=== PATIENT | male | born 1945 | race Caucasian/White ===

== ENCOUNTER 2017-03-18 14:47 | Inpatient (IN) | payer MEDICARE ==
[~2017-03-18] VITALS: Ht 170.2 cm; Wt 54.0 kg
[~2017-03-18 14:47] MED LIST: ALBU2.5V36 INH; ALP1 PO; ALPR-429 PO; ALPR-451 PO; ASPI500T53 PO; ATOR40TA24 PO; AZIT-1 PO; CALC1TAB32 PO; CALC500T42 PO; CAR350 PO; CARI-1 PO; CARI-327 PO; CEP500 PO; CIPDEXPT LEFT EAR; CLO1 PO; CLO75 PO; CLON-303 PO; CLOP75TA43 PO; ERGO400T9 PO; ESOM40CA42 PO; EZET10TA41 PO; EZET1TAB55 PO; FLU60SYR30 IM ONLY; GABA-549 PO; GEMF600T91 PO; KET10 PO; LEVO112T43 PO; LEVO75TA73 PO; MEGE40TA19 PO; MOM PO; OMEP-153 PO; OMEP-218 PO; ONDA4TAB PO; ONDA4TAB97 PO; POLY119P24 PO; RIZA10TA PO; SERT-179 PO; SERT-181 PO; TAMS0.4C25 PO; TAMS0.4C70 PO; TAPE100T9 PO; TAPE200T PO; TER20I; TIZA-128 PO; VAR1 PO; VERA240C10 PO; VERA240T84 PO; ZOLP-350 PO; [UNRECOGNIZED DRUG - CODE] ASDIRECTED; [UNRECOGNIZED DRUG - CODE] MC
[2017-03-18] MEDS ORDERED: NS(*) 0.9% 1000 ML BAG 1,000 ML IV ONE (14:48)
[2017-03-18] MEDS ORDERED: ALBUTEROL 2.5 MG/3 ML NEB NEB ONE (14:50)
--- NOTE | 2017-03-18 14:52 | ER Report ---
History and Physical Time Seen By MD: 14:52 Hx. of Stated Complaint: Dyspnea HPI/ROS Patient was sent here from urgent care with a diagnosis of right lower lobe pneumonia patient states she's felt ill for 1 month has seen urgent care multiple times states they have not giving him any treatment they felt his lungs were clear today was having sats in the 70s increased weakness chills and went to urgent care they did a chest x-ray incident to the emergency room Allergies: Coded Allergies: acetaminophen (Verified Allergy, Unknown, 03/18/17) bupropion (Verified Allergy, Unknown, 03/18/17) fentanyl (Verified Allergy, Unknown, 03/18/17) hydrocodone (Verified Allergy, Unknown, 03/18/17) hydromorphone (Verified Allergy, Unknown, 03/18/17) Home Meds Active Scripts Verapamil Hcl (VERAPAMIL ER) 240 Mg Cap24h.pel, 1 CAP PO QDAY, #60 CAP Prov:MARKO MEZA MD 02/25/17 Alprazolam (XANAX) 0.5 Mg Tablet, 2 TAB PO TID Y for ANXIETY, #60 TAB Prov:MARKO MEZA MD 01/25/17 Ondansetron Hcl (ZOFRAN) 4 Mg Tablet, 1 TAB PO Q4H Y for NAUSEA, #30 TAB 3 Refills Prov:MARKO MEZA MD 01/03/17 Tamsulosin Hcl (TAMSULOSIN HCL) 0.4 Mg Cap.er.24h, 1 CAP PO DAILY, #90 CAP 4 Refills Prov:MARKO MEZA MD 01/03/17 Sertraline Hcl (SERTRALINE HCL) 100 Mg Tablet, 1.5 TAB PO HS, #90 TAB 4 Refills Prov:MARKO MEZA MD 01/03/17 Clopidogrel Bisulfate (PLAVIX) 75 Mg Tablet, 1 TAB PO QDAY, #90 TAB 4 Refills Prov:MARKO MEZA MD 01/03/17 Rizatriptan Benzoate (MAXALT) 10 Mg Tablet, 1 TAB PO PRN for HEADACHE, #30 TAB 3 Refills Prov:MARKO MEZA MD 01/03/17 Ezetimibe (ZETIA) 10 Mg Tablet, 1 TAB PO QDAY, #90 TAB 2 Refills Prov:MARKO MEZA MD 10/14/16 Reported Medications Ezetimibe (ZETIA) 10 Mg Tablet, 10 MG PO QDAY, TAB 03/18/17 Carbidopa/Levodopa (CARBIDOPA-LEVO 25-100 MG ODT) 1 Each Tab.rapdis, 1 EACH PO BID 03/18/17 Tizanidine Hcl (TIZANIDINE HCL) 4 Mg Capsule, 4 MG PO TID, CAPSULE 03/18/17 Levothyroxine Sodium (LEVOTHYROXINE SODIUM) 100 Mcg Tablet, 125 MCG PO QDAY, TAB 03/18/17 Zolpidem Tartrate (AMBIEN) 10 Mg Tablet, 1 TAB PO QHS, TAB 11/03/16 Tens Units (TENS 504) 1 Each Each, EACH MC 11/03/16 Omeprazole Magnesium (PRILOSEC OTC) 20 Mg Tablet.dr, 1 TAB PO QDAY, TAB 11/03/16 Tapentadol Hcl (NUCYNTA) 100 Mg Tablet, 200 MG PO BID May take 75 mg for breakthrough pain 11/03/16 Polyethylene Glycol 3350 (MIRALAX) 119 Gm Powder, 119 GM PO BID 11/03/16 Magnesium Hydroxide (MILK OF MAGNESIA) Unknown Strength Oral.susp, PO, BOTTLE 11/03/16 Gabapentin (GABAPENTIN) 300 Mg Capsule, 300 MG PO BID, CAPSULE 11/03/16 Teriparatide (Forteo) 20 Mcg/Dose (600 Mcg/2.4 Ml) Pen.injctr, DAILY 11/03/16 Carisoprodol (CARISOPRODOL) 350 Mg Tablet, 350 MG PO DAILY, TAB 11/03/16 Calcium Carb & Cit/Vitamin D3 (CALCIUM + D3 ER TABLET) 1 Each Tablet.er, 1 TAB PO DAILY 11/03/16 Atorvastatin Calcium (LIPITOR) 40 Mg Tablet, 1 TAB PO QDAY, TAB 11/03/16 Aspirin (ASPIRIN) Unknown Strength Tablet, PO DAILY, TAB 11/03/16 Discontinued Scripts Levothyroxine Sodium (LEVOTHYROXINE SODIUM) 75 Mcg Tablet, 75 MCG PO QDAY, #90 TAB 4 Refills one and one half pills per day. started aflter last lab showed tsh of 91 Prov:MARKO MEZA MD 01/03/17 Past Medical/Surgical History hypothyroid, tonsillectomy, tia, coronary stent, hyperlipidemia, htn, gerd, hiatal hernia, amanda, appy, back pain, Reviewed Nurses Notes: Yes Old Medical Records Reviewed: Yes Hx Smoking: Yes (0.5 PPD) Smoking Status: Current: Every Day Smoker, Light Tobacco Smoker Hx Substance Use Disorder: No Hx Alcohol Use: No Family History of: Cardiac (mi father) Constitutional Vital Sign - Last 24 Hours 03/18/17 03/18/17 03/18/17 03/18/17 14:50 14:52 15:00 15:00 Temp 98.3 Pulse 75 66 Resp 20 18 B/P (MAP) 160/99 Pulse Ox 86 88 O2 Delivery Nasal Cannula Nasal Cannula O2 Flow Rate 2.5 4.0 03/18/17 03/18/17 03/18/17 03/18/17 15:06 15:08 15:17 15:30 Pulse 67 70 Resp 18 8 B/P (MAP) 145/92 (109) 140/84 (102) Pulse Ox 94 03/18/17 03/18/17 16:00 16:05 Pulse 70 Resp 12 B/P (MAP) 137/90 (106) Pulse Ox 92 Physical Exam 72-year-old male alert oriented moderate distress HEENT has normocephalic atraumatic tympanic membranes are non-reddened throat is non-reddened mucous membranes are moist neck is supple no JVD heart rate is regular no murmurs rubs or gallops lungs decreased bilateral bases crackles in the right base abdomen is soft bowel sounds 4 quadrants moves all extremities no peripheral edema Medical Decision Making Data Points Result Diagram: 03/18/17 1501 03/18/17 1501 Laboratory Hematology Test 03/18/17 15:01 03/18/17 15:09 03/18/17 15:52 Red Blood Count 4.92 M/uL (4.00-5.60) Mean Corpuscular Volume 92.2 fL (80.0-96.0) Mean Corpuscular Hemoglobin 31.6 pg (26.0-33.0) Mean Corpuscular Hemoglobin Concent 34.2 g/dL (32.0-36.0) Red Cell Distribution Width 12.3 % (11.5-14.5) Mean Platelet Volume 8.1 fL (7.2-11.1) Neutrophils (%) (Auto) 63.1 % (39.4-72.5) Lymphocytes (%) (Auto) 18.4 % (17.6-49.6) Monocytes (%) (Auto) 15.4 % (4.1-12.4) Eosinophils (%) (Auto) 1.9 % (0.4-6.7) Basophils (%) (Auto) 1.2 % (0.3-1.4) Nucleated RBC Relative Count (auto) 0.1 /100WBC Neutrophils # (Auto) 6.3 K/uL (2.0-7.4) Lymphocytes # (Auto) 1.8 K/uL (1.3-3.6) Monocytes # (Auto) 1.5 K/uL (0.3-1.0) Eosinophils # (Auto) 0.2 K/uL (0.0-0.5) Basophils # (Auto) 0.1 K/uL (0.0-0.1) Nucleated RBC Absolute Count (auto) 0.01 K/uL D-Dimer Quantitative (PE/DVT) 0.42 ug/ml (0-0.50) Sodium Level 142 mmol/L (137-145) Potassium Level 3.4 mmol/L (3.5-5.0) Chloride Level 105 mmol/L (98-107) Carbon Dioxide Level 28 mmol/L (22-30) Blood Urea Nitrogen 16 mg/dl (9-21) Creatinine 1.20 mg/dl (0.66-1.25) Glomerular Filtration Rate Calc 59.2 Random Glucose 76 mg/dl (75-110) Calcium Level 8.5 mg/dl (8.4-10.2) Magnesium Level 1.8 mg/dl (1.7-2.2) Total Bilirubin 0.7 mg/dl (0.2-1.3) Aspartate Amino Transf (AST/SGOT) 20 U/L (0-35) Alanine Aminotransferase (ALT/SGPT) 25 U/L (0-56) Alkaline Phosphatase 95 U/L (0-126) Troponin I < 0.012 ng/ml B-Type Natriuretic Peptide 1400 pg/ml (0-100) Total Protein 6.6 gm/dl (6.3-8.2) Albumin 3.3 g/dl (3.5-5.0) Influenza Virus Type A (PCR) Negative (NEGATIVE) Influenza Virus Type B (PCR) Negative (NEGATIVE) Urine Color Zoë Urine Clarity Clear Urine pH 5.0 pH (4.8-9.5) Urine Specific [place] 1.032 Urine Protein 30 mg/dL (NEGATIVE) Urine Glucose (UA) Negative mg/dL (NEGATIVE) Urine Ketones Negative mg/dL (NEGATIVE) Urine Blood Negative (NEGATIVE) Urine Nitrite Negative (NEGATIVE) Urine Bilirubin Small (NEGATIVE) Urine Urobilinogen 4.0 mg/dL (0.2-1.9) Urine Leukocyte Esterase Negative (NEGATIVE) Urine RBC <1 /HPF (0-2/HPF) Urine WBC 2 /HPF (0-5/HPF) Urine Squamous Epithelial Cells None /LPF (</=FEW) Urine Calcium Oxalate Crystals Few /HPF (NONE) Urine Bacteria Negative /HPF (NONE-FEW) Urine Hyaline Casts Few /LPF (NONE-FEW) Urine Mucus Few /HPF (NONE-FEW) Chemistry Test 03/18/17 15:01 03/18/17 15:09 03/18/17 15:52 White Blood Count 10.0 k/uL (4.5-11.0) Red Blood Count 4.92 M/uL (4.00-5.60) Hemoglobin 15.5 g/dL (14.0-18.0) Hematocrit 45.3 % (42.0-52.0) Mean Corpuscular Volume 92.2 fL (80.0-96.0) Mean Corpuscular Hemoglobin 31.6 pg (26.0-33.0) Mean Corpuscular Hemoglobin Concent 34.2 g/dL (32.0-36.0) Red Cell Distribution Width 12.3 % (11.5-14.5) Platelet Count 153 K/uL (150-450) Mean Platelet Volume 8.1 fL (7.2-11.1) Neutrophils (%) (Auto) 63.1 % (39.4-72.5) Lymphocytes (%) (Auto) 18.4 % (17.6-49.6) Monocytes (%) (Auto) 15.4 % (4.1-12.4) Eosinophils (%) (Auto) 1.9 % (0.4-6.7) Basophils (%) (Auto) 1.2 % (0.3-1.4) Nucleated RBC Relative Count (auto) 0.1 /100WBC Neutrophils # (Auto) 6.3 K/uL (2.0-7.4) Lymphocytes # (Auto) 1.8 K/uL (1.3-3.6) Monocytes # (Auto) 1.5 K/uL (0.3-1.0) Eosinophils # (Auto) 0.2 K/uL (0.0-0.5) Basophils # (Auto) 0.1 K/uL (0.0-0.1) Nucleated RBC Absolute Count (auto) 0.01 K/uL D-Dimer Quantitative (PE/DVT) 0.42 ug/ml (0-0.50) Glomerular Filtration Rate Calc 59.2 Calcium Level 8.5 mg/dl (8.4-10.2) Magnesium Level 1.8 mg/dl (1.7-2.2) Total Bilirubin 0.7 mg/dl (0.2-1.3) Aspartate Amino Transf (AST/SGOT) 20 U/L (0-35) Alanine Aminotransferase (ALT/SGPT) 25 U/L (0-56) Alkaline Phosphatase 95 U/L (0-126) Troponin I < 0.012 ng/ml B-Type Natriuretic Peptide 1400 pg/ml (0-100) Total Protein 6.6 gm/dl (6.3-8.2) Albumin 3.3 g/dl (3.5-5.0) Influenza Virus Type A (PCR) Negative (NEGATIVE) Influenza Virus Type B (PCR) Negative (NEGATIVE) Urine Color Zoë Urine Clarity Clear Urine pH 5.0 pH (4.8-9.5) Urine Specific [place] 1.032 Urine Protein 30 mg/dL (NEGATIVE) Urine Glucose (UA) Negative mg/dL (NEGATIVE) Urine Ketones Negative mg/dL (NEGATIVE) Urine Blood Negative (NEGATIVE) Urine Nitrite Negative (NEGATIVE) Urine Bilirubin Small (NEGATIVE) Urine Urobilinogen 4.0 mg/dL (0.2-1.9) Urine Leukocyte Esterase Negative (NEGATIVE) Urine RBC <1 /HPF (0-2/HPF) Urine WBC 2 /HPF (0-5/HPF) Urine Squamous Epithelial Cells None /LPF (</=FEW) Urine Calcium Oxalate Crystals Few /HPF (NONE) Urine Bacteria Negative /HPF (NONE-FEW) Urine Hyaline Casts Few /LPF (NONE-FEW) Urine Mucus Few /HPF (NONE-FEW) Coagulation Test 03/18/17 15:01 D-Dimer Quantitative (PE/DVT) 0.42 ug/ml Urinalysis Test 03/18/17 15:52 Urine Color Zoë Urine Clarity Clear Urine pH 5.0 pH (4.8-9.5) Urine Specific [place] 1.032 Urine Protein 30 mg/dL (NEGATIVE) Urine Glucose (UA) Negative mg/dL (NEGATIVE) Urine Ketones Negative mg/dL (NEGATIVE) Urine Blood Negative (NEGATIVE) Urine Nitrite Negative (NEGATIVE) Urine Bilirubin Small (NEGATIVE) Urine Urobilinogen 4.0 mg/dL (0.2-1.9) Urine Leukocyte Esterase Negative (NEGATIVE) Urine RBC <1 /HPF (0-2/HPF) Urine WBC 2 /HPF (0-5/HPF) Urine Squamous Epithelial Cells None /LPF (</=FEW) Urine Calcium Oxalate Crystals Few /HPF (NONE) Urine Bacteria Negative /HPF (NONE-FEW) Urine Hyaline Casts Few /LPF (NONE-FEW) Urine Mucus Few /HPF (NONE-FEW) EKG/Imaging Imaging FACILITY: [facility] [place] PATIENT NAME: Zurdo Munoz : 1945 MR: [id number] V: [id number] EXAM DATE: ORDERING PHYSICIAN: IZZY FOFANA TECHNOLOGIST: Location: [facility] [place] Patient: Zurdo Munoz : 1945 Visit/Account:[id number] Date of Sevice: 03/18/2017 CHEST SINGLE AP Indication: Respiratory distress.. Comparison: 10/06/2015. Findings: Cardiac silhouette is upper limits normal for size. Mediastinal silhouette and pulmonary vessels within normal limits. There is right lower lobe patchy hazy opacity with a associated pleural effusion. The remaining lung vásquez are clear. No left effusion. No pneumothorax or discrete nodule. Chronic interstitial changes seen bilaterally. Upper abdomen is unremarkable. No acute bony abnormality. IMPRESSION: 1. Small right pleural effusion with associated atelectasis versus early infiltrate. Report Dictated By: Jason Dawson at 03/18/2017 3:26 PM Report E-Signed By: Jason Dawson at 03/18/2017 3:28 PM WSN:[id number] ED Course/Re-evaluation Clinical Indication for ER IV: Hydration ED Course Initial doses of Levaquin and Zosyn given on arrival note that he did receive DuoNeb and Solu-Medrol 125 in the emergency room did talk to Dr. Shamar Lemon but this patient will that made him for pleural effusion Re-evaluation Talk to Dr. Shamar demarco son about this patient and he will be admitted from the emergency room Decision to Disposition Date: Mar 18, 2017 Decision to Disposition Time: 16:18 Depart Departure Latest Vital Signs Vital Signs Date Time Temp Pulse Resp B/P (MAP) Pulse Ox O2 Delivery O2 Flow Rate FiO2 03/18/17 16:05 70 12 92 03/18/17 16:00 137/90 (106) 03/18/17 15:00 Nasal Cannula 4.0 03/18/17 14:52 98.3 Impression: Primary Impression: Pneumonia Additional Impressions: Pleural effusion Hypoxia COPD (chronic obstructive pulmonary disease) Condition: Improved Disposition: Admitted from ER Referrals: MARKO MEZA MD (PCP) Problem Qualifiers IZZY FOFANA Mar 18, 2017 14:52
[2017-03-18] MEDS ORDERED: methylPREDNIS SUCC 125 MG/2ML IVP ONE (15:10)
[2017-03-18] MEDS ORDERED: PIPERACILLIN/TAZO*3.375GM VIAL 3.375 GM in NS(*) 0.9% 100 ML ADDVANT BAG 100 ML IVPB ONE (15:15)
[2017-03-18] MEDS ORDERED: LEVOFLOXACIN/D5W 750 MG/150 ML 150 ML IVPB ONE ×2 (15:15→16:35)
[2017-03-18 15:22] LABS: PLATELET COUNT, AUTOMATED 153 K/uL (150-450)
--- NOTE | 2017-03-18 15:34 | RADIOLOGY IMAGING REPORT ---
FACILITY: [facility] PATIENT NAME: Zurdo Munoz : 1945 MR: [id number] V: [id number] EXAM DATE: ORDERING PHYSICIAN: IZZY FOFANA TECHNOLOGIST: Location: [facility] Patient: Zurdo Munoz : 1945 Visit/Account:[id number] Date of Sevice: 03/18/2017 CHEST SINGLE AP Indication: Respiratory distress.. Comparison: 10/06/2015. Findings: Cardiac silhouette is upper limits normal for size. Mediastinal silhouette and pulmonary vessels with in normal limits. There is right lower lobe patchy hazy opacity with a associated pleural effusion. The remaining lung vásquez are clear. No left effusion. No pneumothorax or discrete nodule. Chronic interstitial changes seen bilaterally. Upper abdomen is unremarkable. No acute bony abnormali ty. IMPRESSION: 1. Small right pleural effusion with associated atelectasis versus early infiltrate. Report Dictated By: Jason Dawson at 03/18/2017 3:26 PM Report E-Signed By: Jason Dawson at 03/18/2017 3:28 PM WSN:[id number]
--- NOTE | 2017-03-18 16:01 | EKG ---
FACILITY: [facility] [place] PATIENT NAME: CHERELLE ROBLES : [id number] MR: [id number] V: [id number] EXAM DATE: ORDERING PHYSICIAN: IZZY FOFANA TECHNOLOGIST: ROSA MARIA Test Reason : SOB Blood Pressure : / mmHG Vent. Rate : 069 BPM Atrial Rate : 069 BPM P-R Int : 142 ms QRS Dur : 086 ms QT Int : 468 ms P-R-T Axes : 059 006 051 degrees QTc Int : 501 ms Sinus rhythm Possible Left atrial enlargement Prolonged QT Abnormal ECG Confirmed by PANCHO LA ([id number]) on 03/18/2017 8:20:12 PM Referred By: MINA Confirmed By:PANCHO LA
[2017-03-18] MEDS ORDERED: LEVO-3 PO (16:06)
[2017-03-18] MEDS ORDERED: EZET10TA41 PO (16:06)
[2017-03-18] MEDS ORDERED: CARB-127 PO (16:06)
[2017-03-18] MEDS ORDERED: TIZA4CAP3 PO (16:06)
[2017-03-18 17:48] VITALS: BP 153/86
[2017-03-18] MEDS ORDERED: NS(*) 0.9% 1000 ML BAG 1,000 ML IV PRN (18:24)
--- NOTE | 2017-03-18 19:06 | History & Physical ---
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 He reports increasing dyspnea, cough over past few months. He reports very little sputum production. No obvious fevers/chills. He has had some decreased appetite in past, but reports this has been improved. His weight has actually increased since last summer. He denies any CP or palpitations. He does report some orthopnea type symptoms. He was evaluate din the ER and found to have RLL infiltrate and pleural effusion on CXR. His BNP was also elevated at 1400. His troponin was negative and d-dimer was in normal range. His WBC count is in normal range. He was recommended for admission. History Problems: (1) Osteoporosis Status: Chronic (2) Osteoporotic compression fracture of spine Status: Chronic (3) Hypothyroidism Status: Chronic (4) History of appendectomy Status: Resolved (5) History of partial thyroidectomy Status: Resolved (6) CAD (coronary artery disease) Status: Chronic (7) Stented coronary artery Status: Chronic (8) TIA (transient ischemic attack) Status: Chronic (9) Migraines Status: Chronic (10) History of inguinal herniorrhaphy Status: Resolved (11) COPD (chronic obstructive pulmonary disease) Status: Chronic (12) Chronic pain Status: Chronic Home Meds Active Scripts Verapamil Hcl (VERAPAMIL ER) 240 Mg Cap24h.pel, 1 CAP PO QDAY, #60 CAP Prov:MARKO MEZA MD 02/25/17 Alprazolam (XANAX) 0.5 Mg Tablet, 2 TAB PO TID Y for ANXIETY, #60 TAB Prov:MARKO MEZA MD 01/25/17 Ondansetron Hcl (ZOFRAN) 4 Mg Tablet, 1 TAB PO Q4H Y for NAUSEA, #30 TAB 3 Refills Prov:MARKO MEZA MD 01/03/17 Tamsulosin Hcl (TAMSULOSIN HCL) 0.4 Mg Cap.er.24h, 1 CAP PO DAILY, #90 CAP 4 Refills Prov:MARKO MEZA MD 01/03/17 Sertraline Hcl (SERTRALINE HCL) 100 Mg Tablet, 1.5 TAB PO HS, #90 TAB 4 Refills Prov:MARKO MEZA MD 01/03/17 Clopidogrel Bisulfate (PLAVIX) 75 Mg Tablet, 1 TAB PO QDAY, #90 TAB 4 Refills Prov:MARKO MEZA MD 01/03/17 Rizatriptan Benzoate (MAXALT) 10 Mg Tablet, 1 TAB PO PRN for HEADACHE, #30 TAB 3 Refills Prov:MARKO MEZA MD 01/03/17 Ezetimibe (ZETIA) 10 Mg Tablet, 1 TAB PO QDAY, #90 TAB 2 Refills Prov:MARKO MEZA MD 10/14/16 Reported Medications Ezetimibe (ZETIA) 10 Mg Tablet, 10 MG PO QDAY, TAB 03/18/17 Carbidopa/Levodopa (CARBIDOPA-LEVO 25-100 MG ODT) 1 Each Tab.rapdis, 1 EACH PO BID 03/18/17 Tizanidine Hcl (TIZANIDINE HCL) 4 Mg Capsule, 4 MG PO TID, CAPSULE 03/18/17 Levothyroxine Sodium (LEVOTHYROXINE SODIUM) 100 Mcg Tablet, 125 MCG PO QDAY, TAB 03/18/17 Zolpidem Tartrate (AMBIEN) 10 Mg Tablet, 1 TAB PO QHS, TAB 11/03/16 Tens Units (TENS 504) 1 Each Each, EACH MC 11/03/16 Omeprazole Magnesium (PRILOSEC OTC) 20 Mg Tablet.dr, 1 TAB PO QDAY, TAB 11/03/16 Tapentadol Hcl (NUCYNTA) 100 Mg Tablet, 200 MG PO BID May take 75 mg for breakthrough pain 11/03/16 Polyethylene Glycol 3350 (MIRALAX) 119 Gm Powder, 119 GM PO BID 11/03/16 Magnesium Hydroxide (MILK OF MAGNESIA) Unknown Strength Oral.susp, PO, BOTTLE 11/03/16 Gabapentin (GABAPENTIN) 300 Mg Capsule, 300 MG PO BID, CAPSULE 11/03/16 Teriparatide (Forteo) 20 Mcg/Dose (600 Mcg/2.4 Ml) Pen.injctr, DAILY 11/03/16 Carisoprodol (CARISOPRODOL) 350 Mg Tablet, 350 MG PO DAILY, TAB 11/03/16 Calcium Carb & Cit/Vitamin D3 (CALCIUM + D3 ER TABLET) 1 Each Tablet.er, 1 TAB PO DAILY 11/03/16 Atorvastatin Calcium (LIPITOR) 40 Mg Tablet, 1 TAB PO QDAY, TAB 11/03/16 Aspirin (ASPIRIN) Unknown Strength Tablet, PO DAILY, TAB 11/03/16 Discontinued Scripts Levothyroxine Sodium (LEVOTHYROXINE SODIUM) 75 Mcg Tablet, 75 MCG PO QDAY, #90 TAB 4 Refills one and one half pills per day. started aflter last lab showed tsh of 91 Prov:MARKO MEZA MD 01/03/17 Allergies: Coded Allergies: acetaminophen (Verified Allergy, Unknown, 03/18/17) bupropion (Verified Allergy, Unknown, 03/18/17) fentanyl (Verified Allergy, Unknown, 03/18/17) hydrocodone (Verified Allergy, Unknown, 03/18/17) hydromorphone (Verified Allergy, Unknown, 03/18/17) Patient History: FH: CHF (congestive heart failure) MOTHER, Onset:Unknown FH: alcohol abuse BROTHER OR SISTER, Onset:Unknown FH: depression MOTHER, Onset:Unknown BROTHER OR SISTER, Onset:Unknown FH: diabetes mellitus BROTHER OR SISTER, Onset:Unknown High cholesterol CHILD, Onset:Unknown No Family History of: FHx: colon cancer Hx Smoking: Yes (0.5 PPD) Smoking Status: Current: Every Day Smoker Caffeine/Cups Per Day: none Hx Alcohol Use: No Hx Substance Use Disorder: No Review of Systems Constitutional: Weight Gain, No Fever, No Chills, No Night Sweats Neurological: Weakness Eyes: No Vision Change, No Loss of Vision ENT: No Hearing Loss, No Sinus Congestion Cardiovascular: No Chest Pain, No Palpitations Respiratory: Shortness of Breath, Cough Gastrointestinal: Nausea, No Vomiting, No Hematemesis, No Hematochezia, No Melena, No Abdominal Pain Genitourinary: No Dysuria Musculoskeletal: Pain, Impaired Mobility Psychiatric: Depression Exam Vital Signs Vital Signs Date Time Temp Pulse Resp B/P (MAP) Pulse Ox O2 Delivery O2 Flow Rate FiO2 03/18/17 17:50 90 Nasal Cannula 5.0 03/18/17 17:48 97.4 75 22 153/86 (108) General Appearance: Alert, Awake Neuro: No Gross deficits Eyes: PERRLA ENT: Oropharynx Clear Neck: No Masses Cardiovascular: Regular Rate and Rhythm Respiratory: Other (diminished breath sounds bilaterally with rales at right base no wheezes) Chest: No Tenderness GI: Abd Soft and Non-Tender (thin/no masses or HSM noted/BS present) : No CVA Tenderness Lymph: No Adenopathy Extremities: Warm, Perfused, Edema (trace both feet/ankles) Integumentary: Scaly / Dry Skin Psych: Alert & Oriented X3 Medical Decision Making Data Points Result Diagram: 03/18/17 1501 03/18/17 1501 Item Value Date Time Albumin 3.3 g/dl L 03/18/17 1501 Total Protein 6.6 gm/dl 03/18/17 1501 B-Type Natriuretic Peptide 1400 pg/ml H 03/18/17 1501 Troponin I < 0.012 ng/ml 03/18/17 1501 Alkaline Phosphatase 95 U/L 03/18/17 1501 Alanine Aminotransferase (ALT/SGPT) 25 U/L 03/18/17 1501 Aspartate Amino Transf (AST/SGOT) 20 U/L 03/18/17 1501 Total Bilirubin 0.7 mg/dl 03/18/17 1501 Magnesium Level 1.8 mg/dl 03/18/17 1501 Calcium Level 8.5 mg/dl 03/18/17 1501 Urine Mucus Few /HPF 03/18/17 1552 Urine Hyaline Casts Few /LPF 03/18/17 1552 Urine Bacteria Negative /HPF 03/18/17 1552 Urine Calcium Oxalate Crystals Few /HPF H 03/18/17 1552 Urine Squamous Epithelial Cells None /LPF 03/18/17 1552 Urine WBC 2 /HPF 03/18/17 1552 Urine RBC <1 /HPF 03/18/17 1552 Urine Leukocyte Esterase Negative 03/18/17 1552 Urine Urobilinogen 4.0 mg/dL H 03/18/17 1552 Urine Bilirubin Small 03/18/17 1552 Urine Nitrite Negative 03/18/17 1552 Urine Blood Negative 03/18/17 1552 Urine Ketones Negative mg/dL 03/18/17 1552 Urine Glucose (UA) Negative mg/dL 03/18/17 1552 Urine Protein 30 mg/dL 03/18/17 1552 Urine Specific [place] 1.032 03/18/17 1552 Urine pH 5.0 pH 03/18/17 1552 Urine Clarity Clear 03/18/17 1552 Urine Color Zoë 03/18/17 1552 Influenza Virus Type A (PCR) Negative 03/18/17 1509 Influenza Virus Type B (PCR) Negative 03/18/17 1509 D-Dimer Quantitative (PE/DVT) 0.42 ug/ml 03/18/17 1501 EKG / Imaging Imaging PATIENT NAME: Zurdo Munoz : 1945 MR: [id number] V: [id number] EXAM DATE: ORDERING PHYSICIAN: IZZY FOFANA TECHNOLOGIST: Location: Patient: Zurdo Munoz : 1945 Visit/Account:[id number] Date of Sevice: 03/18/2017 CHEST SINGLE AP Indication: Respiratory distress.. Comparison: 10/06/2015. Findings: Cardiac silhouette is upper limits normal for size. Mediastinal silhouette and pulmonary vessels within normal limits. There is right lower lobe patchy hazy opacity with a associated pleural effusion. The remaining lung vásquez are clear. No left effusion. No pneumothorax or discrete nodule. Chronic interstitial changes seen bilaterally. Upper abdomen is unremarkable. No acute bony abnormality. IMPRESSION: 1. Small right pleural effusion with associated atelectasis versus early infiltrate. Report Dictated By: Jason Dawson at 03/18/2017 3:26 PM Report E-Signed By: Jason Dawson at 03/18/2017 3:28 PM [id number] Assessment and Plan Problems: (1) Pneumonia Status: Acute Assessment & Plan: It appears he may have an acute pneumonia with small pleural effusion. In reviewing his previous radiologic procedures, however, it appears he had some RLL infiltrate/scarring on a previous CT scan. Will get CT scan to evaluate for possibility of an underlying mass. Will place him on IV Rocephin and Doxycycline for coverage of a potential pneumonia. Will give him supplemental oxygen as needed. Cultures of blood and sputum were done in the ER prior to antibiotics. (2) Pleural effusion Status: Acute Assessment & Plan: Appears to be relatively small. Will check on CT scan. Will also check echocardiogram as his BNP is quite elevated and this could represent some CHF. (3) Hypoxia Status: Acute Assessment & Plan: Due to pneumonia and COPD. It sounds like he has been borderline hypoxic for quite some time. Will give supplemental oxygen. (4) COPD (chronic obstructive pulmonary disease) Status: Chronic Assessment & Plan: Due to smoking. He has not really been on any specific treatment up to this point. (5) Osteoporosis Status: Chronic Assessment & Plan: Will continue his Forteo and Calcium/vitamin D. (6) Hypothyroidism Status: Chronic Assessment & Plan: He is currently on a regimen of L-thyroxine 0.075mg two tabs four days a week and one and one-half tabs three days a week. This would be very close to 0.137mg daily, so will make the switch to a little easier regimen to manage. Check TSH. (7) CAD (coronary artery disease) Status: Chronic Assessment & Plan: He has had previous stenting. Will continue his Plavix and atorvastatin. 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 He is on the Forteo and calcium. These also cause the chronic pain and he is treated with the Nucynta. (9) Chronic pain Status: Chronic Assessment & Plan: Continue Nucynta. Venous Thromboembolism Antithrombotics Is Pt On Any Antithrombotics?: Yes Exam Sepsis Risk: No Definite Risk PANCHO LA MD Mar 18, 2017 19:06
[2017-03-18] MEDS ORDERED: NS 0.9% 50 ML VIAL 50 ML ONE (19:19)
[2017-03-18] MEDS ORDERED: IOPAMIDOL 76% 75 ML INFUS BTL 75 ML ONE (19:19)
[2017-03-18 19:23] VITALS: BP 151/94
[2017-03-18] MEDS ORDERED: cefTRIAXone(*) 1 GM VIAL 1 GM in NS(*) 0.9% 100 ML ADDVANT BAG 100 ML IVPB SCH (20:00)
[2017-03-18] MEDS ORDERED: PATIENT'S OWN MED PO SCH (21:00)
[2017-03-18] MEDS: ZOLPIDEM TARTRATE 10 MG TAB PO SCH (21:29)
[2017-03-18] MEDS: DOXYCYCLINE HYCL 100 MG VIAL 100 MG in NS(*) 0.9% 250 ML BAG 250 ML IV SCH (21:29)
[2017-03-18] MEDS: cefTRIAXone 1 GM VIAL IVP SCH (21:29)
[2017-03-18] MEDS: SERTRALINE HCL 50 MG TAB PO SCH (21:30)
[2017-03-18] MEDS: ATORVASTATIN 40 MG TAB PO SCH (21:30)
[2017-03-18] MEDS: VERAPAMIL HCL SR 240 MG TABCR PO SCH (21:30)
[2017-03-18] MEDS: ALPRAZolam 0.5 MG TAB PO PRN (21:38)
[2017-03-18] MEDS: KCL/NS* 20 MEQ/1000 ML PREMIX 1,000 ML IV SCH (21:39)
[2017-03-18] MEDS ORDERED: KCL/NS* 20 MEQ/1000 ML PREMIX 1,000 ML IV ONE (21:44)
[2017-03-18 21:54] VITALS: BP 162/99
[2017-03-18] MEDS ORDERED: ATOR40TA69 PO (23:28)
[2017-03-18] MEDS ORDERED: LEVO75TA73 PO (23:40)
[2017-03-18] MEDS ORDERED: TAPE75TA PO (23:42)
[2017-03-18] MEDS ORDERED: OMEP40CA48 PO (23:46)
[2017-03-18] MEDS ORDERED: VAR05PT PO (23:47)
[2017-03-18] MEDS ORDERED: FLUD0.1T12 PO (23:49)
--- NOTE | 2017-03-19 02:06 | RADIOLOGY IMAGING REPORT ---
FACILITY: [facility] PATIENT NAME: Zurdo Munoz : 1945 MR: [id number] V: [id number] EXAM DATE: ORDERING PHYSICIAN: PANCHO LA TECHNOLOGIST: Location: [facility] [place] Patient: Zurdo Munoz : 1945 Visit/Account:[id number] Date of Sevice: 03/18/2017 COMPUTED TOMOGRAPHY CHEST WITH AND WITHOUT INTRAVENOUS CONTRAST DATE OF EXAM: 03/18/2017 6:40 PM CLINICAL INDICATION: Infiltrate versus mass in the right lower lobe. COMPARISON: Same-day radiograph. Previous chest CT images not available at the time of dictation. TECHNIQUE: Contrast pre and postcontrast chest CT. The patient received 75 ml of Isovue 370. Sagitt al and coronal multiplanar reconstructions were performed. One of the following dose optimization te chniques was utilized in the performance of this exam: Automated exposure control; adjustment of the mA and/or kV according to the patient's size; or use of an iterative reconstruction technique. [facility] details can be referenced in the facility's radiology CT exam operational policy. FINDINGS: Thyroid: Peripherally calcified right thyroid lesion measures 17 x 11 mm on image 3 series 7. Thoracic inlet: No adenopathy. Heart and great vessels: Heart size is within normal limits. Prominent coronary artery calcificatio ns. Nonaneurysmal aorta with moderate atherosclerosis. Moderate narrowing of the left subclavian ar tania. Mediastinum and nannette: There are mildly enlarged mediastinal lymph nodes. Precarinal node on image 4 9 series 7 measures 18 x 11 mm. Subcarinal node on image 55 measures 21 x 15 mm. Lungs and pleura: Right larger than left small pleural effusions with adjacent atelectasis/consolida tion. 5 mm right lower lobe nodule on image 72 series 7. Additional irregular nodule in the right m iddle lobe on image 85 measures 9 x 5 mm. Moderate upper lobe predominant centrilobular emphysema. Breast and axilla: No adenopathy. Upper abdomen: Nonacute. Cholecystectomy. Bones and soft tissues: No acute abnormality or suspicious lesion. Multilevel remote appearing comp ression deformities in the mid and lower thoracic spine end imaged upper lumbar spine. IMPRESSION: 1. Right greater than left small volume pleural effusions with adjacent atelectasis/consolidation. No definite mass, although follow-up at resolution of current symptoms could be performed to exclude underlying lesion. 2. Moderate upper lobe predominant centrilobular emphysema. 3. Mildly enlarged mediastinal lymph nodes are likely reactive. 4. Prominent coronary artery calcifications. 5. 17 x 11 mm peripherally calcified right thyroid lesion. Per report, this is been present since a t least the neck CT on 10/22/2013 and is of doubtful clinical significance. 6. Pulmonary nodules measuring up to 9 x 5 mm. Current Fleischner Society recommendations for multip le pulmonary nodules 6-8 mm (average of long and short axis): - Low risk: Noncontrast CT at 3-6 months, then consider CT at 18-24 months. - High risk: Noncontrast CT at 3-6 months, then at 18-24 months. Use most suspicious nodule as guide to management. Lena H, Michell D, Goo J, et al. Guidelines for management of small pulmonary nodules detected on CT images: from the Fleischner society 2017. Report Dictated By: Caesar Tian MD at 03/19/2017 1:33 AM Report E-Signed By: Caesar Tian MD at 03/19/2017 2:02 AM WSN:[id number]
[2017-03-19] MEDS: LEVOTHYROXINE SOD 0.137 MG TAB PO SCH (05:20)
[2017-03-19] MEDS: PATIENT'S OWN MED PO SCH ×3 (05:21→17:59)
[2017-03-19 05:27] VITALS: BP 148/90
[2017-03-19 05:30] LABS: PLATELET COUNT, AUTOMATED 147 K/uL (150-450)
[2017-03-19 07:31] VITALS: BP 145/93
--- NOTE | 2017-03-19 08:06 | EKG ---
FACILITY: [facility] PATIENT NAME: CHERELLE ROBLES : [id number] MR: [id number] V: [id number] EXAM DATE: ORDERING PHYSICIAN: PANCHO LA TECHNOLOGIST: KODY Cowart Reason : PROLONGED QT Blood Pressure : / mmHG Vent. Rate : 080 BPM Atrial Rate : 080 BPM P-R Int : 154 ms QRS Dur : 086 ms QT Int : 422 ms P-R-T Axes : 070 070 -29 degrees QTc Int : 486 ms Normal sinus rhythm Prolonged QT Abnormal ECG When compared with ECG of 18-MAR-2017 14:59, Previous ECG has undetermined rhythm, needs review Questionable change in QRS axis Nonspecific T wave abnormality, worse in Inferior leads Confirmed by KIRK BARAJAS ([id number]) on 03/19/2017 8:38:16 PM Referred By: BESSIE Confirmed By:KIRK BARAJAS
[2017-03-19] MEDS: CALCIUM CARBONATE/VITAMIN D3 PO SCH ×2 (08:22→17:58)
[2017-03-19] MEDS: ACETAMINOPHEN 500 MG TAB PO PRN (08:22)
[2017-03-19] MEDS: PANTOPRAZOLE SOD 40 MG TABEC PO SCH (08:52)
[2017-03-19] MEDS: CLOPIDOGREL BISULFATE 75MG TAB PO SCH (08:53)
[2017-03-19] MEDS: EZETIMIBE 10 MG TAB PO SCH (08:53)
[2017-03-19] MEDS: ENOXAPARIN 40 MG/0.4ML SYR SC SCH (08:55)
[2017-03-19] MEDS: TAMSULOSIN HCL 0.4 MG CAP PO SCH (08:55)
[2017-03-19] MEDS: DOXYCYCLINE HYCL 100 MG VIAL 100 MG in NS(*) 0.9% 250 ML BAG 250 ML IV SCH ×2 (08:57→21:10)
[2017-03-19] MEDS: POLYETHYLENE GLYCOL 17 GM PKT PO SCH (08:57)
[2017-03-19] MEDS ORDERED: VERAPAMIL HCL SR 240 MG TABCR PO SCH (09:00)
[2017-03-19] MEDS ORDERED: PATIENT'S OWN MED SUBQ SCH (09:00)
[2017-03-19] MEDS ORDERED: SERTRALINE HCL 50 MG TAB PO SCH (09:00)
[2017-03-19] MEDS: ALPRAZolam 0.5 MG TAB PO PRN ×2 (10:25→20:00)
[2017-03-19] MEDS: PATIENT'S OWN MED PO PRN (10:25)
--- NOTE | 2017-03-19 11:47 | Hospitalist Progress Note ---
Subjective Progress Notes Subjective The patient states overall he is doing well. He has pain in his back which is chronic for him. He also has a headache. He usually takes Tylenol for headaches at home. Physical Exam Vital Signs Date Time Temp Pulse Resp B/P (MAP) Pulse Ox O2 Delivery O2 Flow Rate FiO2 03/19/17 05:27 98.0 79 18 148/90 (109) 90 High-Flow Nasal Cannula 6.0 Intake and Output 03/20/17 07:00 Intake Total 284 ml Balance 284 ml IV Total 284 ml General Appearance: Alert, Awake, No Acute Distress, Afebrile Neuro: No Gross deficits Eyes: PERRLA Cardiovascular: Regular Rate and Rhythm Respiratory: Other (Normal excursion bilaterally. Decreased fremitus, right lower lung field. Egophony R lower lung posteriorly.) GI: Soft and Non-Tender Extremities: Warm, Perfused Integumentary: Skin Intact without Lesion / Mass Psych: Appropriate Mood & Affect Result Diagram: 03/19/1751503/19/1716 Assessment and Plan Problems: (1) Pneumonia Status: Acute Assessment & Plan: It appears he may have an acute pneumonia with small pleural effusion. In reviewing his previous radiologic procedures, however, it appears he had some RLL infiltrate/scarring on a previous CT scan. Current CT scan shows bilateral pleural effusion, R>L with associated infiltrate versus atelectasis. He is on IV Rocephin and Doxycycline for coverage of a potential pneumonia. Will give him supplemental oxygen as needed. Cultures of blood are negative. Sputum culture is growing a gram negative danny. (2) Pleural effusion Status: Acute Assessment & Plan: See above. Will also check echocardiogram as his BNP is quite elevated and this could represent some CHF. (3) Hypoxia Status: Acute Assessment & Plan: Due to pneumonia and COPD. It sounds like he has been borderline hypoxic for quite some time. Will give supplemental oxygen. (4) COPD (chronic obstructive pulmonary disease) Status: Chronic Assessment & Plan: Due to smoking. He has not really been on any specific treatment up to this point. Will place him on Duonebs tid here. (5) Osteoporosis Status: Chronic Assessment & Plan: Will continue his Forteo and Calcium/vitamin D. (6) Hypothyroidism Status: Chronic Assessment & Plan: He is currently on a regimen of L-thyroxine 0.075mg two tabs four days a week and one and one-half tabs three days a week. This would be very close to 0.137mg daily, so will make the switch to a little easier regimen to manage. Check TSH. (7) CAD (coronary artery disease) Status: Chronic Assessment & Plan: He has had previous stenting. Will continue his Plavix and atorvastatin. 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 He is on the Forteo and calcium. These also cause the chronic pain and he is treated with the Nucynta. (9) Chronic pain Status: Chronic Assessment & Plan: Continue Nucynta. Time Spent on Plan of Care: < 30 min Exam Sepsis Risk: No Definite Risk KIRK LA MD Mar 19, 2017 11:47
[2017-03-19] MEDS: ALBUTEROL/IPRATROPIUM 3 ML NEB NEB SCH ×2 (12:45→17:57)
[2017-03-19 12:55] VITALS: BP 162/93
[2017-03-19] MEDS ORDERED: RIZATRIPTAN BENZOAT (ODT) 10MG PO ONE (13:10)
[2017-03-19 13:56] VITALS: Ht 170.2 cm; Wt 54.0 kg
[2017-03-19 17:08] VITALS: BP 162/102
[2017-03-19] MEDS: PATIENT'S OWN MED SUBQ SCH (18:00)
[2017-03-19 18:49] VITALS: BP 112/96
[2017-03-19] MEDS: KCL/NS* 20 MEQ/1000 ML PREMIX 1,000 ML IV SCH (20:00)
[2017-03-19] MEDS: cefTRIAXone 1 GM VIAL IVP SCH (20:01)
[2017-03-19] MEDS ORDERED: ATORVASTATIN 40 MG TAB PO SCH (21:00)
[2017-03-19] MEDS: ZOLPIDEM TARTRATE 10 MG TAB PO SCH (21:10)
[2017-03-19] MEDS: ATORVASTATIN 40 MG TAB PO SCH (21:10)
[2017-03-19] MEDS: VERAPAMIL HCL SR 240 MG TABCR PO SCH (21:10)
[2017-03-19] MEDS: SERTRALINE HCL 50 MG TAB PO SCH (21:10)
[2017-03-19 23:18] VITALS: BP 124/79
[2017-03-20] VITALS (27 sets, daily range): BP systolic 111–191; BP diastolic 71–116
[2017-03-20] MEDS: ALBUTEROL/IPRATROPIUM 3 ML NEB NEB SCH ×3 (03:47→17:03)
[2017-03-20] MEDS ORDERED: PROMETHAZINE 25 MG/ML 1 ML AMP IVP ONE ×2 (04:45→06:35)
[2017-03-20] MEDS: PATIENT'S OWN MED PO SCH ×2 (04:56→17:09)
--- NOTE | 2017-03-20 05:07 | RADIOLOGY IMAGING REPORT ---
FACILITY: [facility] - [place] PATIENT NAME: Zurdo Munoz : 1945 MR: [id number] V: [id number] EXAM DATE: ORDERING PHYSICIAN: KIRK LA TECHNOLOGIST: Location: [facility] [place] Patient: Zurdo Munoz : 1945 Visit/Account:[id number] Date of Sevice: 03/20/2017 SINGLE AP RADIOGRAPH OF THE CHEST 03/20/2017 4:24 AM. INDICATION: Pneumonia. COMPARISON: 03/18/2017. FINDINGS/IMPRESSION: Bibasilar consolidation is likely increased, and there are likely bilateral smal l pleural effusions, worse on the left than on the prior examination. Extensive interstitial opacifi cation has increased, and could represent worsening atypical infection or edema. No pneumothorax. H eart size is likely normal Report Dictated By: Caesar Tian MD at 03/20/2017 4:59 AM Report E-Signed By: Caesar Tian MD at 03/20/2017 5:02 AM WSN:[id number]
[2017-03-20] MEDS ORDERED: FUROSEMIDE 20 MG/2 ML VIAL IVP ONE ×2 (05:40→14:50)
[2017-03-20] MEDS ORDERED: FUROSEMIDE 20 MG/2 ML VIAL ONE (05:42)
[2017-03-20] MEDS: ALPRAZolam 0.5 MG TAB PO PRN ×2 (05:45→18:34)
[2017-03-20 05:54] LABS: PLATELET COUNT, AUTOMATED 195 K/uL (150-450)
[2017-03-20] MEDS ORDERED: RIZATRIPTAN BENZOAT (ODT) 10MG PO PRN (05:55)
--- NOTE | 2017-03-20 06:12 | Hospitalist Progress Note ---
Subjective Progress Notes Subjective The patient states he is having back pain and this causes some nausea. He also has a headache again. Maxalt helped yesterday. His O2 requirements increased over night. Physical Exam Vital Signs Date Time Temp Pulse Resp B/P (MAP) Pulse Ox O2 Delivery O2 Flow Rate FiO2 03/20/17 05:25 89 Vapotherm 40.0 03/20/17 05:00 113 03/20/17 03:55 98.2 16 127/89 (102) General Appearance: Alert, Awake, Other (Mild to moderate respiratory distress. ) Neuro: No Gross deficits Eyes: PERRLA Cardiovascular: Regular Rate and Rhythm Respiratory: Other (Markedly decreased BS throughout.) GI: Soft and Non-Tender Extremities: Warm, Perfused Integumentary: Skin Intact without Lesion / Mass Psych: Appropriate Mood & Affect Result Diagram: 03/19/1716 03/19/1716 Assessment and Plan Problems: (1) CHF (congestive heart failure) Status: Acute Assessment & Plan: The patient has had increasing O2 requirements overnight. He is now on Vapo Therm. CXR this am shows CHF. He had been on IV fluids only at 50cc/hr. Will saline lock. Will give IV Lasix 20mg stat and if his BP tolerates this, consider placing nitropaste for unloading. EKG and troponin pending. BNP has been elevated. Unfortunately we can not get an echocardiogram until tomorrow as there is not a tech available that can do an echo. If he does not improve, he may need to be transferred so that he can have further evaluation. He sees the [facility]. He does want to be intubated if needed. (2) Pneumonia Status: Acute Assessment & Plan: It appears he may have an acute pneumonia with small pleural effusion. In reviewing his previous radiologic procedures, however, it appears he had some RLL infiltrate/scarring on a previous CT scan. Current CT scan shows bilateral pleural effusion, R>L with associated infiltrate versus atelectasis. He is on IV Rocephin and Doxycycline for coverage of a potential pneumonia. Will give him supplemental oxygen as needed. Cultures of blood are negative. Sputum culture is growing a gram negative danny. (3) Pleural effusion Status: Acute Assessment & Plan: See above. Will have ordered an echocardiogram as his BNP was quite elevated on admission and this could represent some CHF. As noted above, there is not an ocular care technician available this weekend. (4) Hypoxia Status: Acute Assessment & Plan: Due to pneumonia and COPD. It sounds like he has been borderline hypoxic for quite some time. Will give supplemental oxygen. (5) COPD (chronic obstructive pulmonary disease) Status: Chronic Assessment & Plan: Due to smoking. He has not really been on any specific treatment up to this point. Will place him on Duonebs tid here. (6) Osteoporosis Status: Chronic Assessment & Plan: Will continue his Forteo and Calcium/vitamin D. (7) Hypothyroidism Status: Chronic Assessment & Plan: He is currently on a regimen of L-thyroxine 0.075mg two tabs four days a week and one and one-half tabs three days a week. This would be very close to 0.137mg daily, so will make the switch to a little easier regimen to manage. Check TSH. (8) CAD (coronary artery disease) Status: Chronic Assessment & Plan: He has had previous stenting. Will continue his Plavix and atorvastatin. 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 He is on the Forteo and calcium. These also cause the chronic pain and he is treated with the Nucynta. (10) Chronic pain Status: Chronic Assessment & Plan: Continue Nucynta. Time Spent on Plan of Care: < 30 min Exam Sepsis Risk: No Definite Risk KIRK LA MD Mar 20, 2017 06:12
[2017-03-20] MEDS ORDERED: NITROGLYCERIN OINT 1 GM PKT TP ONE (06:20)
--- NOTE | 2017-03-20 06:36 | EKG ---
FACILITY: [facility] [place] PATIENT NAME: CHERELLE ROBLES : [id number] MR: [id number] V: [id number] EXAM DATE: ORDERING PHYSICIAN: KIRK AL TECHNOLOGIST: Test Reason : Blood Pressure : / mmHG Vent. Rate : 095 BPM Atrial Rate : 095 BPM P-R Int : 140 ms QRS Dur : 090 ms QT Int : 386 ms P-R-T Axes : 061 046 059 degrees QTc Int : 485 ms Normal sinus rhythm Prolonged QT Abnormal ECG When compared with ECG of 20-MAR-2017 05:59, No significant change was found Confirmed by KIRK BARAJAS ([id number]) on 03/20/2017 6:54:02 AM Referred By: Confirmed By:KIRK BARAJAS
[2017-03-20] MEDS: CLOPIDOGREL BISULFATE 75MG TAB PO SCH (08:21)
[2017-03-20] MEDS: EZETIMIBE 10 MG TAB PO SCH (08:21)
[2017-03-20] MEDS: POLYETHYLENE GLYCOL 17 GM PKT PO SCH (08:21)
[2017-03-20] MEDS: TAMSULOSIN HCL 0.4 MG CAP PO SCH (08:21)
[2017-03-20] MEDS: CALCIUM CARBONATE/VITAMIN D3 PO SCH ×2 (08:21→17:07)
[2017-03-20] MEDS: PANTOPRAZOLE SOD 40 MG TABEC PO SCH (08:21)
[2017-03-20] MEDS: LEVOTHYROXINE SOD 0.137 MG TAB PO SCH (08:21)
[2017-03-20] MEDS: ACETAMINOPHEN 500 MG TAB PO PRN ×2 (08:23→21:18)
[2017-03-20] MEDS: ENOXAPARIN 40 MG/0.4ML SYR SC SCH (08:35)
[2017-03-20] MEDS ORDERED: RIZATRIPTAN BENZOAT (ODT) 10MG PO ONE (09:15)
[2017-03-20] MEDS: DOXYCYCLINE HYCL 100 MG VIAL 100 MG in NS(*) 0.9% 250 ML BAG 250 ML IV SCH ×2 (09:43→21:18)
--- NOTE | 2017-03-20 10:56 | Miscellaneous Provider Note ---
Miscellaneous Provider Note Note The patient is not reporting worsening SOB. He has had about 1900cc of urine since the Lasix. He has nitropaste on. BP still mildly elevated. Still having nausea. Headache improving with the second dose of Maxalt. He is stable on the VapoTherm, but at the maximal settings. He will be moved to the ICU to watch closely. I feel that he is stable to stay and not be under the care of a cable ferry operator at this point, but I did offer to transfer him to his if she was uncomfortable with him staying. She reported being comfortable with him staying. We might use BIPAP if his work of breathing worsens or is difficult to oxygenate. However, right now, he gets vomiting symptoms so quickly, I am hesitant to place a tight mask on him. JANIE MUSE MD Mar 20, 2017 10:56
[2017-03-20] MEDS ORDERED: SALINE 0.65% NAS SPR 44 ML BTL PRN (13:15)
[2017-03-20] MEDS: SALINE NASAL GEL 14.1 GM TUBE PRN (14:27)
[2017-03-20] MEDS ORDERED: BISACODYL 10 MG SUPP PR PRN (14:45)
[2017-03-20] MEDS ORDERED: MAGNESIUM HYDROXIDE* 30ML UDCP PO PRN (14:45)
[2017-03-20] MEDS ORDERED: PATCH REMOVAL 1 EA TP ONE (16:40)
[2017-03-20] MEDS: PATIENT'S OWN MED SUBQ SCH (17:08)
[2017-03-20] MEDS: cefTRIAXone 1 GM VIAL IVP SCH (20:17)
[2017-03-20] MEDS: ZOLPIDEM TARTRATE 10 MG TAB PO SCH (21:18)
[2017-03-20] MEDS: ATORVASTATIN 40 MG TAB PO SCH (21:18)
[2017-03-20] MEDS: SERTRALINE HCL 50 MG TAB PO SCH (21:18)
[2017-03-20] MEDS: VERAPAMIL HCL SR 240 MG TABCR PO SCH (21:18)
[2017-03-21] VITALS (24 sets, daily range): BP systolic 100–148; BP diastolic 61–85
[2017-03-21] MEDS: ALPRAZolam 0.5 MG TAB PO PRN ×4 (01:13→20:32)
[2017-03-21] MEDS: PATIENT'S OWN MED PO PRN ×2 (01:13→07:21)
[2017-03-21] MEDS: ACETAMINOPHEN 500 MG TAB PO PRN (04:09)
[2017-03-21] MEDS: PATIENT'S OWN MED PO SCH ×2 (04:56→17:14)
[2017-03-21 05:22] LABS: PLATELET COUNT, AUTOMATED 144 K/uL (150-450)
[2017-03-21] MEDS: ALBUTEROL/IPRATROPIUM 3 ML NEB NEB SCH ×3 (05:23→17:57)
[2017-03-21] MEDS: LEVOTHYROXINE SOD 0.137 MG TAB PO SCH (06:04)
--- NOTE | 2017-03-21 06:21 | RADIOLOGY IMAGING REPORT ---
FACILITY: [facility] [place] PATIENT NAME: Zurdo Munoz : 1945 MR: [id number] V: [id number] EXAM DATE: ORDERING PHYSICIAN: JANIE MUSE TECHNOLOGIST: Location: [facility] [place] Patient: Zurdo Munoz : 1945 Visit/Account:[id number] Date of Sevice: 03/21/2017 PORTABLE CHEST: Indication: Dyspnea. Technique: A single frontal film was obtained. Comparison: 03/20/2017 Skeletal and soft tissue structures: Intact and unchanged. Heart and mediastinum: Stable. Lung vásquez: There are persistent diffuse and focal parenchymal opacities, without significant change . Pleural spaces: Bilateral small effusions present. There is no evidence of pneumothorax. Impression: No significant change in the lung vásquez. Report Dictated By: Car Ruff MD at 03/21/2017 6:14 AM Report E-Signed By: Car Ruff MD at 03/21/2017 6:16 AM WSN:[id number]
--- NOTE | 2017-03-21 08:41 | Hospitalist Progress Note ---
Subjective Progress Notes Subjective He reports some improvements in dyspnea and headache. Physical Exam Vital Signs Date Time Temp Pulse Resp B/P (MAP) Pulse Ox O2 Delivery O2 Flow Rate FiO2 03/21/17 06:07 85 03/21/17 06:00 16 138/82 (100) 91 Non-Rebreather 15.0 03/21/17 04:13 97.4 03/20/17 19:48 General Appearance: Alert, Awake Cardiovascular: Regular Rate and Rhythm (distant tones), No Edema Respiratory: Other (few rales at both bases/no wheezes) Chest: No Tenderness GI: Soft and Non-Tender : No CVA Tenderness Lymph: No Adenopathy Extremities: Warm, Perfused Integumentary: Skin Intact without Lesion / Mass Result Diagram: 03/21/1745403/21/17454 Item Value Date Time B-Type Natriuretic Peptide 1060 pg/ml H 03/21/17454 Troponin I 0.016 ng/ml 03/21/17454 Troponin I < 0.012 ng/ml 03/20/17 0510 Assessment and Plan Problems: (1) CHF (congestive heart failure) Status: Acute Assessment & Plan: The patient has had increasing O2 requirements. CXR yesterday showed pulmonary edema/CHF - this AM CXR does appear improved. He had been on IV fluids only at 50cc/hr - now saline locked. Given his history, would have to suspect ischemia as a cause, but his EKG and troponin unchanged acutely. It certainly is possible he has had events prior to this admission. BNP has been elevated. Echocardiogram done this AM - preliminary tech report shows EF in 47% range (66% on echo in 2012). Will stop the verapamil and start low dose metoprolol 12.5mg PO BID. Will try to continue some diuresis with Lasix 20mg IV daily. He has seen the [place] [facility] - will see if they can evaluate him on their next visit here. (2) Pneumonia Status: Acute Assessment & Plan: It appears he has an acute pneumonia with small pleural effusion. In reviewing his previous radiologic procedures, however, it appeared he had some RLL infiltrate/scarring on a CT scan. Current CT scan shows bilateral pleural effusion, R>L with associated infiltrate versus atelectasis. He is on IV Rocephin and Doxycycline for coverage of the potential pneumonia. Cultures of blood are negative. Sputum culture is growing Enterobacter cloacae complex, which is sensitive to the Rocephin. (3) Pleural effusion Status: Acute Assessment & Plan: See above. Probably due to the CHF and acute pneumonia. (4) Hypoxia Status: Acute Assessment & Plan: Due to pneumonia, CHF, and COPD. It sounds like he has been borderline hypoxic for quite some time. Will continue supplemental oxygen. (5) COPD (chronic obstructive pulmonary disease) Status: Chronic Assessment & Plan: Due to smoking. He has not really been on any specific treatment up to this point. He is currently on Duonebs TID. (6) Osteoporosis Status: Chronic Assessment & Plan: Will continue his Forteo and Calcium/vitamin D. (7) Hypothyroidism Status: Chronic Assessment & Plan: He was on a regimen of L-thyroxine 0.075mg two tabs four days a week and one and one-half tabs three days a week. This would be very close to 0.137mg daily, so will make the switch to a little easier regimen to manage. TSH pending. (8) CAD (coronary artery disease) Status: Chronic Assessment & Plan: He has had previous stenting. Will continue his Plavix and atorvastatin. 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 He is on the Forteo and calcium. These also cause the chronic pain and he is treated with the Nucynta. (10) Chronic pain Status: Chronic Assessment & Plan: Continue Nucynta. (11) Migraines Status: Chronic Assessment & Plan: He has been managed with Maxalt as an outpatient, which is probably not the best regimen given his history of vascular disease. Will stop it in favor of Excedrin 1-2 PO q6hrs prn migraine. Exam Sepsis Risk: No Definite Risk PANCHO LA MD Mar 21, 2017 08:41
--- NOTE | 2017-03-21 08:47 | Antimicrobial Stewardship ---
Antimicrobial Stewardship Service: Hospitalist Indications: CAP Start Date: Mar 18, 2017 Height (Calculated Centimeters: 170.960101 Weight (Calculated Kilograms): 60.781 Creatinine Cl On admission: 03/18/17: Scr = 1.2, today is 1 CrCL ~ 56mL/min Culture Results: Yes (Blood Cx x 2 NGTD, Sputum Culture positive - enterobacter cloacae -sens to Ceftriaxone) Recommendations re: Culture Continue Ceftriaxone 1g IV daily and doxycycline 100mg IV Q12H , today is day 4 of therapy Of note: in the ED pt received levofloxacin and zosyn x 1 Eligable for PO Conversion: No Comments Continue Ceftriaxone 1g IV daily and doxycycline 100mg IV Q12H , today is day 4 of therapy Of note: in the ED pt received levofloxacin and zosyn x 1 WILDA BUCIO Mar 21, 2017 08:47
[2017-03-21] MEDS ORDERED: FUROSEMIDE 20 MG/2 ML VIAL IVP SCH (09:00)
[2017-03-21] MEDS: POLYETHYLENE GLYCOL 17 GM PKT PO SCH ×2 (09:00→09:38)
[2017-03-21] MEDS: CALCIUM CARBONATE/VITAMIN D3 PO SCH ×2 (09:37→17:14)
[2017-03-21] MEDS: POTASSIUM CHL 10 MEQ TABCR PO SCH (09:38)
[2017-03-21] MEDS: EZETIMIBE 10 MG TAB PO SCH (09:38)
[2017-03-21] MEDS: PANTOPRAZOLE SOD 40 MG TABEC PO SCH (09:38)
[2017-03-21] MEDS: CLOPIDOGREL BISULFATE 75MG TAB PO SCH (09:38)
[2017-03-21] MEDS: TAMSULOSIN HCL 0.4 MG CAP PO SCH (09:38)
[2017-03-21] MEDS: METOPROLOL TART 50 MG TAB PO SCH ×2 (09:38→20:32)
[2017-03-21] MEDS: ENOXAPARIN 40 MG/0.4ML SYR SC SCH (09:39)
[2017-03-21] MEDS: DOXYCYCLINE HYCL 100 MG VIAL 100 MG in NS(*) 0.9% 250 ML BAG 250 ML IV SCH ×2 (09:39→20:32)
[2017-03-21] MEDS: ACETAM/ASA/CAFFEINE 250/250/65 PO PRN ×2 (12:49→18:23)
--- NOTE | 2017-03-21 14:05 | RADIOLOGY IMAGING REPORT ---
FACILITY: [facility] PATIENT NAME: CHERELLE ROBLES : [id number] MR: [id number] V: [id number] EXAM DATE: ORDERING PHYSICIAN: PANCHO LA TECHNOLOGIST: [place] EXAMINATION:TWO-DIMENSIONAL ECHOCARDIOGRAPH REASON:QUESTIONABLE HEART FAILURE. 2D Measurements (normal values in centimeters) LV endLV endRV endVent.LV PostAorticLeftPercent DiastolicSystolicDiastolicSeptumWallRootAtriumShortening (3.5-5.7)(0.9-2.6)(0.6-1.1)(0.6-1.1)(2.0-3.7)(1.9-4.0)(25-35%) [id number]% STROKE VOLUME: 57 mL ESTIMATED EJECTION FRACTION:47% PARASTERNAL LONG AXIS: Overall left ventricular systolic function and right ventricular function appear to be normal. There is mild concentric left ventricular thickening noted. No evidence for any outflow tract obstruction. Aortic valve was mildly sclerotic but does not appear to be stenotic. The mitral valve appears to open normally. The patient appears to be in sinus rhythm. The chamber sizes also appear to be normal. Color examination of the mitral valve reveals some mitral insufficiency. Color examination of the aortic valve was unremarkable. PARASTERNAL SHORT AXIS: Overall left ventricular function again appears to be normal. No specific wall motion abnormalities are noted. Maybe some mild hypokinesis but no akinesis is noted. The aortic valve is trileaflet in configuration and appears to open normally and is mildly sclerotic. Color examination reveals a trace to mild amount of pulmonic insufficiency. Color examination of the aortic valve was unremarkable. Color examination of the tricuspid valve revealed a mild amount of tricuspid insufficiency. APICAL FOUR AND TWO CHAMBER: Normal left ventricular ejection fraction. Mitral valve and aortic valve both appear to open normally. Color examination of the aortic valve was unremarkable. Color examination of the mitral valve reveals a trace amount of mitral insufficiency. Color examination of the tricuspid valve revealed a trace of tricuspid insufficiency. Aortic valve area was measured within normal range at 1.8 cm2, mitral valve area measured also within normal range at 2.8 cm2. Left atrial volume is moderately increased at 37 mL/m2. Right atrial volume is moderately increased at 35 mL/m2. The TAPSE is measured at 2.8 indicating normal right ventricular function. SUBCOSTAL VIEW: No pericardial effusion was noted. No atrial septal or ventricular septal defects were appreciated. Doppler examination of the mitral valve in diastole is normal. OVERALL IMPRESSION: 1. Left ventricular ejection fraction was mildly decreased at 47%. There is some mild hypokinesis but no akinesis of any of the segments is noted. There is a grade 1/4 decrease in diastolic function. 2. Right ventricle appears to contract normally and is normal in size. 3. There is mild concentric left ventricular thickening but no evidence for any outflow tract obstruction. 4. Trileaflet aortic valve with mild aortic sclerosis but no stenosis. 5. There is a mild amount of mitral, tricuspid and pulmonic insufficiency with right ventricular systolic pressures within normal range at 34 mmHg which does include an estimated right atrial pressure of 8 mmHg. 6. There is a moderate increase in the left atrial and right atrial volumes with the ventricles being normal in size. Dictated by: Skyla Dye M.D. on 03/21/2017 at 10:47 Transcribed by: TAMERA on 03/21/2017 at 13:40 Approved by: Skyla Dye M.D. on 03/21/2017 at 14:04 [facility]
[2017-03-21] MEDS: SALINE NASAL GEL 14.1 GM TUBE PRN (14:56)
[2017-03-21] MEDS: PATIENT'S OWN MED SUBQ SCH (17:13)
[2017-03-21] MEDS ORDERED: ACETAM/ASA/CAFFEINE 250/250/65 PO PRN (19:20)
[2017-03-21] MEDS: cefTRIAXone 1 GM VIAL IVP SCH (19:35)
[2017-03-21] MEDS: ATORVASTATIN 40 MG TAB PO SCH (20:32)
[2017-03-21] MEDS: SERTRALINE HCL 50 MG TAB PO SCH (20:33)
[2017-03-21] MEDS: ZOLPIDEM TARTRATE 10 MG TAB PO SCH (20:33)
[2017-03-22] VITALS (23 sets, daily range): BP systolic 84–146; BP diastolic 47–95
[2017-03-22] MEDS: PATIENT'S OWN MED PO PRN ×3 (01:03→23:30)
[2017-03-22] MEDS: LORazepam 2 MG/ML VIAL IVP PRN ×2 (03:16→13:46)
[2017-03-22] MEDS: ALBUTEROL/IPRATROPIUM 3 ML NEB NEB SCH ×3 (05:25→17:08)
[2017-03-22] MEDS: LEVOTHYROXINE SOD 0.137 MG TAB PO SCH (05:31)
[2017-03-22] MEDS: PATIENT'S OWN MED PO SCH ×3 (05:31→17:05)
--- NOTE | 2017-03-22 05:58 | RADIOLOGY IMAGING REPORT ---
FACILITY: [facility] PATIENT NAME: Zurdo Munoz : 1945 MR: [id number] V: [id number] EXAM DATE: ORDERING PHYSICIAN: PANCHO LA TECHNOLOGIST: Location: [facility] [place] Patient: Zurdo Munoz : 1945 Visit/Account:[id number] Date of Sevice: 03/22/2017 PORTABLE CHEST: Indication: Follow-up evaluation of CHF and pneumonia. Technique: A single frontal film was obtained. Comparison: 03/21/2017 Skeletal and soft tissue structures: Intact and unchanged. Heart and mediastinum: Stable. Lung vásquez: The interstitial markings appear unchanged. There are persistent opacities at both bases , with slight improvement on the left. Pleural spaces: The small right effusion is unchanged. The left effusion has appears improved. Impression: Slight interval improvement. Report Dictated By: Car Ruff MD at 03/22/2017 5:52 AM Report E-Signed By: Car Ruff MD at 03/22/2017 5:54 AM WSN:[id number]
[2017-03-22 06:04] LABS: PLATELET COUNT, AUTOMATED 137 K/uL (150-450)
--- NOTE | 2017-03-22 07:47 | Hospitalist Progress Note ---
Subjective Progress Notes Subjective The patient feels more comfortable today. His headache is better. Physical Exam Vital Signs Date Time Temp Pulse Resp B/P (MAP) Pulse Ox O2 Delivery O2 Flow Rate FiO2 03/22/17 06:00 69 14 135/72 (93) 93 Non-Rebreather 15.0 03/22/17 03:00 97.8 03/20/17 19:48 General Appearance: Alert, Awake, No Acute Distress, Afebrile Neuro: No Gross deficits Eyes: PERRLA Cardiovascular: Other (Heart tones very distant.) Respiratory: No Respiratory Distress, Other (Decreased BS. No wheezing.) GI: Soft and Non-Tender Extremities: Warm, Perfused, Other (No edema.) Integumentary: Skin Intact without Lesion / Mass Psych: Appropriate Mood & Affect Result Diagram: 03/22/1752603/22/17526 Assessment and Plan Problems: (1) CHF (congestive heart failure) Status: Acute Assessment & Plan: The patient had increasing O2 requirements. CXR showed pulmonary edema/CHF. He had been on IV fluids only at 50cc/hr. He was saline locked Given his history, would suspect ischemia as a cause, but his EKG and troponin unchanged. It certainly is possible he has had events prior to this admission. BNP had been elevated. Echocardiogram showed EF in 47% range (66% on echo in 2012). Verapamil DC'd and low dose metoprolol 12.5mg PO BID started. He improved with Lasix 20mg IV daily. Weight is down. Will transition to oral Lasix today. His BNP is down to 183 and CXR looks better. He has seen the [place] [facility] group. Dr. Beebe to see today for recommendations. (2) Pneumonia Status: Acute Assessment & Plan: It appears he has an acute pneumonia with small pleural effusion. In reviewing his previous radiologic procedures, however, it appeared he had some RLL infiltrate/scarring on a CT scan. Current CT scan shows bilateral pleural effusion, R>L with associated infiltrate versus atelectasis. He is on IV Rocephin and Doxycycline for coverage of the potential pneumonia. Cultures of blood are negative. Sputum culture is growing Enterobacter cloacae complex, which is sensitive to the Rocephin. (3) Pleural effusion Status: Acute Assessment & Plan: See above. Probably due to the CHF and acute pneumonia. (4) Hypoxia Status: Acute Assessment & Plan: Due to pneumonia, CHF, and COPD. It sounds like he has been borderline hypoxic for quite some time. Will continue supplemental oxygen. (5) COPD (chronic obstructive pulmonary disease) Status: Chronic Assessment & Plan: Due to smoking. He has not really been on any specific treatment up to this point. He is currently on Duonebs TID. (6) Osteoporosis Status: Chronic Assessment & Plan: Will continue his Forteo and Calcium/vitamin D. (7) Hypothyroidism Status: Chronic Assessment & Plan: He was on a regimen of L-thyroxine 0.075mg two tabs four days a week and one and one-half tabs three days a week. This would be very close to 0.137mg daily, so will make the switch to a little easier regimen to manage. TSH pending. (8) CAD (coronary artery disease) Status: Chronic Assessment & Plan: He has had previous stenting. Will continue his Plavix and atorvastatin. 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 He is on the Forteo and calcium. These also cause the chronic pain and he is treated with the Nucynta. (10) Chronic pain Status: Chronic Assessment & Plan: Continue Nucynta. (11) Migraines Status: Chronic Assessment & Plan: He has been managed with Maxalt as an outpatient, which is probably not the best regimen given his history of vascular disease. Will stop it in favor of Excedrin 1-2 PO q6hrs prn migraine. Time Spent on Plan of Care: < 30 min Exam Sepsis Risk: No Definite Risk KIRK LA MD Mar 22, 2017 07:47
[2017-03-22] MEDS: ALPRAZolam 0.5 MG TAB PO PRN ×3 (08:20→20:34)
[2017-03-22] MEDS: CALCIUM CARBONATE/VITAMIN D3 PO SCH ×2 (08:20→17:05)
[2017-03-22] MEDS: EZETIMIBE 10 MG TAB PO SCH (08:21)
[2017-03-22] MEDS: CLOPIDOGREL BISULFATE 75MG TAB PO SCH (08:22)
[2017-03-22] MEDS: TAMSULOSIN HCL 0.4 MG CAP PO SCH (08:22)
[2017-03-22] MEDS: METOPROLOL TART 50 MG TAB PO SCH ×2 (08:24→20:34)
[2017-03-22] MEDS: PANTOPRAZOLE SOD 40 MG TABEC PO SCH (08:26)
[2017-03-22] MEDS: POTASSIUM CHL 10 MEQ TABCR PO SCH (08:28)
[2017-03-22] MEDS: ENOXAPARIN 40 MG/0.4ML SYR SC SCH (08:29)
[2017-03-22] MEDS: POLYETHYLENE GLYCOL 17 GM PKT PO SCH (08:30)
[2017-03-22] MEDS: DOXYCYCLINE HYCL 100 MG VIAL 100 MG in NS(*) 0.9% 250 ML BAG 250 ML IV SCH ×2 (08:43→20:34)
[2017-03-22] MEDS ORDERED: INFLUENZA VIRUS VAC 0.5 ML SYR IM ONLY ONE (09:00)
[2017-03-22] MEDS ORDERED: FUROSEMIDE 20 MG TAB PO SCH (09:00)
[2017-03-22] MEDS: PATIENT'S OWN MED SUBQ SCH (17:06)
[2017-03-22] MEDS: cefTRIAXone 1 GM VIAL IVP SCH (20:33)
[2017-03-22] MEDS: ZOLPIDEM TARTRATE 10 MG TAB PO SCH (20:34)
[2017-03-22] MEDS: SERTRALINE HCL 50 MG TAB PO SCH (20:34)
[2017-03-22] MEDS: ATORVASTATIN 40 MG TAB PO SCH (20:34)
[2017-03-22] MEDS ORDERED: NS(*) 0.9% 250 ML BAG 250 ML ONE (20:52)
[2017-03-22] MEDS ORDERED: PROMETHAZINE 25 MG/ML 1 ML AMP ONE (21:04)
[2017-03-22] MEDS ORDERED: PROMETHAZINE 25 MG/ML 1 ML AMP IVP ONE (21:05)
[2017-03-23] VITALS (15 sets, daily range): BP systolic 95–137; BP diastolic 55–100
[2017-03-23] MEDS: LEVOTHYROXINE SOD 0.137 MG TAB PO SCH (05:17)
[2017-03-23] MEDS: PATIENT'S OWN MED PO SCH ×2 (05:17→17:16)
[2017-03-23] MEDS: ALBUTEROL/IPRATROPIUM 3 ML NEB NEB SCH ×3 (05:32→17:18)
[2017-03-23 05:37] LABS: PLATELET COUNT, AUTOMATED 142 K/uL (150-450)
--- NOTE | 2017-03-23 05:42 | RADIOLOGY IMAGING REPORT ---
FACILITY: [facility] PATIENT NAME: Zurdo Munoz : 1945 MR: [id number] V: [id number] EXAM DATE: ORDERING PHYSICIAN: KIRK LA TECHNOLOGIST: [facility] Patient: Zurdo Munoz : 1945 Visit/Account:[id number] Date of Sevice: 03/23/2017 SINGLE AP RADIOGRAPH OF THE CHEST 03/23/2017 6:00 AM. INDICATION: CHF/pneumonia. COMPARISON: 03/18/2017. FINDINGS/IMPRESSION: Right basilar consolidation/atelectasis and pleural effusion have increased. Le ft base aeration is improved. Extensive bilateral interstitial prominence is similar to prior. No p neumothorax. Heart size is normal. Report Dictated By: Caesar Tian MD at 03/23/2017 5:36 AM Report E-Signed By: Caesar Tian MD at 03/23/2017 5:37 AM WSN:[id number]
[2017-03-23] MEDS: FUROSEMIDE 40 MG TAB PO SCH (08:30)
[2017-03-23] MEDS: TAMSULOSIN HCL 0.4 MG CAP PO SCH (08:30)
[2017-03-23] MEDS: POLYETHYLENE GLYCOL 17 GM PKT PO SCH (08:30)
[2017-03-23] MEDS: CALCIUM CARBONATE/VITAMIN D3 PO SCH ×2 (08:30→17:15)
[2017-03-23] MEDS: ALPRAZolam 0.5 MG TAB PO PRN ×3 (08:30→20:17)
[2017-03-23] MEDS: ENOXAPARIN 40 MG/0.4ML SYR SC SCH (08:30)
[2017-03-23] MEDS: CEFDINIR 300 MG CAP PO SCH ×2 (08:30→20:18)
[2017-03-23] MEDS: POTASSIUM CHL 10 MEQ TABCR PO SCH (08:30)
[2017-03-23] MEDS: EZETIMIBE 10 MG TAB PO SCH (08:30)
[2017-03-23] MEDS: CLOPIDOGREL BISULFATE 75MG TAB PO SCH (08:30)
[2017-03-23] MEDS: METOPROLOL TART 50 MG TAB PO SCH ×2 (08:30→20:18)
[2017-03-23] MEDS: PANTOPRAZOLE SOD 40 MG TABEC PO SCH (08:30)
[2017-03-23] MEDS ORDERED: SPIRONOLACTONE 25 MG TAB PO SCH (09:00)
[2017-03-23] MEDS: ACETAM/ASA/CAFFEINE 250/250/65 PO PRN ×2 (09:46→14:34)
--- NOTE | 2017-03-23 10:32 | Hospitalist Progress Note ---
Subjective Progress Notes Subjective This patient was admitted for pneumonia and heart failure. He had no acute changes overnight. Patient Complains of: Cardiovascular: No: Chest Pain Respiratory: No: Shortness of Breath Physical Exam Vital Signs Date Time Temp Pulse Resp B/P (MAP) Pulse Ox O2 Delivery O2 Flow Rate FiO2 03/23/17 09:51 79 03/23/17 08:02 91 High-Flow Nasal Cannula 12.0 03/23/17 07:00 15 119/70 (86) 03/23/17 04:00 98.3 03/20/17 19:48 Neuro: No Gross deficits Eyes: PERRLA Cardiovascular: Regular Rate and Rhythm Respiratory: Other (Bilateral crackles.) Extremities: No Edema Integumentary: No Cyanosis Result Diagram: 03/23/17 0503/23/17 05 Imaging Chest x-ray reviewed. Assessment and Plan Problems: (1) Acute systolic (congestive) heart failure Assessment & Plan: He did develop increased oxygen requirements and his chest x -ray showed bilateral pleural effusions with increased vascular marking. His BNP was also elevated. An echocardiogram has shown an ejection fraction of 47% . He has been treated with Lasix and his weights have been improving. He was also converted from verapamil to metoprolol. We did increase his Lasix dose today. We have also added spironolactone. He was evaluated by cardiology, and they have placed recommendations in his chart. (2) Bacterial pneumonia Assessment & Plan: His chest x-ray has shown an infiltrate in the right lower lung. This has become more prominent since we have been able to decrease his effusions, but he is clinically improving. He has been on empiric treatment with ceftriaxone and doxycycline. His sputum culture did show growth with Enterobacter. We have narrowed his antibiotics to oral cefdinir. (3) Acute respiratory failure Assessment & Plan: He has had increased oxygen requirements, and has required treatment with Vapotherm and BiPAP. He has now weaned down to a nasal canula. We will try to decrease his requirements through today. (4) COPD (chronic obstructive pulmonary disease) Status: Chronic Assessment & Plan: He received a dose of IV steroids in the emergency department, but since then has only needed scheduled nebulizer treatments. (5) CAD (coronary artery disease) Status: Chronic Assessment & Plan: He is on chronic treatment with Plavix and atorvastatin. An EKG was unchanged and his troponin series was negative. (6) Osteoporotic compression fracture of spine Status: Chronic Assessment & Plan: Due to his osteoporosis. He is on the Forteo and calcium. These also cause the chronic pain and he is treated with the Nucynta. (7) Chronic pain Status: Chronic Assessment & Plan: Continue Nucynta. (8) Migraines Status: Chronic Assessment & Plan: He has been managed with Maxalt as an outpatient, which is probably not the best regimen given his history of vascular disease. We have discontinued the Maxalt and placed him on Excedrin as needed. (9) Osteoporosis Status: Chronic Assessment & Plan: Will continue his Forteo and Calcium/vitamin D. (10) Hypothyroidism Status: Chronic Assessment & Plan: He was on a regimen of L-thyroxine 0.075mg two tabs four days a week and one and one-half tabs three days a week. This would be very close to 0.137mg daily, so will make the switch to a little easier regimen to manage. A TSH was normal. Exam Sepsis Risk: No Definite Risk MORGAN SHELDON DO Mar 23, 2017 10:31
[2017-03-23] MEDS: PATIENT'S OWN MED PO PRN ×2 (11:13→20:19)
[2017-03-23] MEDS: HYDROCORTISONE 1% CR 28.35 GM TP SCH ×2 (15:33→20:18)
[2017-03-23] MEDS: PATIENT'S OWN MED SUBQ SCH (17:00)
[2017-03-23] MEDS ORDERED: MAGIC MOUTHWASH 90 ML BTL PO PRN (18:55)
[2017-03-23] MEDS: SERTRALINE HCL 50 MG TAB PO SCH (20:17)
[2017-03-23] MEDS: ZOLPIDEM TARTRATE 10 MG TAB PO SCH (20:18)
[2017-03-23] MEDS: ACETAMINOPHEN 500 MG TAB PO PRN (20:19)
[2017-03-23] MEDS: ATORVASTATIN 40 MG TAB PO SCH (20:22)
[2017-03-24 00:22] VITALS: BP 126/77
[2017-03-24] MEDS: ALBUTEROL/IPRATROPIUM 3 ML NEB NEB SCH ×3 (05:06→17:06)
[2017-03-24] MEDS: PATIENT'S OWN MED PO SCH ×2 (05:25→17:43)
[2017-03-24 05:40] LABS: PLATELET COUNT, AUTOMATED 150 K/uL (150-450)
[2017-03-24] MEDS: LEVOTHYROXINE SOD 0.137 MG TAB PO SCH (05:53)
[2017-03-24] MEDS: ALPRAZolam 0.5 MG TAB PO PRN ×3 (05:53→21:18)
[2017-03-24] MEDS: ACETAMINOPHEN 500 MG TAB PO PRN (05:53)
--- NOTE | 2017-03-24 06:26 | RADIOLOGY IMAGING REPORT ---
FACILITY: [facility] [place] PATIENT NAME: Zurdo Munoz : 1945 MR: [id number] V: [id number] EXAM DATE: ORDERING PHYSICIAN: MORGAN SHELDON TECHNOLOGIST: [facility] Patient: Zurdo Munoz : 1945 Visit/Account:[id number] Date of Sevice: 03/24/2017 PORTABLE CHEST: Indication: Follow-up evaluation of pneumonia. Technique: A single frontal film was obtained. Comparison: 03/23/2017 Skeletal and soft tissue structures: Intact and unchanged. Heart and mediastinum: Within normal limits. Lung vásquez: There has been partial clearing of the right basilar consolidation. No new focal parench ymal opacities are identified. Pleural spaces: The right effusion is significantly smaller. There is no left effusion. Impression: Significant interval improvement of the right basilar parenchymal consolidation and pleur al effusion. Report Dictated By: Car Ruff MD at 03/24/2017 6:21 AM Report E-Signed By: Car Ruff MD at 03/24/2017 6:23 AM WSN:[id number]
[2017-03-24 08:01] VITALS: BP 105/76
[2017-03-24] MEDS: CALCIUM CARBONATE/VITAMIN D3 PO SCH ×2 (08:28→17:42)
[2017-03-24] MEDS: FUROSEMIDE 40 MG TAB PO SCH (08:28)
[2017-03-24] MEDS: TAMSULOSIN HCL 0.4 MG CAP PO SCH (08:28)
[2017-03-24] MEDS: CLOPIDOGREL BISULFATE 75MG TAB PO SCH (08:28)
[2017-03-24] MEDS: EZETIMIBE 10 MG TAB PO SCH (08:28)
[2017-03-24] MEDS: CEFDINIR 300 MG CAP PO SCH ×2 (08:28→21:18)
[2017-03-24] MEDS: POTASSIUM CHL 10 MEQ TABCR PO SCH (08:29)
[2017-03-24] MEDS: PANTOPRAZOLE SOD 40 MG TABEC PO SCH (08:29)
[2017-03-24] MEDS: ACETAM/ASA/CAFFEINE 250/250/65 PO PRN ×2 (08:29→19:16)
[2017-03-24] MEDS: HYDROCORTISONE 1% CR 28.35 GM TP SCH ×2 (08:30→21:19)
[2017-03-24] MEDS: POLYETHYLENE GLYCOL 17 GM PKT PO SCH (08:36)
[2017-03-24] MEDS: ENOXAPARIN 40 MG/0.4ML SYR SC SCH (08:38)
[2017-03-24] MEDS: METOPROLOL SUCC XL 25 MG TABCR PO SCH (10:17)
[2017-03-24 11:40] VITALS: BP 145/84
[2017-03-24] MEDS: PATIENT'S OWN MED PO PRN ×2 (12:35→21:19)
--- NOTE | 2017-03-24 13:04 | Medical Nutrition Therapy ---
Nutrition Anthropometrics Height (Inches): 67.00 Height (Calculated Centimeters: 170.792571 Weight (Pounds): 119 Weight (Calculated Kilograms): 54.204 BMI Calculated: 20.36 Tommy Nutrition Score: Adequate Tommy Nutrition Risk Score: 19 Dietary Referral Nutrition Risk Factors: Nutrition Risk Comment: Physical Findings Physical Appearance: Underweight BMI<19 (18.7) Skin Appearance Skin Appearance: Edema Edema Location Modifier: Edema Location: Type of Edema: Degree of Edema: Gastrointestinal Symptoms GI Symtoms: Nausea Tube Present: Bowel Sounds: Recent Bowel Pattern: Stool Characteristics: Nutritional Diagnosis Nutritional Risk Acuity 2: CHF w/Complication Nutritional Risk Acuity 3: COPD Unstable Nutritional Risk Acuity 4: Good Appetite Past Medical History: osteoporosis, hypothyroidism, TIA, CAD, COPD Nutritional Acuity: 2-Moderate Nutrition Diagnosis: Decreased Nutrient Needs Nutrition Etiology: Physiological Causes Nutrition Problem/Etiology/Sym: Decreased Na/fluid needs r/t CHF dx AEB pulmonary edema Energy Requirement: 1650 ([place] St Jeor) Protein Requirement: 60 (1.1 g/kg) Fluid Requirement: 1630 (30 ml/kg) Diet Type: Diet as Tolerated SCOTTY/REG Nutrition Intervention: Cont diet as ordered, Encourage intake Drug: Diuretics Drug/Nutrition Recommendations: Patient Taking K+ Diet Comment To [facility]: PLEASE OFFER NUTR SUPPLEMENT Nutrition Monitoring & Eval RD Patient Assessment Time: [address] Assessment Type: RD Assessment Patient Nutrition Acuity: 2-Moderate Follow Up Date: Mar 26, 2017 Nutritional Comment: Pt admitted for Pneumonia and Pleural effusion. Within normal wt limits wt BMI of 20.4. Low H/H, Alb 2.6, Glu 111, Low Ca. Receiving SCOTTY and consumed 100% of first meal in facility. Follow labs, etc. 03/23 Pt chest xray shows pulmonary edema/CHF. Pt given K+ depleting diuretic and KCl. K+ WNL. Pt now weighs 119# which is a 15# wt loss in 2 days. BMI 18.7. Notable labs include low H/H, glu 72, total pro 5.3, and alb 2.4. Pt averaging 70% intake of small to reg portions. Will offer nutr supplement and continue to monitor wt, labs, intakes, etc. KATELYNN DOHERTY Mar 23, 2017 09:42
[2017-03-24] MEDS ORDERED: FUROSEMIDE 20 MG TAB PO ONE (14:05)
[2017-03-24] MEDS ORDERED: SPIRONOLACTONE 25 MG TAB PO ONE (14:05)
--- NOTE | 2017-03-24 14:13 | Hospitalist Progress Note ---
Subjective Progress Notes Subjective Overall, feeling better. Less SOB. O2 requirement decreasing. Physical Exam Vital Signs Date Time Temp Pulse Resp B/P (MAP) Pulse Ox O2 Delivery O2 Flow Rate FiO2 03/24/17 11:40 98.4 80 20 145/84 (104) 91 High-Flow Nasal Cannula 6.0 03/20/17 19:48 Intake and Output 03/25/17 07:00 Intake Total 620 ml Balance 620 ml Intake Oral 620 ml General Appearance: Alert, Awake, No Acute Distress Respiratory: Clear to Auscultation Extremities: No Edema Result Diagram: 03/24/1753003/24/17530 Assessment and Plan Problems: (1) Acute systolic (congestive) heart failure Assessment & Plan: he patient had increasing O2 requirements. CXR showed pulmonary edema/CHF. He had been on IV fluids only at 50cc/hr. He was saline locked Given his history, would suspect ischemia as a cause, but his EKG and troponin unchanged. It certainly is possible he has had events prior to this admission. BNP had been elevated. Echocardiogram showed EF in 47% range (66% on echo in 2012). Verapamil DC'd and low dose metoprolol 25 daily started. He improved with Lasix 20mg IV daily. Weight is down. Now on Lasix 40mg po daily and spironolactone 25mg daily.CXR looks better. O2 requirement decreasing. He was evaluated by cardiology, and they have placed recommendations in his chart. (2) Bacterial pneumonia Assessment & Plan: His chest x-ray has shown an infiltrate in the right lower lung. This has become more prominent since we have been able to decrease his effusions, but he is clinically improving. He has been on empiric treatment with ceftriaxone and doxycycline. His sputum culture did show growth with Enterobacter. We have narrowed his antibiotics to oral cefdinir. (3) Acute respiratory failure Status: Resolved Assessment & Plan: He has had increased oxygen requirements, and has required treatment with Vapotherm and BiPAP. He has now weaned down to a nasal canula. We will try to decrease his requirements through today. (4) COPD (chronic obstructive pulmonary disease) Status: Chronic Assessment & Plan: He received a dose of IV steroids in the emergency department, but since then has only needed scheduled nebulizer treatments. (5) CAD (coronary artery disease) Status: Chronic Assessment & Plan: He is on chronic treatment with Plavix and atorvastatin. An EKG was unchanged and his troponin series was negative. (6) Osteoporotic compression fracture of spine Status: Chronic Assessment & Plan: Due to his osteoporosis. He is on the Forteo and calcium. These also cause the chronic pain and he is treated with the Nucynta. (7) Chronic pain Status: Chronic Assessment & Plan: Continue Nucynta. (8) Migraines Status: Chronic Assessment & Plan: He has been managed with Maxalt as an outpatient, which is probably not the best regimen given his history of vascular disease. We have discontinued the Maxalt and placed him on Excedrin as needed. (9) Osteoporosis Status: Chronic Assessment & Plan: Will continue his Forteo and Calcium/vitamin D. (10) Hypothyroidism Status: Chronic Assessment & Plan: He was on a regimen of L-thyroxine 0.075mg two tabs four days a week and one and one-half tabs three days a week. This would be very close to 0.137mg daily, so will make the switch to a little easier regimen to manage. A TSH was normal. Exam Sepsis Risk: No Definite Risk JANIE MUSE MD Mar 24, 2017 14:13
[2017-03-24] MEDS: PATIENT'S OWN MED SUBQ SCH (17:44)
[2017-03-24 19:09] VITALS: BP 123/83
[2017-03-24] MEDS ORDERED: METOPROLOL TART 50 MG TAB PO SCH (21:00)
[2017-03-24] MEDS: ATORVASTATIN 40 MG TAB PO SCH (21:17)
[2017-03-24] MEDS: SERTRALINE HCL 50 MG TAB PO SCH (21:18)
[2017-03-24] MEDS: ZOLPIDEM TARTRATE 10 MG TAB PO SCH (21:18)
[2017-03-24] MEDS: PROMETHAZINE 25 MG/ML 1 ML AMP IVP PRN (21:37)
[2017-03-25 03:11] VITALS: BP 122/83
[2017-03-25] MEDS: ALBUTEROL/IPRATROPIUM 3 ML NEB NEB SCH ×2 (05:01→11:37)
[2017-03-25] MEDS: PROMETHAZINE 25 MG/ML 1 ML AMP IVP PRN (05:31)
[2017-03-25] MEDS: ALPRAZolam 0.5 MG TAB PO PRN (05:47)
[2017-03-25] MEDS: PATIENT'S OWN MED PO SCH (05:48)
[2017-03-25] MEDS: ACETAM/ASA/CAFFEINE 250/250/65 PO PRN (05:48)
[2017-03-25] MEDS: LEVOTHYROXINE SOD 0.137 MG TAB PO SCH (05:49)
[2017-03-25 06:04] LABS: PLATELET COUNT, AUTOMATED 189 K/uL (150-450)
--- NOTE | 2017-03-25 06:05 | RADIOLOGY IMAGING REPORT ---
FACILITY: [facility] [place] PATIENT NAME: Zurdo Munoz : 1945 MR: [id number] V: [id number] EXAM DATE: ORDERING PHYSICIAN: JANIE MUSE TECHNOLOGIST: Location: [facility] [place] Patient: Zurdo Mnuoz : 1945 Visit/Account:[id number] Date of Sevice: 03/25/2017 PORTABLE CHEST: Indication: Follow-up evaluation of pneumonia. Technique: A single frontal film was obtained. Comparison: 03/24/2017 Skeletal and soft tissue structures: Intact and unchanged. Heart and mediastinum: Within normal limits. Lung vásquez: There has been further clearing of the right basilar opacity. No new focal parenchymal o pacities are identified. Pleural spaces: No definite evidence of effusion. Impression: Further interval improvement. Report Dictated By: Car Ruff MD at 03/25/2017 6:00 AM Report E-Signed By: Car Ruff MD at 03/25/2017 6:01 AM WSN:[id number]
[2017-03-25 08:16] VITALS: BP 146/93
[2017-03-25] MEDS: POTASSIUM CHL 10 MEQ TABCR PO SCH (08:22)
[2017-03-25] MEDS: PANTOPRAZOLE SOD 40 MG TABEC PO SCH (08:22)
[2017-03-25] MEDS: EZETIMIBE 10 MG TAB PO SCH (08:22)
[2017-03-25] MEDS: CEFDINIR 300 MG CAP PO SCH (08:22)
[2017-03-25] MEDS: TAMSULOSIN HCL 0.4 MG CAP PO SCH (08:23)
[2017-03-25] MEDS: CALCIUM CARBONATE/VITAMIN D3 PO SCH (08:23)
[2017-03-25] MEDS: METOPROLOL SUCC XL 25 MG TABCR PO SCH (08:23)
[2017-03-25] MEDS: CLOPIDOGREL BISULFATE 75MG TAB PO SCH (08:23)
[2017-03-25] MEDS: HYDROCORTISONE 1% CR 28.35 GM TP SCH (08:23)
[2017-03-25] MEDS: ENOXAPARIN 40 MG/0.4ML SYR SC SCH (08:24)
[2017-03-25] MEDS: POLYETHYLENE GLYCOL 17 GM PKT PO SCH (08:24)
[2017-03-25] MEDS ORDERED: SPIRONOLACTONE 25 MG TAB PO SCH (09:00)
[2017-03-25] MEDS ORDERED: FUROSEMIDE 40 MG TAB PO SCH (09:00)
[2017-03-25] MEDS: PATIENT'S OWN MED PO PRN (09:54)
[2017-03-25] MEDS ORDERED: CEF300 PO (11:33)
--- NOTE | 2017-03-25 14:15 | Hospitalist Depart ---
Discharge Summary Reason for Hosp/Final Diag: (1) Bacterial pneumonia Status: Acute Hospital Course & Plan: His chest x-ray has shown an infiltrate in the right lower lung. This has become more prominent since we have been able to decrease his effusions, but he is clinically improving. He has been on empiric treatment with ceftriaxone and doxycycline. His sputum culture did show growth with Enterobacter. We have narrowed his antibiotics to oral cefdinir. 03/25: Mr. Munoz is a72yo male with extensive PMHx including CAD s/p stent, TIA, osteoporosis with multiple spine compression fractures, chronic pain, COPD, watermaster cigarette smoking. He reports increasing dyspnea, cough over past few months. He reports very little sputum production. No obvious fevers/chills. He has had some decreased appetite in past, but reports this has been improved. His weight has actually increased since last summer. He denies any CP or palpitations. He does report some orthopnea type symptoms. He was evaluate din the ER and found to have RLL infiltrate and pleural effusion on CXR. His BNP was also elevated at 1400. His troponin was negative and d-dimer was in normal range. His WBC count is in normal range. He was recommended for admission. He received Rocephin and Doxycycline and currently on Cefdinir 300mg bid. He is afebrile and his WBC are normal. He is anxious to go home and he is being d/c'd home today and f/u with his PCP, Dr. Shukla (2) Acute systolic (congestive) heart failure Status: Resolved Hospital Course & Plan: The patient had increasing O2 requirements. CXR showed pulmonary edema/CHF. He had been on IV fluids only at 50cc/hr. He was saline locked Given his history, would suspect ischemia as a cause, but his EKG and troponin unchanged. It certainly is possible he has had events prior to this admission. BNP had been elevated. Echocardiogram showed EF in 47% range (66% on echo in 2012). Verapamil DC'd and low dose metoprolol 25 daily started. He improved with Lasix 20mg IV daily. Weight is down. Now on Lasix 40mg po daily and spironolactone 25mg daily.CXR looks better. O2 requirement decreasing. He was evaluated by cardiology, and they have placed recommendations in his chart. 03/25: He is feeling better after receiving doses of Lasix for his pulmonary edema. (3) Acute respiratory failure Status: Resolved Hospital Course & Plan: He has had increased oxygen requirements, and has required treatment with Vapotherm and BiPAP. He has now weaned down to a nasal canula. We will try to decrease his requirements through today. (4) COPD (chronic obstructive pulmonary disease) Status: Chronic Hospital Course & Plan: He received a dose of IV steroids in the emergency department, but since then has only needed scheduled nebulizer treatments. (5) CAD (coronary artery disease) Status: Chronic Hospital Course & Plan: He is on chronic treatment with Plavix and atorvastatin. An EKG was unchanged and his troponin series was negative. (6) Osteoporotic compression fracture of spine Status: Chronic Hospital Course & Plan: Due to his osteoporosis. He is on the Forteo and calcium. These also cause the chronic pain and he is treated with the Nucynta. (7) Chronic pain Status: Chronic Hospital Course & Plan: Continue Nucynta. (8) Migraines Status: Chronic Hospital Course & Plan: He has been managed with Maxalt as an outpatient, which is probably not the best regimen given his history of vascular disease. We have discontinued the Maxalt and placed him on Excedrin as needed. (9) Osteoporosis Status: Chronic Hospital Course & Plan: Will continue his Forteo and Calcium/vitamin D. (10) Hypothyroidism Status: Chronic Hospital Course & Plan: He was on a regimen of L-thyroxine 0.075mg two tabs four days a week and one and one-half tabs three days a week. This would be very close to 0.137mg daily, so will make the switch to a little easier regimen to manage. A TSH was normal. Departure Weight (Pounds): 119 Weight (Ounces): 6.0 Result Diagram: 03/25/1751403/25/17514 Condition: Improved Discharge: Home Health Time Spent: < 30 min Discharge Instructions Home Meds Active Scripts Cefdinir 300 Mg Cap (OMNICEF 300 MG CAP (OR EQUIV)) 300 Mg Cap, 300 MG PO BID for 3 Days, #6 CAP Prov:IVETTE HONG MD 03/25/17 Verapamil Hcl (VERAPAMIL ER) 240 Mg Cap24h.pel, 1 CAP PO QDAY, #60 CAP Prov:MARKO MEZA MD 02/25/17 Alprazolam (XANAX) 0.5 Mg Tablet, 2 TAB PO TID Y for ANXIETY, #60 TAB Prov:MARKO MEZA MD 01/25/17 Ondansetron Hcl (ZOFRAN) 4 Mg Tablet, 1 TAB PO Q4H Y for NAUSEA, #30 TAB 3 Refills Prov:MARKO MEZA MD 01/03/17 Tamsulosin Hcl (TAMSULOSIN HCL) 0.4 Mg Cap.er.24h, 1 CAP PO DAILY, #90 CAP 4 Refills Prov:MARKO MEZA MD 01/03/17 Sertraline Hcl (SERTRALINE HCL) 100 Mg Tablet, 1.5 TAB PO HS, #90 TAB 4 Refills Prov:MARKO MEZA MD 01/03/17 Clopidogrel Bisulfate (PLAVIX) 75 Mg Tablet, 1 TAB PO QDAY, #90 TAB 4 Refills Prov:MARKO MEZA MD 01/03/17 Rizatriptan Benzoate (MAXALT) 10 Mg Tablet, 1 TAB PO PRN for HEADACHE, #30 TAB 3 Refills Prov:MARKO MEZA MD 01/03/17 Ezetimibe (ZETIA) 10 Mg Tablet, 1 TAB PO QDAY, #90 TAB 2 Refills Prov:MARKO MEZA MD 10/14/16 Reported Medications Fludrocortisone Acetate (FLUDROCORTISONE ACETATE) 0.1 Mg Tablet, 0.1 MG PO QHS 03/18/17 Varenicline Tartrate (CHANTIX) 0.5 Mg Tab, 1 MG PO BID, TAB 03/18/17 Omeprazole (OMEPRAZOLE) 40 Mg Capsule.dr, 40 MG PO DAILY, CAP take 30min before dinner 03/18/17 Tapentadol Hcl (NUCYNTA) 75 Mg Tablet, 75 MG PO Q6H Y for PAIN 03/18/17 Levothyroxine Sodium (LEVOTHYROXINE SODIUM) 75 Mcg Tablet, 75 MCG PO QDAY, TAB take 1and 1/2 tab daily 03/18/17 Atorvastatin Calcium (ATORVASTATIN CALCIUM) 40 Mg Tablet, 1 TAB PO QHS, TAB 03/18/17 Tizanidine Hcl (TIZANIDINE HCL) 4 Mg Capsule, 4 MG PO TID, CAPSULE 03/18/17 Zolpidem Tartrate (AMBIEN) 10 Mg Tablet, 1 TAB PO QHS, TAB 11/03/16 Tens Units (TENS 504) 1 Each Each, EACH MC 11/03/16 Tapentadol Hcl (NUCYNTA) 100 Mg Tablet, 200 MG PO BID May take 75 mg for breakthrough pain 11/03/16 Polyethylene Glycol 3350 (MIRALAX) 119 Gm Powder, 119 GM PO BID 11/03/16 Magnesium Hydroxide (MILK OF MAGNESIA) Unknown Strength Oral.susp, PO, BOTTLE 11/03/16 Teriparatide (Forteo) 20 Mcg/Dose (600 Mcg/2.4 Ml) Pen.injctr, DAILY 11/03/16 Calcium Carb & Cit/Vitamin D3 (CALCIUM + D3 ER TABLET) 1 Each Tablet.er, 1 TAB PO DAILY 11/03/16 Discontinued Reported Medications Omeprazole Magnesium (PRILOSEC OTC) 20 Mg Tablet.dr, 1 TAB PO QDAY, TAB 11/03/16 Carbidopa/Levodopa (CARBIDOPA-LEVO 25-100 MG ODT) 1 Each Tab.rapdis, 1 EACH PO BID 03/18/17 Gabapentin (GABAPENTIN) 300 Mg Capsule, 300 MG PO BID, CAPSULE 11/03/16 Carisoprodol (CARISOPRODOL) 350 Mg Tablet, 350 MG PO DAILY, TAB 11/03/16 Aspirin (ASPIRIN) Unknown Strength Tablet, PO DAILY, TAB 11/03/16 Ezetimibe (ZETIA) 10 Mg Tablet, 10 MG PO QDAY, TAB 03/18/17 Levothyroxine Sodium (LEVOTHYROXINE SODIUM) 100 Mcg Tablet, 125 MCG PO QDAY, TAB 03/18/17 Discontinued Scripts Levothyroxine Sodium (LEVOTHYROXINE SODIUM) 75 Mcg Tablet, 75 MCG PO QDAY, #90 TAB 4 Refills one and one half pills per day. started aflter last lab showed tsh of 91 Prov:MARKO MEZA MD 01/03/17 Diet: No Added Salt (SHEFALI) Copies to: JOHANA SHUKLA MD Venous Thromboembolism Antithrombotics Is Pt On Any Antithrombotics?: Yes IVETTE HONG MD Mar 25, 2017 14:15
== END 2017-03-25 16:20 | disposition home health service (06) | DRG 291 ==
LOC: ER 14:48 → ICU 16:26 → EDBEDREQ 16:35 → MED 03-19 18:15 → ICU 03-20 13:00 → MED 03-23 15:12
PROVIDERS: ADMIT Internal Medicine; ATTEND Internal Medicine
PROC: 5A09357 Assistance with Respiratory Ventilation, Less than 24 Consecutive Hours, Continuous Positive Airway Pressure (ICD-10-PCS; principal; 2017-03-18)
DX: I11.0 Hypertensive heart disease with heart failure (principal); J15.6 Pneumonia due to other Gram-negative bacteria; J96.01 Acute respiratory failure with hypoxia; J44.0 Chronic obstructive pulmonary disease with (acute) lower respiratory infection; I50.23 Acute on chronic systolic (congestive) heart failure; I25.10 Atherosclerotic heart disease of native coronary artery without angina pectoris; G89.29 Other chronic pain; F17.210 Nicotine dependence, cigarettes, uncomplicated; G43.909 Migraine, unspecified, not intractable, without status migrainosus; E78.5 Hyperlipidemia, unspecified; K21.9 Gastro-esophageal reflux disease without esophagitis; M80.08XD Age-related osteoporosis with current pathological fracture, vertebra(e), subsequent encounter for fracture with routine healing; E89.0 Postprocedural hypothyroidism; Z86.73 Personal history of transient ischemic attack (TIA), and cerebral infarction without residual deficits; Z88.8 Allergy status to other drugs, medicaments and biological substances; Z88.5 Allergy status to narcotic agent; Z90.49 Acquired absence of other specified parts of digestive tract; Z99.81 Dependence on supplemental oxygen; Z95.5 Presence of coronary angioplasty implant and graft
CPT/HCPCS: 36415; 36600; 71045; 71270; 81001; 82040; 82247; 82310; 82374; 82435; 82565; 82803; 82947; 83735; 83880; 84075; 84132; 84155; 84295; 84443; 84450; 84460; 84484; 84520; 85025; 85379; 87040; 87070; 87077; 87186; 87502; 93005; 93306; 94640; 94660; 96361; 96365; 96367; 96375; 97161; 97165; 99284; J0696; J1650; J1940; J1956; J2060; J2543; J2550; J2930; J3480; J3490; J7030; J7050; J7613; Q9967

== ENCOUNTER 2017-03-23 07:15 | Outpatient (RCR) | payer MEDICARE ==
[2017-03-19 13:56] VITALS: BMI 20.4
[~2017-03-23 07:15] MED LIST changes: +ATOR40TA69 PO; +CARB-127 PO; +FLUD0.1T12 PO; +LEVO-3 PO; +OMEP40CA48 PO; +TAPE75TA PO; +TIZA4CAP3 PO; +VAR05PT PO
[2017-03-25] MEDS ORDERED: CEF300 PO (11:33)
--- NOTE | 2017-03-26 11:11 | Transitional Care Management ---
TCM Discharge Criteria Transitional Care Comment: 03/22 he was sleeping but review pneumoia, CHF, COPD with who had multiple pertinent questions and interactions 03/26 Unable to contact left message. MARIA LUISA BROOKS Mar 26, 2017 11:11
--- NOTE | 2017-03-28 14:30 | Transitional Care Management ---
Assessment Visit Type: Telephone Visit Spoke with: Emilia Cardiac: WNL Except Cardiac Comment: 03/28 He is orthostatic at times. Respiratory: WNL Except Respiratory Comment: 03/28 Denies SOB on 3L O2. GI: Nutrition: WNL Except GI Comment: 03/28 Poor appetie. Wt Gain/Loss: WNL Except Weight Comment: 03/28 He has a very poor appetite, and is not eating much, but has gained 2 pounds since discharge. Todays weight, 115.8 pounds. Constipation?: No : WNL Musculoskeletal, Exercise: WNL Except Musculoskeletal, Excercise Com: 03/28 He has no stamina, activities wear him out fast. Mobility/Falls: WN Mobility Comment: 03/28 He moves safely as long as he is not overdoing it. I encouraged him to not do to much at once. Integumentary: WNL Feeling of Well Being: WN Feeling of Well Being Comment: 03/28 Feels good to be home. Socialization: WN Socialization Comment: 03/28 lives at home with his . Pain/Management: WNL Pain/Management Comment: 03/28 Chronic pain issues. Scheduled Follow-Up with Provi: Yes (03/[address] Shukla on 04/[address] Patrick (cardiology) on 04/15) Questions for Future PCP Visit: 03/28 Continue taking Fludrocortisone, Zofran, Maxalt Following Discharge Instructio: Yes TCM Discharge Criteria Medication Knowledge: 03/28 Emilia is very knowledgable. Transitional Care Comment: 03/22 he was sleeping but review pneumoia, CHF, COPD with who had multiple pertinent questions and interactions 03/26 Unable to contact left message. 03/28 I spoke with Emilia (), Zurdo is not eating well, though gaining weight. I educated on weight gain of 2lbs in a day or 3-5 lbs in a week, to call the MD. He has gained 2 lbs since discharge. I will call tomorrow to check his weight. Discharge orders are very confusing as orders were changed by hand at the time of discharge. We reviewed them, I clearified orders based on discharge note and the explainations given to her at the time of discharge. Copies to: JOHANA SHUKLA MD, MICHAEL K Mar 28, 2017 14:30
[2017-03-29] MEDS ORDERED: METO25TA23 PO (13:18)
--- NOTE | 2017-03-29 14:41 | Transitional Care Management ---
Assessment Visit Type: Telephone Visit Spoke with: Emilia Cardiac: WNL Except Cardiac Comment: 03/28 He is orthostatic at times. Respiratory: WNL Except Respiratory Comment: 03/28 Denies SOB on 3L O2. GI: Nutrition: WNL Except GI Comment: 03/28 Poor appetie. Wt Gain/Loss: WNL Except Weight Comment: 03/28 He has a very poor appetite, and is not eating much, but has gained 2 pounds since discharge. Todays weight, 115.8 pounds. 03/29 Today's weight is 17.8, they called for an appt with Dr Casper today. Constipation?: No : WNL Musculoskeletal, Exercise: WN Except Musculoskeletal, Excercise Com: 03/28 He has no stamina, activities wear him out fast. Mobility/Falls: [facility] Mobility Comment: 03/28 He moves safely as long as he is not overdoing it. I encouraged him to not do to much at once. Integumentary: [facility] Feeling of Well Being: [facility] Feeling of Well Being Comment: 03/28 Feels good to be home. Socialization: [facility] Socialization Comment: 03/28 lives at home with his . Pain/Management: [facility] Pain/Management Comment: 03/28 Chronic pain issues. Scheduled Follow-Up with Provi: Yes (03/[address] Shukla on 04/[address] Patrick (cardiology) on 04/15) Questions for Future PCP Visit: 03/28 Continue taking Fludrocortisone, Zofran, Maxalt 03/29 weight gain since discharge. Following Discharge Instructio: Yes TCM Discharge Criteria Medication Knowledge: 03/28 Emilia is very knowledgable. Transitional Care Comment: 03/22 he was sleeping but review pneumoia, CHF, COPD with who had multiple pertinent questions and interactions 03/26 Unable to contact left message. 03/28 I spoke with Emilia (), Zurdo is not eating well, though gaining weight. I educated on weight gain of 2lbs in a day or 3-5 lbs in a week, to call the MD. He has gained 2 lbs since discharge. I will call tomorrow to check his weight. Discharge orders are very confusing as orders were changed by hand at the time of discharge. We reviewed them, I clearified orders based on discharge note and the explainations given to her at the time of discharge. 03/29 His wieght is up almost 5 pounds since discharge, Her will see Dr Casper today. 03/29 I spoke with them after the Appt. Labs were drawn, his med list was reviewed, no changes at this time. Copies to: VERNON CASPER DNP, [employer] DELLA LAUGHLIN Mar 29, 2017 14:41
[2017-04-04] MEDS ORDERED: ONDA4TAB97 PO (11:41)
[2017-04-04] MEDS ORDERED: ALPR-429 PO (11:41)
--- NOTE | 2017-04-05 13:45 | Transitional Care Management ---
Assessment Visit Type: Telephone Visit Spoke with: Emilia Cardiac: WNL Except Cardiac Comment: 03/28 He is orthostatic at times. 2/ reports bp's have been low (106/67 yesterday) and MD gilliam metoprolol, no dizzyness. [facility] nurse pointed out tiny edema in ankles. I enc elevation and wearing comp socks that she was not aware of could help Respiratory: WNL Except Respiratory Comment: 03/28 Denies SOB on 3L O2. 2 "I don't know what (early signs) of pneumonia are". review this with her and enc, early intervention. denies sob cough. No smoking since hospital dc. says he can wean O2 using oximeter an how he feels. Has PFT on 04/08 GI: Nutrition: WNL Except GI Comment: 03/28 Poor appetie. 2/ reports better appetite, enc hi pro foods. Stated harder to give up pizza and sausage than his cigarettes. Follow SHEFALI diet and 2 L fluids/day. Wt Gain/Loss: WNL Except Weight Comment: 03/28 He has a very poor appetite, and is not eating much, but has gained 2 pounds since discharge. Todays weight, 115.8 pounds. 03/29 Today's weight is 17.8, they called for an appt with Dr Jackson today. 2 wt 118-123 at MD visits. Wt 115, 1185, 121, 122 athome. Constipation?: Yes (2/ using miralax, will take MOM or dulc) : WNL Musculoskeletal, Exercise: WNL Except Musculoskeletal, Excercise Com: 03/28 He has no stamina, activities wear him out fast. 2/6 using just a canenow. Mobility/Falls: WNL Mobility Comment: 03/28 He moves safely as long as he is not overdoing it. I encouraged him to not do to much at once. 2/6 just a cane unless at night when he use walker. Has PT/OT x 3 more weeks with decreasing frequency Integumentary: WNL Feeling of Well Being: WNL Feeling of Well Being Comment: 03/28 Feels good to be home. 2/ feels better than he has in several weeks. worried that new edema in legs is in heart and he will be hospitalized Socialization: WNL Socialization Comment: 03/28 lives at home with his . Pain/Management: [facility] Pain/Management Comment: 03/28 Chronic pain issues. 04/05 MD dc his ambien and decreased xanax. Scheduled Follow-Up with Provi: Yes (03/[address] Shukla on 04/[address] Patrick (cardiology) on 04/15) Community Resources/HHC: 04/05 MD wants him to do pulm rehab when he is better, ie next class. Sees Dr Allred (cardio) on 04/15 Questions for Future PCP Visit: 03/28 Continue taking Fludrocortisone, Zofran, Maxalt 03/29 weight gain since discharge. Needed or Pending Tests: Yes (has labs on 04/08 and a PFT) Following Discharge Instructio: Yes TCM Discharge Criteria Medication Knowledge: 03/28 Emilia is very knowledgable. Disease Management/Concern/Wha: 04/05 review COPD, CHF s/s Transitional Care Comment: 03/22 he was sleeping but review pneumoia, CHF, COPD with who had multiple pertinent questions and interactions 03/26 Unable to contact left message. 03/28 I spoke with Emilia (), Zurdo is not eating well, though gaining weight. I educated on weight gain of 2lbs in a day or 3-5 lbs in a week, to call the MD. He has gained 2 lbs since discharge. I will call tomorrow to check his weight. Discharge orders are very confusing as orders were changed by hand at the time of discharge. We reviewed them, I clarified orders based on discharge note and the explanations given to her at the time of discharge. 03/29 His wieght is up almost 5 pounds since discharge, Her will see Dr Jackson today. 03/29 I spoke with them after the Appt. Labs were drawn, his med list was reviewed, no changes at this time. 04/05 review changes in meds and new orders against MD office note. Reports hes feeling better, eating more, moving better. Will elevate feet more, wears comp socks, monitor for sob/cough, wt q day, report changes to MD for consideration of diuretic if needed SHARAD IRVIN Apr 05, 2017 13:45
[2017-04-12] MEDS ORDERED: SULF-198 PO (12:42)
--- NOTE | 2017-04-13 15:11 | Transitional Care Management ---
Assessment Visit Type: Telephone Visit Spoke with: Emilia Cardiac: WNL Except Cardiac Comment: 03/28 He is orthostatic at times. 04/05 reports bp's have been low (106/67 yesterday) and MD dc metoprolol, no dizzyness. [facility] nurse pointed out tiny edema in ankles. I enc elevation and wearing comp socks that she was not aware of could help 04/13 no edema, sob or wt gain Respiratory: WNL Except Respiratory Comment: 03/28 Denies SOB on 3L O2. 04/05 "I don't know what (early signs) of pneumonia are". review this with her and enc, early intervention. denies sob cough. No smoking since hospital dc. MD says he can wean O2 using oximeter an how he feels. Has PFT on 04/08 04/13 MD stated yesterday he didn't have PFT results and wanted a 6 min walk test before dc O2. REmains on 1 L prn GI: Nutrition: WNL Except GI Comment: 03/28 Poor appetie. 04/05 reports better appetite, enc hi pro foods. Stated harder to give up pizza and sausage than his cigarettes. Follow SHEFALI diet and 2 L fluids/day. 04/13 reports items that are hi na that they have dc and limit fluids. Wt Gain/Loss: WNL Except Weight Comment: 03/28 He has a very poor appetite, and is not eating much, but has gained 2 pounds since discharge. Todays weight, 115.8 pounds. 03/29 Today's weight is 17.8, they called for an appt with Dr Jackson today. 04/05 wt 118-123 at MD visits. Wt 115, 1185, 121, 122 athome. 04/13 wt 123 yest, wt q day in his pajamas Constipation?: Yes (04/05 using miralax, will take MOM or dulc) : WNL Except Comment: 04/13 has UTI, stared bactrim, enc to drink up to 2 L and of Diarrhea as se, take with food as he already had NV. Musculoskeletal, Exercise: WNL Except Musculoskeletal, Excercise Com: 03/28 He has no stamina, activities wear him out fast. 04/05 using just a cane now. 04/13 cont with [facility] therapy Mobility/Falls: WNL Mobility Comment: 03/28 He moves safely as long as he is not overdoing it. I encouraged him to not do to much at once. 04/05 just a cane unless at night when he use walker. Has PT/OT x 3 more weeks with decreasing frequency Integumentary: WNL Feeling of Well Being: WN Feeling of Well Being Comment: 03/28 Feels good to be home. / feels better than he has in several weeks. worried that new edema in legs is in heart and he will be hospitalized Socialization: WN Socialization Comment: 03/28 lives at home with his . Pain/Management: WN Pain/Management Comment: 03/28 Chronic pain issues. 04/05 MD dc his ambien and decreased xanax. Scheduled Follow-Up with Provi: Yes (03/[address] Shukla on 04/[address] Patrick (cardiology) on 04/15) Community Resources/[facility]: 04/05 MD wants him to do pulm rehab when he is better, ie next class. Sees Dr Allred (cardio) on 04/15. Luma didn't know when next pulm rehab class would start but aware of his referral per his Questions for Future PCP Visit: 03/28 Continue taking Fludrocortisone, Zofran, Maxalt 03/29 weight gain since discharge. Needed or Pending Tests: Yes (has labs on 04/08 and a PFT) Following Discharge Instructio: Yes TCM Discharge Criteria Medication Knowledge: 03/28 Emilia is very knowledgable. Disease Management/Concern/Wha: 04/05 review COPD, CHF s/s Transitional Care Comment: 03/22 he was sleeping but review pneumoia, CHF, COPD with who had multiple pertinent questions and interactions 03/26 Unable to contact left message. 03/28 I spoke with Emilia (), Zurdo is not eating well, though gaining weight. I educated on weight gain of 2lbs in a day or 3-5 lbs in a week, to call the MD. He has gained 2 lbs since discharge. I will call tomorrow to check his weight. Discharge orders are very confusing as orders were changed by hand at the time of discharge. We reviewed them, I clarified orders based on discharge note and the explanations given to her at the time of discharge. 03/29 His wieght is up almost 5 pounds since discharge, Her will see Dr Jackson today. 03/29 I spoke with them after the Appt. Labs were drawn, his med list was reviewed, no changes at this time. 04/05 review changes in meds and new orders against MD office note. Reports hes feeling better, eating more, moving better. Will elevate feet more, wears comp socks, monitor for sob/cough, wt q day, report changes to MD for consideration of diuretic if needed 04/13 well til UTI sx with NV started. to md yest, start atb . has f/u with cardiology, still on 1 L. feeling improved SHARAD IRVIN Apr 13, 2017 15:11
--- NOTE | 2017-04-22 14:28 | Transitional Care Management ---
Assessment Cardiac: WNL Except Cardiac Comment: 03/28 He is orthostatic at times. 04/05 reports bp's have been low (106/67 yesterday) and MD dc metoprolol, no dizzyness. [facility] nurse pointed out tiny edema in ankles. I enc elevation and wearing comp socks that she was not aware of could help 04/13 no edema, sob or wt gain 04/22 denies and CP "I'm doing very well. Improving daily" Respiratory: WNL Except Respiratory Comment: 03/28 Denies SOB on 3L O2. 04/05 "I don't know what (early signs) of pneumonia are". review this with her and enc, early intervention. denies sob cough. No smoking since hospital dc. MD says he can wean O2 using oximeter an how he feels. Has PFT on 04/08 04/13 MD stated yesterday he didn't have PFT results and wanted a 6 min walk test before dc O2. REmains on 1 L prn 04/22 O2 sats have been around 94-98% on RA only wearing O2 at HS 1L" GI: Nutrition: WNL Except GI Comment: 03/28 Poor appetie. 04/05 reports better appetite, enc hi pro foods. Stated harder to give up pizza and sausage than his cigarettes. Follow SHEFALI diet and 2 L fluids/day. 04/13 reports items that are hi na that they have dc and limit fluids 04.22 "I feel like this very difficult but my and I are watching Na+ contact of food and trying to keep it a a low end" Wt Gain/Loss: WNL Except Weight Comment: 03/28 He has a very poor appetite, and is not eating much, but has gained 2 pounds since discharge. Todays weight, 115.8 pounds. 03/29 Today's weight is 17.8, they called for an appt with Dr Jackson today. 04/05 wt 118-123 at MD visits. Wt 115, 1185, 121, 122 athome. 04/13 wt 123 yest, wt q day in his [facility] 04/22 Weighing every day when I get up. Staying within 11/2 lb up or down. Constipation?: Yes (04/05 using miralax, will take MOM or dulc) : WNL Except Comment: 04/13 has UTI, stared bactrim, enc to drink up to 2 L and of Diarrhea as se, take with food as he already had NV. "I don't seem to have any problems with that end at this time" Musculoskeletal, Exercise: WNL Except Musculoskeletal, Excercise Com: 03/28 He has no stamina, activities wear him out fast. 04/05 using just a cane now. 04/13 cont with [facility] therapy 04/22 still have HH-infact they just left. I feel like I'm getting stronger. Mobility/Falls: WNL Mobility Comment: 03/28 He moves safely as long as he is not overdoing it. I encouraged him to not do to much at once. 04/05 just a cane unless at night when he use walker. Has PT/OT x 3 more weeks with decreasing frequency Integumentary: WNL Feeling of Well Being: WN Feeling of Well Being Comment: 03/28 Feels good to be home. 04/05 feels better than he has in several weeks. worried that new edema in legs is in heart and he will be hospitalized Socialization: WNL Socialization Comment: 03/28 lives at home with his . Pain/Management: [facility] Pain/Management Comment: 03/28 Chronic pain issues. 04/05 dc his ambien and decreased xanax. Scheduled Follow-Up with Provi: Yes (03/[address] Shukla on 04/[address] Patrick (cardiology) on 04/15. 04/[address] Shukla next Tuesday and hope to get all the information together.) Community Resources/HHC: 04/05 MD wants him to do pulm rehab when he is better, ie next class. Sees Dr Allred (cardio) on 04/15. Luma didn't know when next pulm rehab class would start but aware of his referral per his Questions for Future PCP Visit: 03/28 Continue taking Fludrocortisone, Zofran, Maxalt 03/29 weight gain since discharge. Needed or Pending Tests: Yes (has labs on 04/08 and a PFT) Following Discharge Instructio: Yes TCM Discharge Criteria Medication Knowledge: 03/28 Emilia is very knowledgable. Disease Management/Concern/Wha: 04/05 review COPD, CHF s/s Transitional Care Comment: 03/22 he was sleeping but review pneumoia, CHF, COPD with who had multiple pertinent questions and interactions 03/26 Unable to contact left message. 03/28 I spoke with Emilia (), Zurdo is not eating well, though gaining weight. I educated on weight gain of 2lbs in a day or 3-5 lbs in a week, to call the MD. He has gained 2 lbs since discharge. I will call tomorrow to check his weight. Discharge orders are very confusing as orders were changed by hand at the time of discharge. We reviewed them, I clarified orders based on discharge note and the explanations given to her at the time of discharge. 03/29 His wieght is up almost 5 pounds since discharge, Her will see Dr Jackson today. 03/29 I spoke with them after the Appt. Labs were drawn, his med list was reviewed, no changes at this time. 04/05 review changes in meds and new orders against MD office note. Reports hes feeling better, eating more, moving better. Will elevate feet more, wears comp socks, monitor for sob/cough, wt q day, report changes to MD for consideration of diuretic if needed 04/13 well til UTI sx with NV started. to md yest, start atb . has f/u with cardiology, still on 1 L. feeling improved 04/22 Sounded very upbeat. Sees Dr Shukla in a week and hopes all the information from Resp, [employer] and everything will come together." "I am feeling better though!" Copies to: JOHANA SHUKLA MD, JOAN Apr 22, 2017 14:28
--- NOTE | 2017-04-30 13:10 | Transitional Care Management ---
Assessment Visit Type: Telephone Visit Spoke with: Emilia Cardiac: WNL Except Cardiac Comment: 03/28 He is orthostatic at times. 04/05 reports bp's have been low (106/67 yesterday) and MD dc metoprolol, no dizzyness. [facility] nurse pointed out tiny edema in ankles. I enc elevation and wearing comp socks that she was not aware of could help 04/13 no edema, sob or wt gain 04/30 No edema 04/22 denies and CP "I'm doing very well. Improving daily" Respiratory: WNL Except Respiratory Comment: 03/28 Denies SOB on 3L O2. 04/05 "I don't know what (early signs) of pneumonia are". review this with her and enc, early intervention. denies sob cough. No smoking since hospital dc. MD says he can wean O2 using oximeter an how he feels. Has PFT on 04/08 04/13 stated yesterday he didn't have PFT results and wanted a 6 min walk test before dc O2. REmains on 1 L prn 04/22 O2 sats have been around 94-98% on RA only wearing O2 at HS 1L" GI: Nutrition: WNL Except GI Comment: 03/28 Poor appetie. 04/05 reports better appetite, enc hi pro foods. Stated harder to give up pizza and sausage than his cigarettes. Follow SHEFALI diet and 2 L fluids/day. 04/13 reports items that are hi na that they have dc and limit fluids 04.22 "I feel like this very difficult but my and I are watching Na+ contact of food and trying to keep it a a low end" Wt Gain/Loss: WNL Except Weight Comment: 03/28 He has a very poor appetite, and is not eating much, but has gained 2 pounds since discharge. Todays weight, 115.8 pounds. 03/29 Today's weight is 17.8, they called for an appt with Dr Jackson today. 04/05 wt 118-123 at MD visits. Wt 115, 1185, 121, 122 athome. 04/13 wt 123 yest, wt q [facility] 04/22 Weighing every day when I get up. Staying within 11/2 lb up or down. Constipation?: Yes (04/05 using miralax, will take MOM or dulc) : WNL Except Comment: 04/13 has UTI, stared bactrim, enc to drink up to 2 L and of Diarrhea as se, take with food as he already had NV. "I don't seem to have any problems with that end at this time" Musculoskeletal, Exercise: WNL Except Musculoskeletal, Excercise Com: 03/28 He has no stamina, activities wear him out fast. 04/05 using just a cane now. 04/13 cont with [facility] therapy 04/22 still have HH-infact they just left. I feel like I'm getting stronger. Mobility/Falls: WN Mobility Comment: 03/28 He moves safely as long as he is not overdoing it. I encouraged him to not do to much at once. 04/05 just a cane unless at night when he use walker. Has PT/OT x 3 more weeks with decreasing frequency Integumentary: WN Feeling of Well Being: WN Feeling of Well Being Comment: 03/28 Feels good to be home. 04/05 feels better than he has in several weeks. worried that new edema in legs is in heart and he will be hospitalized Socialization: WN Socialization Comment: 03/28 lives at home with his . Pain/Management: WN Pain/Management Comment: 03/28 Chronic pain issues. 2/ dc his ambien and decreased xanax. Scheduled Follow-Up with Provi: Yes (04/30 sai Shukla next on 06/13) Community Resources/HHC: 2/ MD wants him to do pulm rehab when he is better, ie next class. Sees Dr Allred (cardio) on 04/15. Luma didn't know when next pulm rehab class would start but aware of his referral per his Questions for Future PCP Visit: 03/28 Continue taking Fludrocortisone, Zofran, Maxalt 03/29 weight gain since discharge. Needed or Pending Tests: Yes Following Discharge Instructio: Yes TCM Discharge Criteria Medication Knowledge: 03/28 Emilia is very knowledgable. 04/30 Metoprolol and flourdrocortisone have been stopped Disease Management/Concern/Wha: 04/05 review COPD, CHF s/s Transitional Care Comment: 03/22 he was sleeping but review pneumoia, CHF, COPD with who had multiple pertinent questions and interactions 03/26 Unable to contact left message. 03/28 I spoke with Emilia (), Zurdo is not eating well, though gaining weight. I educated on weight gain of 2lbs in a day or 3-5 lbs in a week, to call the MD. He has gained 2 lbs since discharge. I will call tomorrow to check his weight. Discharge orders are very confusing as orders were changed by hand at the time of discharge. We reviewed them, I clarified orders based on discharge note and the explanations given to her at the time of discharge. 03/29 His wieght is up almost 5 pounds since discharge, Her will see Dr Jackson today. 03/29 I spoke with them after the Appt. Labs were drawn, his med list was reviewed, no changes at this time. 04/05 review changes in meds and new orders against MD office note. Reports hes feeling better, eating more, moving better. Will elevate feet more, wears comp socks, monitor for sob/cough, wt q day, report changes to MD for consideration of diuretic if needed 04/13 well til UTI sx with NV started. to md yest, start atb . has f/u with cardiology, still on 1 L. feeling improved 04/22 Sounded very upbeat. Sees Dr Shukla in a week and hopes all the information from Resp, [employer] and everything will come together." "I am feeling better though!" 3 He feels better than before he became ill. No F/U appts in the coming weeks, weights stable. Copies to: JOHANA SHUKLA MD, MICHAEL K Apr 30, 2017 13:10
[2017-05-02] MEDS ORDERED: NYST15CR32 TP (13:29)
--- NOTE | 2017-05-07 12:40 | Transitional Care Management ---
Assessment Visit Type: Telephone Visit Spoke with: Emilia Cardiac: WNL Except Cardiac Comment: 03/28 He is orthostatic at times. 04/05 reports bp's have been low (106/67 yesterday) and MD dc metoprolol, no dizzyness. [facility] nurse pointed out tiny edema in ankles. I enc elevation and wearing comp socks that she was not aware of could help 04/13 no edema, sob or wt gain 04/30 No edema 04/22 denies and CP "I'm doing very well. Improving daily" 05/07 Cardioi dc fludrocortisone, SBP 107, has hx of orthostat htn and will be careful when up to avoid fall, no edema. states her wrist bp monitor matched reading at MD office. Respiratory: WNL Except Respiratory Comment: 03/28 Denies SOB on 3L O2. 04/05 "I don't know what (early signs) of pneumonia are". review this with her and enc, early intervention. denies sob cough. No smoking since hospital dc. says he can wean O2 using oximeter an how he feels. Has PFT on 04/08 04/13 stated yesterday he didn't have PFT results and wanted a 6 min walk test before dc O2. REmains on 1 L prn 04/22 O2 sats have been around 94-98% on RA only wearing O2 at HS 1L" 05/07 low sat readings and wearing O2 at 2 L now but had been just on O2 at hs and with act. denies cough, sop, sputum, temp,edema. Enc breathing exercises as he is not able to be as active due to increased back pain GI: Nutrition: WNL Except GI Comment: 03/28 Poor appetie. 04/05 reports better appetite, enc hi pro foods. Stated harder to give up pizza and sausage than his cigarettes. Follow SHEFALI diet and 2 L fluids/day. 04/13 reports items that are hi na that they have dc and limit fluids 04.22 "I feel like this very difficult but my and I are watching Na+ contact of food and trying to keep it a a low end" 05/07 limited salt and fluids. appetite ok for him. states ST worried about aspiration. enc to eat even his lifesavers upright as his posture is poor due to back problems. 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 had emesis during noc and thinks he may need f/u. has been instructed to not take zofran by [facility] Wt Gain/Loss: WNL Except Weight Comment: 03/28 He has a very poor appetite, and is not eating much, but has gained 2 pounds since discharge. Todays weight, 115.8 pounds. 03/29 Today's weight is 17.8, they called for an appt with Dr Jackson today. 04/05 wt 118-123 at MD visits. Wt 115, 1185, 121, 122 athome. 04/13 wt 123 yest, [facility] 04/22 Weighing every day when I get up. Staying within 11/2 lb up or down. Constipation?: Yes (05/07 using miralax, will take MOM or dulc) : WNL Except Comment: 04/13 has UTI, stared bactrim, enc to drink up to 2 L and of Diarrhea as se, take with food as he already had NV. "I don't seem to have any problems with that end at this time" 05/07 has yeast infect at penis end, using nystat cream and is only a little better. has instrtuct to f/u with Vazquez on 05/09 and will relate his other sx. Musculoskeletal, Exercise: WNL Except Musculoskeletal, Excercise Com: 03/28 He has no stamina, activities wear him out fast. 04/05 using just a cane now. 04/13 cont with [facility] therapy 04/22 still have HH-infact they just left. I feel like I'm getting stronger. 05/07 unable to do therapy due to pain, had massage from PT that helped. ST added to regimin Mobility/Falls: WNL Mobility Comment: 03/28 He moves safely as long as he is not overdoing it. I encouraged him to not do to much at once. 2 just a cane unless at night when he use walker. Has PT/OT x 3 more weeks with decreasing frequency 05/07 decreased now due to pain, enc CDB exercises Integumentary: WNL Feeling of Well Being: WNL Feeling of Well Being Comment: 03/28 Feels good to be home. 2/ feels better than he has in several weeks. worried that new edema in legs is in heart and he will be hospitalized Socialization: WN Socialization Comment: 03/28 lives at home with his . Pain/Management: WN Pain/Management Comment: 03/28 Chronic pain issues. 04/05 dc his ambien and decreased xanax. 05/07 will f/u 05/09 with MD Scheduled Follow-Up with Provi: Yes (04/30 seed Vazquez next on 06/13) Community Resources/HHC: 04/05 MD wants him to do pulm rehab when he is better, ie next class. Sees Dr Allred (cardio) on 04/15. Luma didn't know when next pulm rehab class would start but aware of his referral per his 05/07 has multiple concerns of worsening condition; will contact PCP on 05/09(tuesday) Questions for Future PCP Visit: 03/28 Continue taking Fludrocortisone, Zofran, Maxalt 03/29 weight gain since discharge. Needed or Pending Tests: Yes Following Discharge Instructio: Yes TCM Discharge Criteria Medication Knowledge: 03/28 Emilia is very knowledgable. 04/30 Metoprolol and flourdrocortisone have been stopped Disease Management/Concern/Wha: 04/05 review COPD, CHF s/s Transitional Care Comment: 03/22 he was sleeping but review pneumoia, CHF, COPD with who had multiple pertinent questions and interactions 03/26 Unable to contact left message. 03/28 I spoke with Emilia (), Zurdo is not eating well, though gaining weight. I educated on weight gain of 2lbs in a day or 3-5 lbs in a week, to call the MD. He has gained 2 lbs since discharge. I will call tomorrow to check his weight. Discharge orders are very confusing as orders were changed by hand at the time of discharge. We reviewed them, I clarified orders based on discharge note and the explanations given to her at the time of discharge. 03/29 His wieght is up almost 5 pounds since discharge, Her will see Dr Jackson today. 03/29 I spoke with them after the Appt. Labs were drawn, his med list was reviewed, no changes at this time. 2 review changes in meds and new orders against MD office note. Reports hes feeling better, eating more, moving better. Will elevate feet more, wears comp socks, monitor for sob/cough, wt q day, report changes to MD for consideration of diuretic if needed 04/13 well til UTI sx with NV started. to md yest, start atb . has f/u with cardiology, still on 1 L. feeling improved 04/22 Sounded very upbeat. Sees Dr Shukla in a week and hopes all the information from Resp, Bead Cutter and everything will come together." "I am feeling better though!" 04/30 He feels better than before he became ill. No F/U appts in the coming weeks, weights stable. 05/07 multiple concerns. review sit up for drinks/snacks, CDB to prevent pneumonia and early s/s to report floresita if silent aspiration is consideration. review early s/s to report or bring to ER. enc f/u with gastro,uro, pain spec if needed SHARAD IRVIN May 07, 2017 12:40
--- NOTE | 2017-05-16 10:47 | Transitional Care Management ---
Assessment Visit Type: Telephone Visit Spoke with: Emilia Cardiac: WNL Cardiac Comment: 03/28 He is orthostatic at times. 04/05 reports bp's have been low (106/67 yesterday) and MD dc metoprolol, no dizzyness. [facility] nurse pointed out tiny edema in ankles. I enc elevation and wearing comp socks that she was not aware of could help 04/13 no edema, sob or wt gain 04/30 No edema 04/22 denies and CP "I'm doing very well. Improving daily" 05/07 Cardioi dc fludrocortisone, SBP 107, has hx of orthostat htn and will be careful when up to avoid fall, no edema. states her wrist bp monitor matched reading at MD office. Respiratory: WNL Except Respiratory Comment: 03/28 Denies SOB on 3L O2. 04/05 "I don't know what (early signs) of pneumonia are". review this with her and enc, early intervention. denies sob cough. No smoking since hospital dc. MD says he can wean O2 using oximeter an how he feels. Has PFT on 04/08 04/13 MD stated yesterday he didn't have PFT results and wanted a 6 min walk test before dc O2. REmains on 1 L prn 04/22 O2 sats have been around 94-98% on RA only wearing O2 at HS 1L" 05/07 low sat readings and wearing O2 at 2 L now but had been just on O2 at hs and with act. denies cough, sop, sputum, temp,edema. Enc breathing exercises as he is not able to be as active due to increased back pain 05/16 Wearing @L O2 at night and PRN. GI: Nutrition: WNL Except GI Comment: 03/28 Poor appetie. 04/05 reports better appetite, enc hi pro foods. Stated harder to give up pizza and sausage than his cigarettes. Follow SHEFALI diet and 2 L fluids/day. 04/13 reports items that are hi na that they have dc and limit fluids 04.22 "I feel like this very difficult but my and I are watching Na+ contact of food and trying to keep it a a low end" 05/07 limited salt and fluids. appetite ok for him. states ST worried about aspiration. enc to eat even his lifesavers upright as his posture is poor due to back problems. 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 had emesis during noc and thinks he may need f/u. has been instructed to not take zofran by [facility] Wt Gain/Loss: WNL Except Weight Comment: 03/28 He has a very poor appetite, and is not eating much, but has gained 2 pounds since discharge. Todays weight, 115.8 pounds. 03/29 Today's weight is 17.8, they called for an appt with Dr Jackson today. 04/05 wt 118-123 at MD visits. Wt 115, 1185, 121, 122 athome. 04/13 wt 123 yest, wt q day in his pajalas 04/22 Weighing every day when I get up. Staying within 11/2 lb up or down. Constipation?: Yes (05/07 using miralax, will take MOM or dulc) : WNL Except Comment: 04/13 has UTI, stared bactrim, enc to drink up to 2 L and of Diarrhea as se, take with food as he already had NV. "I don't seem to have any problems with that end at this time" 05/07 has yeast infect at penis end, using nystat cream and is only a little better. has instrtuct to f/u with [facility] on 05/09 and will relate his other sx. Musculoskeletal, Exercise: WNL Except Musculoskeletal, Excercise Com: 03/28 He has no stamina, activities wear him out fast. 04/05 using just a cane now. 04/13 cont with [facility] therapy 04/22 still have HH-infact they just left. I feel like I'm getting stronger. 05/07 unable to do therapy due to pain, had massage from PT that helped. ST added to regimin 05/16 Less back pain, working with therapy again. Mobility/Falls: WNL Mobility Comment: 03/28 He moves safely as long as he is not overdoing it. I encouraged him to not do to much at once. 2/ just a cane unless at night when he use walker. Has PT/OT x 3 more weeks with decreasing frequency 05/07 decreased now due to pain, enc CDB exercises Integumentary: WNL Feeling of Well Being: WNL Feeling of Well Being Comment: 03/28 Feels good to be home. 04/05 feels better than he has in several weeks. worried that new edema in legs is in heart and he will be hospitalized Socialization: [facility] Socialization Comment: 03/28 lives at home with his . Pain/Management: [facility] Pain/Management Comment: 03/28 Chronic pain issues. 04/05 MD dc his ambien and decreased xanax. 05/07 will f/u 05/09 with 05/16 Back pain has returned to normal, chronic issue. Scheduled Follow-Up with Provi: Yes (04/30 seed Vazquez next on 06/13) Community Resources/HHC: 04/05 MD wants him to do pulm rehab when he is better, ie next class. Sees Dr Allred (cardio) on 04/15. Luma didn't know when next pulm rehab class would start but aware of his referral per his 05/07 has multiple concerns of worsening condition; will contact PCP on 05/09(tuesday) Questions for Future PCP Visit: 03/28 Continue taking Fludrocortisone, Zofran, Maxalt 03/29 weight gain since discharge. Needed or Pending Tests: Yes Following Discharge Instructio: Yes TCM Discharge Criteria Medication Knowledge: 03/28 Emilia is very knowledgable. 04/30 Metoprolol and flourdrocortisone have been stopped Disease Management/Concern/Wha: 04/05 review COPD, CHF s/s Transitional Care Comment: 03/22 he was sleeping but review pneumoia, CHF, COPD with who had multiple pertinent questions and interactions 03/26 Unable to contact left message. 03/28 I spoke with Emilia (), Zurdo is not eating well, though gaining weight. I educated on weight gain of 2lbs in a day or 3-5 lbs in a week, to call the MD. He has gained 2 lbs since discharge. I will call tomorrow to check his weight. Discharge orders are very confusing as orders were changed by hand at the time of discharge. We reviewed them, I clarified orders based on discharge note and the explanations given to her at the time of discharge. 03/29 His wieght is up almost 5 pounds since discharge, Her will see Dr Jackson today. 1/30 I spoke with them after the Appt. Labs were drawn, his med list was reviewed, no changes at this time. 04/05 review changes in meds and new orders against MD office note. Reports hes feeling better, eating more, moving better. Will elevate feet more, wears comp socks, monitor for sob/cough, wt q day, report changes to MD for consideration of diuretic if needed 04/13 well til UTI sx with NV started. to md yest, start atb . has f/u with cardiology, still on 1 L. feeling improved 04/22 Sounded very upbeat. Sees Dr Shukla in a week and hopes all the information from Resp, Internal Sales Engineer and everything will come together." "I am feeling better though!" 04/30 He feels better than before he became ill. No F/U appts in the coming weeks, weights stable. 05/07 multiple concerns. review sit up for drinks/snacks, CDB to prevent pneumonia and early s/s to report floresita if silent aspiration is consideration. review early s/s to report or bring to ER. enc f/u with gastro,uro, pain spec if needed 05/16 He has a barium swallow scheduled for 05/23, Appt with Dr Melchor 06/08, and Dr Shukla 06/13. He is more active now that his back pain is back to normal. DELLA LAUGHLIN May 16, 2017 10:46
--- NOTE | 2017-05-26 16:10 | Transitional Care Management ---
Assessment Cardiac: WNL Cardiac Comment: 03/28 He is orthostatic at times. 04/05 reports bp's have been low (106/67 yesterday) and MD dc metoprolol, no dizzyness. [facility] nurse pointed out tiny edema in ankles. I enc elevation and wearing comp socks that she was not aware of could help 04/13 no edema, sob or wt gain 04/30 No edema 04/22 denies and CP "I'm doing very well. Improving daily" 05/07 Cardioi dc fludrocortisone, SBP 107, has hx of orthostat htn and will be careful when up to avoid fall, no edema. states her wrist bp monitor matched reading at MD office. Respiratory: WNL Except Respiratory Comment: 03/28 Denies SOB on 3L O2. 04/05 "I don't know what (early signs) of pneumonia are". review this with her and enc, early intervention. denies sob cough. No smoking since hospital dc. MD says he can wean O2 using oximeter an how he feels. Has PFT on 04/08 04/13 stated yesterday he didn't have PFT results and wanted a 6 min walk test before dc O2. REmains on 1 L prn 04/22 O2 sats have been around 94-98% on RA only wearing O2 at HS 1L" 05/07 low sat readings and wearing O2 at 2 L now but had been just on O2 at hs and with act. denies cough, sop, sputum, temp,edema. Enc breathing exercises as he is not able to be as active due to increased back pain 05/16 Wearing @L O2 at night and PRN. GI: Nutrition: WNL Except GI Comment: 03/28 Poor appetie. 04/05 reports better appetite, enc hi pro foods. Stated harder to give up pizza and sausage than his cigarettes. Follow SHEFALI diet and 2 L fluids/day. 04/13 reports items that are hi na that they have dc and limit fluids 04.22 "I feel like this very difficult but my and I are watching Na+ contact of food and trying to keep it a a low end" 05/07 limited salt and fluids. appetite ok for him. states ST worried about aspiration. enc to eat even his lifesavers upright as his posture is poor due to back problems. 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 had emesis during noc and thinks he may need f/u. has been instructed to not take zofran by [facility] Wt Gain/Loss: WNL Except Weight Comment: 03/28 He has a very poor appetite, and is not eating much, but has gained 2 pounds since discharge. Todays weight, 115.8 pounds. 03/29 Today's weight is 17.8, they called for an appt with Dr Jackson today. 04/05 wt 118-123 at MD visits. Wt 115, 1185, 121, 122 athome. 04/13 wt 123 yest, wt q day in his [facility] 04/22 Weighing every day when I get up. Staying within 11/2 lb up or down. Constipation?: Yes (05/07 using miralax, will take MOM or dulc) : WNL Except Comment: 04/13 has UTI, stared bactrim, enc to drink up to 2 L and of Diarrhea as se, take with food as he already had NV. "I don't seem to have any problems with that end at this time" 05/07 has yeast infect at penis end, using nystat cream and is only a little better. has instrtuct to f/u with [facility] on 05/09 and will relate his other sx. Musculoskeletal, Exercise: WNL Except Musculoskeletal, Excercise Com: 03/28 He has no stamina, activities wear him out fast. 04/05 using just a cane now. 04/13 cont with [facility] therapy 04/22 still have HH-infact they just left. I feel like I'm getting stronger. 05/07 unable to do therapy due to pain, had massage from PT that helped. ST added to regimin 05/16 Less back pain, working with therapy again. Mobility/Falls: WNL Mobility Comment: 03/28 He moves safely as long as he is not overdoing it. I encouraged him to not do to much at once. 04/05 just a cane unless at night when he use walker. Has PT/OT x 3 more weeks with decreasing frequency 05/07 decreased now due to pain, enc CDB exercises Integumentary: WNL Feeling of Well Being: WNL Feeling of Well Being Comment: 03/28 Feels good to be home. 04/05 feels better than he has in several weeks. worried that new edema in legs is in heart and he will be hospitalized Socialization: [facility] Socialization Comment: 03/28 lives at home with his . Pain/Management: [facility] Pain/Management Comment: 03/28 Chronic pain issues. 04/05 dc his ambien and decreased xanax. 05/07 will f/u 05/09 with 05/16 Back pain has returned to normal, chronic issue. Scheduled Follow-Up with [facility]: Yes (04/30 seed [facility] next on 06/13) Community Resources/HHC: 04/05 MD wants him to do pulm rehab when he is better, ie next class. Sees Dr Allred (cardio) on 04/15. Luma didn't know when next pulm rehab class would start but aware of his referral per his 05/07 has multiple concerns of worsening condition; will contact PCP on 05/09(tuesday) Questions for Future PCP Visit: 03/28 Continue taking Fludrocortisone, Zofran, Maxalt 03/29 weight gain since discharge. Needed or Pending Tests: Yes Following Discharge Instructio: Yes TCM Discharge Criteria Medication Knowledge: 03/28 Emilia is very knowledgable. 04/30 Metoprolol and flourdrocortisone have been stopped Disease Management/Concern/Wha: 04/05 review COPD, CHF s/s Transitional Care Comment: 03/22 he was sleeping but review pneumoia, CHF, COPD with who had multiple pertinent questions and interactions 03/26 Unable to contact left message. 03/28 I spoke with Emilia (), Zurdo is not eating well, though gaining weight. I educated on weight gain of 2lbs in a day or 3-5 lbs in a week, to call the MD. He has gained 2 lbs since discharge. I will call tomorrow to check his weight. Discharge orders are very confusing as orders were changed by hand at the time of discharge. We reviewed them, I clarified orders based on discharge note and the explanations given to her at the time of discharge. 03/29 His wieght is up almost 5 pounds since discharge, Her will see Dr Jackson today. 03/29 I spoke with them after the Appt. Labs were drawn, his med list was reviewed, no changes at this time. 04/05 review changes in meds and new orders against MD office note. Reports hes feeling better, eating more, moving better. Will elevate feet more, wears comp socks, monitor for sob/cough, wt q day, report changes to MD for consideration of diuretic if needed 04/13 well til UTI sx with NV started. to md yest, start atb . has f/u with cardiology, still on 1 L. feeling improved 04/22 Sounded very upbeat. Sees Dr Shukla in a week and hopes all the information from Resp, [employer] and everything will come together." "I am feeling better though!" 04/30 He feels better than before he became ill. No F/U appts in the coming weeks, weights stable. 05/07 multiple concerns. review sit up for drinks/snacks, CDB to prevent pneumonia and early s/s to report floresita if silent aspiration is consideration. review early s/s to report or bring to ER. enc f/u with gastro,uro, pain spec if needed 05/16 He has a barium swallow scheduled for 05/23, Appt with Dr Melchor 06/08, and Dr Shukla 06/13. He is more active now that his back pain is back to normal. 05/26 Left message. DELLA LAUGHLIN May 26, 2017 16:10
--- NOTE | 2017-05-30 14:09 | Transitional Care Management ---
Assessment Visit Type: Telephone Visit (05/30 Emilia) Cardiac: WNL Cardiac Comment: 03/28 He is orthostatic at times. 04/05 reports bp's have been low (106/67 yesterday) and MD gilliam metoprolol, no dizzyness. [facility] nurse pointed out tiny edema in ankles. I enc elevation and wearing comp socks that she was not aware of could help 04/13 no edema, sob or wt gain 04/30 No edema 04/22 denies and CP "I'm doing very well. Improving daily" 05/07 Cardioi dc fludrocortisone, SBP 107, has hx of orthostat htn and will be careful when up to avoid fall, no edema. states her wrist bp monitor matched reading at MD office. 05/30 Denies any CP at this time Does have orthostatic BP changes so the PT person is very careful about monitoring before and during exercises. Respiratory: WNL Except Respiratory Comment: 03/28 Denies SOB on 3L O2. 04/05 "I don't know what (early signs) of pneumonia are". review this with her and enc, early intervention. denies sob cough. No smoking since hospital dc. says he can wean O2 using oximeter an how he feels. Has PFT on 04/08 04/13 stated yesterday he didn't have PFT results and wanted a 6 min walk test before dc O2. REmains on 1 L prn 04/22 O2 sats have been around 94-98% on RA only wearing O2 at HS 1L" 05/07 low sat readings and wearing O2 at 2 L now but had been just on O2 at hs and with act. denies cough, sop, sputum, temp,edema. Enc breathing exercises as he is not able to be as active due to increased back pain 05/16 Wearing @L O2 at night and PRN. 05/30 still on O2 but will be taking another 6 min O@ test in a couple of weeks and hopes to get off O2 at least during the days.. Breathing OK at this time and denies no SOB w 2 GI: Nutrition: WNL Except GI Comment: 03/28 Poor appetie. 04/05 reports better appetite, enc hi pro foods. Stated harder to give up pizza and sausage than his cigarettes. Follow SHEFALI diet and 2 L fluids/day. 04/13 reports items that are hi na that they have dc and limit fluids 04.22 "I feel like this very difficult but my and I are watching Na+ contact of food and trying to keep it a a low end" 05/07 limited salt and fluids. appetite ok for him. states ST worried about aspiration. enc to eat even his lifesavers upright as his posture is poor due to back problems. has hx of seeing mixing machine tender cork rod for dilating esophagus; last done 2 yr ago. had emesis during noc and thinks he may need f/u. has been instructed to not take zofran by [facility] 05/30 No nausea at this time. HH did get ST to come and work with him and he had a speech testing an a barium swallowing test a week ago but they said that was ok and they hope to dc ST as she would like to have 1 less person. Wt Gain/Loss: WNL Except Weight Comment: 03/28 He has a very poor appetite, and is not eating much, but has gained 2 pounds since discharge. Todays weight, 115.8 pounds. 03/29 Today's weight is 17.8, they called for an appt with Dr Jackson today. 04/05 wt 118-123 at MD visits. Wt 115, 1185, 121, 122 athome. 04/13 wt 123 yest, wt q day in his [facility] 04/22 Weighing every day when I get up. Staying within 11/2 lb up or down. 05/30 still weighting qd and really no changes Constipation?: Yes (05/07 using miralax, will take MOM or dulc) : WNL Except Comment: 04/13 has UTI, stared bactrim, enc to drink up to 2 L and of Diarrhea as se, take with food as he already had NV. "I don't seem to have any problems with that end at this time" 05/07 has yeast infect at penis end, using nystat cream and is only a little better. has instrtuct to f/u with [facility] on 05/09 and will relate his other sx. Musculoskeletal, Exercise: WNL Except Musculoskeletal, Excercise Com: 03/28 He has no stamina, activities wear him out fast. 04/05 using just a cane now. 04/13 cont with [facility] therapy 04/22 still have HH-infact they just left. I feel like I'm getting stronger. 05/07 unable to do therapy due to pain, had massage from PT that helped. ST added to regimin 05/16 Less back pain, working with therapy again. Mobility/Falls: WNL Mobility Comment: 03/28 He moves safely as long as he is not overdoing it. I encouraged him to not do to much at once. 04/05 just a cane unless at night when he use walker. Has PT/OT x 3 more weeks with decreasing frequency 05/07 decreased now due to pain, enc CDB exercises 05/30 working w PT and doing pretty well feels like he is getting stronger Integumentary: WN Feeling of Well Being: WN Feeling of Well Being Comment: 03/28 Feels good to be home. 04/05 feels better than he has in several weeks. worried that new edema in legs is in heart and he will be hospitalized Socialization: WN Socialization Comment: 03/28 lives at home with his . Pain/Management: WN Pain/Management Comment: 03/28 Chronic pain issues. 04/05 MD dc his ambien and decreased xanax. 05/07 will f/u 05/09 with MD 05/16 Back pain has returned to normal, chronic issue. 05/30 got up this AM with really back pain-"I think I fx something as I heard a pop and now have very bad bx px. Taking narcotics that he has perscribed but not doing much. Enc him to let [facility] know of this severe px. Scheduled Follow-Up with [facility]: Yes (04/30 seed [facility] next on 06/13) Community Resources/HHC: 04/05 MD wants him to do pulm rehab when he is better, ie next class. Sees Dr Allred (cardio) on 04/15. [facility] didn't know when next pulm rehab class would start but aware of his referral per his 05/07 has multiple concerns of worsening condition; will contact PCP on 05/09(tuesday) Questions for Future PCP Visit: 03/28 Continue taking Fludrocortisone, Zofran, Maxalt 03/29 weight gain since discharge. Needed or Pending Tests: Yes Following Discharge Instructio: Yes TCM Discharge Criteria Medication Knowledge: 03/28 Emilia is very knowledgable. 04/30 Metoprolol and flourdrocortisone have been [id number] went over meds with and she seems quit well versed on what meds he is on and why. Disease Management/Concern/Wha: 04/05 review COPD, CHF s/s Transitional Care Comment: 03/22 he was sleeping but review pneumoia, CHF, COPD with who had multiple pertinent questions and interactions 03/26 Unable to contact left message. 03/28 I spoke with Emilia (), Zurdo is not eating well, though gaining weight. I educated on weight gain of 2lbs in a day or 3-5 lbs in a week, to call the MD. He has gained 2 lbs since discharge. I will call tomorrow to check his weight. Discharge orders are very confusing as orders were changed by hand at the time of discharge. We reviewed them, I clarified orders based on discharge note and the explanations given to her at the time of discharge. 03/29 His wieght is up almost 5 pounds since discharge, Her will see Dr Jackson today. 03/29 I spoke with them after the Appt. Labs were drawn, his med list was reviewed, no changes at this time. 04/05 review changes in meds and new orders against MD office note. Reports hes feeling better, eating more, moving better. Will elevate feet more, wears comp socks, monitor for sob/cough, wt q day, report changes to MD for consideration of diuretic if needed 04/13 well til UTI sx with NV started. to md yest, start atb . has f/u with cardiology, still on 1 L. feeling improved 04/22 Sounded very upbeat. Sees Dr Shukla in a week and hopes all the information from Resp, [employer] and everything will come together." "I am feeling better though!" 04/30 He feels better than before he became ill. No F/U appts in the coming weeks, weights stable. 05/07 multiple concerns. review sit up for drinks/snacks, CDB to prevent pneumonia and early s/s to report floresita if silent aspiration is consideration. review early s/s to report or bring to ER. enc f/u with gastro,uro, pain spec if needed 05/16 He has a barium swallow scheduled for 05/23, Appt with Dr Melchor 06/08, and Dr Shukla 06/13. He is more active now that his back pain is back to normal. 05/26 Left message 05/30 Seeing HH PT 2x a wk and was able to do treadmill for 6 min at a slow pace but that is an improvement for him. Her concern is the bx pain today. Enc her to call [facility] office and let them know about this pain as he has PT tomorrow and may need an xray.. Copies to: JOHANA SHUKLA MD, JOAN May 30, 2017 14:09
[2017-06-01] MEDS ORDERED: ALPR-429 PO (14:05)
--- NOTE | 2017-06-08 13:42 | Transitional Care Management ---
Assessment Visit Type: Telephone Visit (06/08 Emilia ()) Cardiac: WNL Cardiac Comment: 03/28 He is orthostatic at times. 04/05 reports bp's have been low (106/67 yesterday) and MD gilliam metoprolol, no dizzyness. [facility] nurse pointed out tiny edema in ankles. I enc elevation and wearing comp socks that she was not aware of could help 04/13 no edema, sob or wt gain 04/30 No edema 04/22 denies and CP "I'm doing very well. Improving daily" 05/07 Cardioi dc fludrocortisone, SBP 107, has hx of orthostat htn and will be careful when up to avoid fall, no edema. states her wrist bp monitor matched reading at MD office. 05/30 Denies any CP at this time Does have orthostatic BP changes so the PT person is very careful about monitoring before and during exercises. 06/08 Denies any CP- still monitoring BP. "Pretty much staying same" Respiratory: WNL Except Respiratory Comment: 03/28 Denies SOB on 3L O2. 04/05 "I don't know what (early signs) of pneumonia are". review this with her and enc, early intervention. denies sob cough. No smoking since hospital dc. says he can wean O2 using oximeter an how he feels. Has PFT on 04/08 04/13 stated yesterday he didn't have PFT results and wanted a 6 min walk test before dc O2. REmains on 1 L prn 04/22 O2 sats have been around 94-98% on RA only wearing O2 at HS 1L" 05/07 low sat readings and wearing O2 at 2 L now but had been just on O2 at hs and with act. denies cough, sop, sputum, temp,edema. Enc breathing exercises as he is not able to be as active due to increased back pain 05/16 Wearing @L O2 at night and PRN. 05/30 still on O2 but will be taking another 6 min O@ test in a couple of weeks and hopes to get off O2 at least during the days.. Breathing OK at this time and denies no SOB w 2 GI: Nutrition: WNL Except GI Comment: 03/28 Poor appetie. 04/05 reports better appetite, enc hi pro foods. Stated harder to give up pizza and sausage than his cigarettes. Follow SHEFALI diet and 2 L fluids/day. 04/13 reports items that are hi na that they have dc and limit fluids 04.22 "I feel like this very difficult but my and I are watching Na+ contact of food and trying to keep it a a low end" 05/07 limited salt and fluids. appetite ok for him. states ST worried about aspiration. enc to eat even his lifesavers upright as his posture is poor due to back problems. has hx of seeing biological chemist for dilating esophagus; last done 2 yr ago. had emesis during noc and thinks he may need f/u. has been instructed to not take zofran by Vazquez 05/30 No nausea at this time. HH did get ST to come and work with him and he had a speech testing an a barium swallowing test a week ago but they said that was ok and they hope to dc ST as she would like to have 1 less person. Wt Gain/Loss: WNL Except Weight Comment: 03/28 He has a very poor appetite, and is not eating much, but has gained 2 pounds since discharge. Todays weight, 115.8 pounds. 03/29 Today's weight is 17.8, they called for an appt with Dr Jackson today. 04/05 wt 118-123 at MD visits. Wt 115, 1185, 121, 122 athome. 04/13 wt 123 yest, wt q day [facility] 04/22 Weighing every day when I get up. Staying within 11/2 lb up or down. 05/30 still weighting qd and really no changes 06/08 wt daily but wt is down to 117-119 lb. Not eating well. Suggested supplements but he doesn't like them. Constipation?: Yes (05/07 using miralax, will take MOM or dulc) : WNL Except Comment: 04/13 has UTI, stared bactrim, enc to drink up to 2 L and of Diarrhea as se, take with food as he already had NV. "I don't seem to have any problems with that end at this time" 05/07 has yeast infect at penis end, using nystat cream and is only a little better. has instrtuct to f/u with Vazquez on 05/09 and will relate his other sx. Musculoskeletal, Exercise: WN Except Musculoskeletal, Excercise Com: 03/28 He has no stamina, activities wear him out fast. 2 using just a cane now. 04/[address] [facility] therapy 04/22 still have HH-infact they just left. I feel like I'm getting stronger. 05/07 unable to do therapy due to pain, had massage from PT that helped. ST added to regimin 05/16 Less back pain, working with therapy again. 06/08 still has PT but his back has been hurting alot. But trys hard to work with them and move around.. He went and had a bx XRay. PT showed him some exercises and he waas better Tuesday - yesterday and then when he was getting up he sneezed and heard/.felt his back pop. PT suggested he talk to Dr Shukla about a MRI.Emilia is going to call his pain Dr and see if they can increase the Tizandine by increasing the dosage. Mobility/Falls: WN Mobility Comment: 03/28 He moves safely as long as he is not overdoing it. I encouraged him to not do to much at once. 04/05 just a cane unless at night when he use walker. Has PT/OT x 3 more weeks with decreasing frequency 05/07 decreased now due to pain, enc CDB exercises 05/30 working w PT and doing pretty well feels like he is getting stronger Integumentary: [facility] Feeling of Well Being: [facility] Feeling of Well Being Comment: 03/28 Feels good to be home. 04/05 feels better than he has in several weeks. worried that new edema in legs is in heart and he will be hospitalized Socialization: [facility] Socialization Comment: 03/28 lives at home with his . Pain/Management: [facility] Pain/Management Comment: 03/28 Chronic pain issues. 04/05 dc his ambien and decreased xanax. 05/07 will f/u 05/09 with 05/16 Back pain has returned to normal, chronic issue. 05/30 got up this AM with really back pain-"I think I fx something as I heard a pop and now have very bad bx px. Taking narcotics that he has perscribed but not doing much. Enc him to let [facility] office know of this severe px. Scheduled Follow-Up with Bogdan: Yes (06/[address] Shukla on 06/13) Community Resources/C: 04/05 MD wants him to do pulm rehab when he is better, ie next class. Sees Dr Allred (cardio) on 04/15. Luma didn't know when next pulm rehab class would start but aware of his referral per his 05/07 has multiple concerns of worsening condition; will contact PCP on 05/09(tuesday) Questions for Future PCP Visit: 03/28 Continue taking Fludrocortisone, Zofran, Maxalt 03/29 weight gain since discharge. Needed or Pending Tests: Yes Following Discharge Instructio: Yes TCM Discharge Criteria Medication Knowledge: 03/28 Emilia is very knowledgable. 04/30 Metoprolol and flourdrocortisone have been [id number] went over meds with and she seems quit well versed on what meds he is on and why. Disease Management/Concern/Wha: 04/05 review COPD, CHF s/s 06/08 went over COPD and CHF red and yellow flags Transitional Care Comment: 03/22 he was sleeping but review pneumoia, CHF, COPD with who had multiple pertinent questions and interactions 03/26 Unable to contact left message. 03/28 I spoke with Emilia (), Zurdo is not eating well, though gaining weight. I educated on weight gain of 2lbs in a day or 3-5 lbs in a week, to call the MD. He has gained 2 lbs since discharge. I will call tomorrow to check his weight. Discharge orders are very confusing as orders were changed by hand at the time of discharge. We reviewed them, I clarified orders based on discharge note and the explanations given to her at the time of discharge. 03/29 His wieght is up almost 5 pounds since discharge, Her will see Dr Jackson today. 03/29 I spoke with them after the Appt. Labs were drawn, his med list was reviewed, no changes at this time. 04/05 review changes in meds and new orders against MD office note. Reports hes feeling better, eating more, moving better. Will elevate feet more, wears comp socks, monitor for sob/cough, wt q day, report changes to MD for consideration of diuretic if needed 04/13 well til UTI sx with NV started. to md yest, start atb . has f/u with cardiology, still on 1 L. feeling improved 04/22 Sounded very upbeat. Sees Dr Shukla in a week and hopes all the information from Resp, Casino Gaming Inspector and everything will come together." "I am feeling better though!" 04/30 He feels better than before he became ill. No F/U appts in the coming weeks, weights stable. 05/07 multiple concerns. review sit up for drinks/snacks, CDB to prevent pneumonia and early s/s to report floresita if silent aspiration is consideration. review early s/s to report or bring to ER. enc f/u with gastro,uro, pain spec if needed 05/16 He has a barium swallow scheduled for 05/23, Appt with Dr Melchor 06/08, and Dr Shukla 06/13. He is more active now that his back pain is back to normal. 05/26 Left message 05/30 Seeing HH PT 2x a wk and was able to do treadmill for 6 min at a slow pace but that is an improvement for him. Her concern is the bx pain today. Enc her to call [facility] office and let them know about this pain as he has PT tomorrow and may need an xray.. 06/08 Had the bx xray but PT is suggesting an MRI. He is having alot of px he is still trying to move around with them and on his own. Emilia going to call px in [place] and see if they can increase the muscel relaxant. Copies to: JOHANA SHUKLA MD, JOAN Jun 08, 2017 13:41
[2017-06-13] MEDS ORDERED: ALPR-461 PO (10:41)
[2017-06-13] MEDS ORDERED: PNEI IJ (10:51)
[2017-06-13] MEDS ORDERED: DEN60I SUBQ (10:54)
--- NOTE | 2017-06-16 12:39 | Transitional Care Management ---
Assessment Visit Type: Telephone Visit (Anuja) Cardiac: WNL Cardiac Comment: 03/28 He is orthostatic at times. 04/05 reports bp's have been low (106/67 yesterday) and MD gilliam metoprolol, no dizzyness. [facility] nurse pointed out tiny edema in ankles. I enc elevation and wearing comp socks that she was not aware of could help 04/13 no edema, sob or wt gain 04/30 No edema 04/22 denies and CP "I'm doing very well. Improving daily" 05/07 Cardioi dc fludrocortisone, SBP 107, has hx of orthostat htn and will be careful when up to avoid fall, no edema. states her wrist bp monitor matched reading at MD office. 05/30 Denies any CP at this time Does have orthostatic BP changes so the PT person is very careful about monitoring before and during exercises. 06/08 Denies any CP- still monitoring BP. "Pretty much staying same" 06/16 unchanged-denies CP Respiratory: WNL Except Respiratory Comment: 03/28 Denies SOB on 3L O2. 04/05 "I don't know what (early signs) of pneumonia are". review this with her and enc, early intervention. denies sob cough. No smoking since hospital dc. says he can wean O2 using oximeter an how he feels. Has PFT on 04/08 04/13 stated yesterday he didn't have PFT results and wanted a 6 min walk test before dc O2. REmains on 1 L prn 04/22 O2 sats have been around 94-98% on RA only wearing O2 at HS 1L" 05/07 low sat readings and wearing O2 at 2 L now but had been just on O2 at hs and with act. denies cough, sop, sputum, temp,edema. Enc breathing exercises as he is not able to be as active due to increased back pain 05/16 Wearing @L O2 at night and PRN. 05/30 still on O2 but will be taking another 6 min O@ test in a couple of weeks and hopes to get off O2 at least during the days.. Breathing OK at this time and denies no SOB w 2L 06/16 Gets SOB woth activity but is having an increase in bx px which causes him to be unable to take deep breaths. There is a Pul Rehab coarse starting June 28 and Emilia didn't think Zurdo was ready for it d/t bx px but I suggested she call them back and see if he can start and give itchance. GI: Nutrition: WNL Except GI Comment: 03/28 Poor appetie. 04/05 reports better appetite, enc hi pro foods. Stated harder to give up pizza and sausage than his cigarettes. Follow SHEFALI diet and 2 L fluids/day. 04/13 reports items that are hi na that they have dc and limit fluids 04.22 "I feel like this very difficult but my and I are watching Na+ contact of food and trying to keep it a a low end" 05/07 limited salt and fluids. appetite ok for him. states ST worried about aspiration. enc to eat even his lifesavers upright as his posture is poor due to back problems. has hx of seeing machining engineer for dilating esophagus; last done 2 yr ago. had emesis during noc and thinks he may need f/u. has been instructed to not take zofran by Vazquez 05/30 No nausea at this time. HH did get ST to come and work with him and he had a speech testing an a barium swallowing test a week ago but they said that was ok and they hope to dc ST as she would like to have 1 less person. 06/16 Con to not eat real well. She has been trying different protien drinks and he is not real fond of them. Wt Gain/Loss: WNL Except Weight Comment: 03/28 He has a very poor appetite, and is not eating much, but has gained 2 pounds since discharge. Todays weight, 115.8 pounds. 03/29 Today's weight is 17.8, they called for an appt with Dr Jackson today. 04/05 wt 118-123 at MD visits. Wt 115, 1185, 121, 122 athome. 04/13 wt 123 yest, wt q day in his pajamas 04/22 Weighing every day when I get up. Staying within 12/30 lb up or down. 05/30 still weighting qd and really no changes 06/08 wt daily but wt is down to 117-119 lb. Not eating well. Suggested supplements but he doesn't like them. Constipation?: Yes (05/07 using miralax, will take MOM or dulc) : WNL Except Comment: 04/13 has UTI, stared bactrim, enc to drink up to 2 L and of Diarrhea as se, take with food as he already had NV. "I don't seem to have any problems with that end at this time" 05/07 has yeast infect at penis end, using nystat cream and is only a little better. has instrtuct to f/u with Vazquez on 05/09 and will relate his other sx. Musculoskeletal, Exercise: WNL Except Musculoskeletal, Excercise Com: 03/28 He has no stamina, activities wear him out fast. 04/05 using just a cane now. 04/13 cont with [facility] therapy 04/22 still have HH-infact they just left. I feel like I'm getting stronger. 05/07 unable to do therapy due to pain, had massage from PT that helped. ST added to regimin 05/16 Less back pain, working with therapy again. 06/08 still has PT but his back has been hurting alot. But trys hard to work with them and move around.. He went and had a bx XRay. PT showed him some exercises and he waas better Tuesday - yesterday and then when he was getting up he sneezed and heard/.felt his back pop. PT suggested he talk to Dr Shukla about a MRI.Emilia is going to call his pain Dr and see if they can increase the Tizandine by increasing the dosage. 06/16 Pt sis now taking 1 1/2 doseage of Tizandine for muscle relaxant which she thinks is helping a little. D/T the bx px Dr. Shukla has changed his PT to Bx exercisces vs PT. They think he will have to do OP therapy. Mobility/Falls: WNL Mobility Comment: 03/28 He moves safely as long as he is not overdoing it. I encouraged him to not do to much at once. 04/05 just a cane unless at night when he use walker. Has PT/OT x 3 more weeks with decreasing frequency 05/07 decreased now due to pain, enc CDB exercises 05/30 working w PT and doing pretty well feels like he is getting stronger Integumentary: WNL Feeling of Well Being: WNL Feeling of Well Being Comment: 03/28 Feels good to be home. 04/05 feels better than he has in several weeks. worried that new edema in legs is in heart and he will be hospitalized Socialization: [facility] Socialization Comment: 03/28 lives at home with his . 06/16 he is becoming more intraverted and wanting to stay at home. john thinks it might be good that he may have to do OP therapy. Reason I suggested the possiblilty of starting Pul Rehab and seeing if he can do it. If not the next class doesn't start until August. Pain/Management: [facility] Pain/Management Comment: 03/28 Chronic pain issues. 04/05 dc his ambien and decreased xanax. 05/07 will f/u 05/09 with 05/16 Back pain has returned to normal, chronic issue. 05/30 got up this AM with really back pain-"I think I fx something as I heard a pop and now have very bad bx px. Taking narcotics that he has perscribed but not doing much. Enc him to let [facility] office know of this severe px. 06/16 Has increas in bx px to point it is difficult to do PT. Now going to try to swotch to PT for bx px. Scheduled Follow-Up with Provi: Yes (06/[address] Shukla on 06/13) Community Resources/C: 04/05 MD wants him to do pulm rehab when he is better, ie next class. Sees Dr Allred (cardio) on 04/15. Luma didn't know when next pulm rehab class would start but aware of his referral per his 05/07 has multiple concerns of worsening condition; will contact PCP on 05/09(tuesday) Questions for Future PCP Visit: 03/28 Continue taking Fludrocortisone, Zofran, Maxalt 03/29 weight gain since discharge. Needed or Pending Tests: Yes Following Discharge Instructio: Yes TCM Discharge Criteria Medication Knowledge: 03/28 Emilia is very knowledgable. 04/30 Metoprolol and flourdrocortisone have been /2 went over meds with and she seems quit well versed on what meds he is on and why. Disease Management/Concern/Wha: 04/05 review COPD, CHF s/s 06/08 went over COPD and CHF red and yellow flags 06/16 repeat red and yellw flags for COPD and CHF Transitional Care Comment: 03/22 he was sleeping but review pneumoia, CHF, COPD with who had multiple pertinent questions and interactions 03/26 Unable to contact left message. 03/28 I spoke with Emilia (), Zurdo is not eating well, though gaining weight. I educated on weight gain of 2lbs in a day or 3-5 lbs in a week, to call the MD. He has gained 2 lbs since discharge. I will call tomorrow to check his weight. Discharge orders are very confusing as orders were changed by hand at the time of discharge. We reviewed them, I clarified orders based on discharge note and the explanations given to her at the time of discharge. 03/29 His wieght is up almost 5 pounds since discharge, Her will see Dr Jackson today. 03/29 I spoke with them after the Appt. Labs were drawn, his med list was reviewed, no changes at this time. 04/05 review changes in meds and new orders against MD office note. Reports hes feeling better, eating more, moving better. Will elevate feet more, wears comp socks, monitor for sob/cough, wt q day, report changes to MD for consideration of diuretic if needed 04/13 well til UTI sx with NV started. to md yest, start atb . has f/u with cardiology, still on 1 L. feeling improved 04/22 Sounded very upbeat. Sees Dr Shukla in a week and hopes all the information from Resp, Sand[employer] Dr[employer] Cart Operator and everything will come together." "I am feeling better though!" 04/30 He feels better than before he became ill. No F/U appts in the coming weeks, weights stable. 05/07 multiple concerns. review sit up for drinks/snacks, CDB to prevent pneumonia and early s/s to report floresita if silent aspiration is consideration. review early s/s to report or bring to ER. enc f/u with gastro,uro, pain spec if needed 05/16 He has a barium swallow scheduled for 05/23, Appt with Dr Melchor 06/08, and Dr Shukla 06/13. He is more active now that his back pain is back to normal. 05/26 Left message 05/30 Seeing HH PT 2x a wk and was able to do treadmill for 6 min at a slow pace but that is an improvement for him. Her concern is the bx pain today. Enc her to call [facility] office and let them know about this pain as he has PT tomorrow and may need an xray.. 06/08 Had the bx xray but PT is suggesting an MRI. He is having alot of px he is still trying to move around with them and on his own. Emilia going to call px Dr in [place] and see if they can increase the muscel relaxant. 06/15 unable to contact 06/[address] of chest yesterday. Had not heard results. Main problem now is severe bx pain. Has been talking w Dr Shukla in relation to this increased px. He suggests OP bx therapy. He still isn't eating very well. He did do the Resp test without O2 and did 5 min keeping sats at 92% but bx px got worse and they had to stop. Copies to: JOHANA SHUKLA MD, JOAN Jun 16, 2017 12:39
--- NOTE | 2017-06-25 13:21 | Transitional Care Management ---
Assessment Visit Type: Telephone Visit (06/25 Emilia) Cardiac: WNL Cardiac Comment: 03/28 He is orthostatic at times. 04/05 reports bp's have been low (106/67 yesterday) and MD gilliam metoprolol, no dizzyness. [facility] nurse pointed out tiny edema in ankles. I enc elevation and wearing comp socks that she was not aware of could help 04/13 no edema, sob or wt gain 04/30 No edema 04/22 denies and CP "I'm doing very well. Improving daily" 05/07 Cardioi dc fludrocortisone, SBP 107, has hx of orthostat htn and will be careful when up to avoid fall, no edema. states her wrist bp monitor matched reading at MD office. 05/30 Denies any CP at this time Does have orthostatic BP changes so the PT person is very careful about monitoring before and during exercises. 06/08 Denies any CP- still monitoring BP. "Pretty much staying same" 06/16 unchanged-denies CP 06/25 denies any chest pain Respiratory: WNL Except Respiratory Comment: 03/28 Denies SOB on 3L O2. 04/05 "I don't know what (early signs) of pneumonia are". review this with her and enc, early intervention. denies sob cough. No smoking since hospital dc. says he can wean O2 using oximeter an how he feels. Has PFT on 04/08 04/13 stated yesterday he didn't have PFT results and wanted a 6 min walk test before dc O2. REmains on 1 L prn 04/22 O2 sats have been around 94-98% on RA only wearing O2 at HS 1L" 05/07 low sat readings and wearing O2 at 2 L now but had been just on O2 at hs and with act. denies cough, sop, sputum, temp,edema. Enc breathing exercises as he is not able to be as active due to increased back pain 05/16 Wearing @L O2 at night and PRN. 05/30 still on O2 but will be taking another 6 min O@ test in a couple of weeks and hopes to get off O2 at least during the days.. Breathing OK at this time and denies no SOB w 2L 06/16 Gets SOB woth activity but is having an increase in bx px which causes him to be unable to take deep breaths. There is a Pul Rehab coarse starting June 28 and Emilia didn't think [place] was ready for it d/t bx px but I suggested she call them back and see if he can start and give itchance. 06/25 did not sign up for Pul Rehab as his back pain has been to bad with pain and muscle spams. She feels his resp is improving but he has had these terrible bx spasms that litterly take him to his knees. GI: Nutrition: WNL Except GI Comment: 03/28 Poor appetie. 04/05 reports better appetite, enc hi pro foods. Stated harder to give up pizza and sausage than his cigarettes. Follow SHEFALI diet and 2 L fluids/day. 04/13 reports items that are hi na that they have dc and limit fluids . "I feel like this very difficult but my and I are watching Na+ contact of food and trying to keep it a a low end" 05/07 limited salt and fluids. appetite ok for him. states ST worried about aspiration. enc to eat even his lifesavers upright as his posture is poor due to back problems. has hx of seeing fisher trap for dilating esophagus; last done 2 yr ago. had emesis during noc and thinks he may need f/u. has been instructed to not take zofran by Vazquez 05/30 No nausea at this time. did get ST to come and work with him and he had a speech testing an a barium swallowing test a week ago but they said that was ok and they hope to dc ST as she would like to have 1 less person. 06/16 Cont to not eat real well. She has been trying different protien drinks and he is not real fond of them. 06/25Still not seating well but slightly better. Suggested 6-8 sm meals and enc low Na= and hi in protien-cheeses , meat eggs etc Wt Gain/Loss: WNL Except Weight Comment: 03/28 He has a very poor appetite, and is not eating much, but has gained 2 pounds since discharge. Todays weight, 115.8 pounds. 03/29 Today's weight is 17.8, they called for an appt with Dr Jackson today. 04/05 wt 118-123 at MD visits. Wt 115, 1185, 121, 122 athome. 04/13 wt 123 yest, wt q day in his pajamas 04/22 Weighing every day when I get up. Staying within 12/30 lb up or down. 05/30 still weighting qd and really no changes 06/08 wt daily but wt is down to 117-119 lb. Not eating well. Suggested supplements but he doesn't like them. 06/25 wt has been better- at least not losing as much " Has stabled out but he still doesn't want much to eat" Constipation?: Yes (05/07 using miralax, will take MOM or dulc) : WNL Except Comment: 04/13 has UTI, stared bactrim, enc to drink up to 2 L and of Diarrhea as se, take with food as he already had NV. "I don't seem to have any problems with that end at this time" 05/07 has yeast infect at penis end, using nystat cream and is only a little better. has instrtuct to f/u with Vazquez on 05/09 and will relate his other sx. Musculoskeletal, Exercise: WNL Except Musculoskeletal, Excercise Com: 03/28 He has no stamina, activities wear him out fast. 04/05 using just a cane now. 04/13 cont with [facility] therapy 04/22 still have HH-infact they just left. I feel like I'm getting stronger. 05/07 unable to do therapy due to pain, had massage from PT that helped. ST added to regimin 05/16 Less back pain, working with therapy again. 06/08 still has PT but his back has been hurting alot. But trys hard to work with them and move around.. He went and had a bx XRay. PT showed him some exercises and he waas better Tuesday - yesterday and then when he was getting up he sneezed and heard/.felt his back pop. PT suggested he talk to Dr Shukla about a MRI.Emilia is going to call his pain Dr and see if they can increase the Tizandine by increasing the dosage. 06/16 Pt sis now taking 1 1/2 doseage of Tizandine for muscle relaxant which she thinks is helping a little. D/T the bx px Dr. Shukla has changed his PT to Bx exercisces vs PT. They think he will have to do OP therapy. 06/25 PT continues t work w him for strengthening and balance and he seems to be doing pretty good with that until he gets a spasm. They have been also tryng bx exercises for relief and strengthing Mobility/Falls: [facility] Mobility Comment: 03/28 He moves safely as long as he is not overdoing it. I encouraged him to not do to much at once. 04/05 just a cane unless at night when he use walker. Has PT/OT x 3 more weeks with decreasing frequency 05/07 decreased now due to pain, enc CDB exercises 05/30 working w HH PT and doing pretty well feels like he is getting stronger 06/25 "The bx spasms and px have seemed to get worse this past week and in fact when he tried to get off the cuch today he literally went to his knees. Integumentary: [facility] Feeling of Well Being: [facility] Feeling of Well Being Comment: 03/28 Feels good to be home. 04/05 feels better than he has in several weeks. worried that new edema in legs is in heart and he will be hospitalized Socialization: [facility] Socialization Comment: 03/28 lives at home with his . 06/16 he is becoming more intraverted and wanting to stay at home. arol thinks it might be good that he may have to do OP therapy. Reason I suggested the possiblilty of starting Pul Rehab and seeing if he can do it. If not the next class doesn't start until August. Pain/Management: [facility] Pain/Management Comment: 03/28 Chronic pain issues. 04/05 dc his ambien and decreased xanax. 05/07 will f/u 05/09 with 05/16 Back pain has returned to normal, chronic issue. 05/30 got up this AM with really back pain-"I think I fx something as I heard a pop and now have very bad bx px. Taking narcotics that he has perscribed but not doing much. Enc him to let [facility] office know of this severe px. 06/16 Has increas in bx px to point it is difficult to do PT. Now going to try to swotch to PT for bx px. Scheduled Follow-Up with [facility]: Yes (06/[address] Shukla on 06/13) [facility]: 04/05 MD wants him to do pulm rehab when he is better, ie next class. Sees Dr Allred (cardio) on 04/15. [facility] didn't know when next pulm rehab class would start but aware of his referral per his 05/07 has multiple concerns of worsening condition; will contact PCP on 05/09(tuesday) Questions for Future PCP Visit: 03/28 Continue taking Fludrocortisone, Zofran, Maxalt 03/29 weight gain since discharge. Needed or Pending Tests: Yes Following Discharge Instructio: Yes TCM Discharge Criteria Medication Knowledge: 03/28 Emilia is very knowledgable. 04/30 Metoprolol and flourdrocortisone have been [id number] went over meds with and she seems quit well versed on what meds he is on and why. Disease Management/Concern/Wha: 04/05 review COPD, CHF s/s 06/08 went over COPD and CHF red and yellow flags 06/16 repeat red and yellw flags for COPD and CHF 06/25 went over the red and yellow flags of COPD and CHF Transitional Care Comment: 03/22 he was sleeping but review pneumoia, CHF, COPD with who had multiple pertinent questions and interactions 03/26 Unable to contact left message. 03/28 I spoke with Emilia (), Zurdo is not eating well, though gaining weight. I educated on weight gain of 2lbs in a day or 3-5 lbs in a week, to call the MD. He has gained 2 lbs since discharge. I will call tomorrow to check his weight. Discharge orders are very confusing as orders were changed by hand at the time of discharge. We reviewed them, I clarified orders based on discharge note and the explanations given to her at the time of discharge. 03/29 His wieght is up almost 5 pounds since discharge, Her will see Dr Jackson today. 03/29 I spoke with them after the Appt. Labs were drawn, his med list was reviewed, no changes at this time. 04/05 review changes in meds and new orders against MD office note. Reports hes feeling better, eating more, moving better. Will elevate feet more, wears comp socks, monitor for sob/cough, wt q day, report changes to MD for consideration of diuretic if needed 04/13 well til UTI sx with NV started. to md yest, start atb . has f/u with cardiology, still on 1 L. feeling improved 04/22 Sounded very upbeat. Sees Dr Shukla in a week and hopes all the information from Resp, [employer] and everything will come together." "I am feeling better though!" 04/30 He feels better than before he became ill. No F/U appts in the coming weeks, weights stable. 05/07 multiple concerns. review sit up for drinks/snacks, CDB to prevent pneumonia and early s/s to report floresita if silent aspiration is consideration. review early s/s to report or bring to ER. enc f/u with gastro,uro, pain spec if needed 05/16 He has a barium swallow scheduled for 05/23, Appt with Dr Melchor 06/08, and Dr Shukla 06/13. He is more active now that his back pain is back to normal. 05/26 Left message 05/30 Seeing HH PT 2x a wk and was able to do treadmill for 6 min at a slow pace but that is an improvement for him. Her concern is the bx pain today. Enc her to call [facility] office and let them know about this pain as he has PT tomorrow and may need an xray.. 06/08 Had the bx xray but PT is suggesting an MRI. He is having alot of px he is still trying to move around with them and on his own. Emilia going to call px in [place] and see if they can increase the muscel relaxant. 06/15 unable to contact 06/[address] of chest yesterday. Had not heard results. Main problem now is severe bx pain. Has been talking w Dr Shukla in relation to this increased px. He suggests OP bx therapy. He still isn't eating very well. He did do the Resp test without O2 and did 5 min keeping sats at 92% but bx px got worse and they had to stop. 427 Zurdo thought he was getting stronger and balace was better-had been working w PT and had a chest CT. Has no follow up appts w Dr Shukla but Anuja is very concerned w his continual back px and spasms w no relief this past week. I suggested she call Dr Shukla office and report this and see if he will give her a referral to [facility] to see Dr Jeronimo. Pt and Emilia feel Zurdo needs a ?MRI to see what is going on and what can be done to help this px and spasms. Copies to: JOHANA SHUKLA MD, JOAN Jun 25, 2017 13:21
--- NOTE | 2017-07-02 12:54 | Transitional Care Management ---
Assessment Cardiac: WNL Cardiac Comment: 03/28 He is orthostatic at times. 04/05 reports bp's have been low (106/67 yesterday) and MD gilliam metoprolol, no dizzyness. [facility] nurse pointed out tiny edema in ankles. I enc elevation and wearing comp socks that she was not aware of could help 04/13 no edema, sob or wt gain 04/30 No edema 04/22 denies and CP "I'm doing very well. Improving daily" 05/07 Cardioi dc fludrocortisone, SBP 107, has hx of orthostat htn and will be careful when up to avoid fall, no edema. states her wrist bp monitor matched reading at MD office. 05/30 Denies any CP at this time Does have orthostatic BP changes so the PT person is very careful about monitoring before and during exercises. 06/08 Denies any CP- still monitoring BP. "Pretty much staying same" 06/16 unchanged-denies CP 06/25 denies any chest pain Respiratory: WNL Except Respiratory Comment: 03/28 Denies SOB on 3L O2. 04/05 "I don't know what (early signs) of pneumonia are". review this with her and enc, early intervention. denies sob cough. No smoking since hospital dc. says he can wean O2 using oximeter an how he feels. Has PFT on 04/08 04/13 stated yesterday he didn't have PFT results and wanted a 6 min walk test before dc O2. REmains on 1 L prn 04/22 O2 sats have been around 94-98% on RA only wearing O2 at HS 1L" 05/07 low sat readings and wearing O2 at 2 L now but had been just on O2 at hs and with act. denies cough, sop, sputum, temp,edema. Enc breathing exercises as he is not able to be as active due to increased back pain 05/16 Wearing @L O2 at night and PRN. 05/30 still on O2 but will be taking another 6 min O@ test in a couple of weeks and hopes to get off O2 at least during the days.. Breathing OK at this time and denies no SOB w 2L 06/16 Gets SOB woth activity but is having an increase in bx px which causes him to be unable to take deep breaths. There is a Pul Rehab coarse starting June 28 and Emilia didn't think [place] was ready for it d/t bx px but I suggested she call them back and see if he can start and give itchance. 06/25 did not sign up for Pul Rehab as his back pain has been to bad with pain and muscle spams. She feels his resp is improving but he has had these terrible bx spasms that litterly take him to his knees. GI: Nutrition: WNL Except GI Comment: 03/28 Poor appetie. 04/05 reports better appetite, enc hi pro foods. Stated harder to give up pizza and sausage than his cigarettes. Follow SHEFALI diet and 2 L fluids/day. 04/13 reports items that are hi na that they have dc and limit fluids 04.22 "I feel like this very difficult but my and I are watching Na+ contact of food and trying to keep it a a low end" 05/07 limited salt and fluids. appetite ok for him. states ST worried about aspiration. enc to eat even his lifesavers upright as his posture is poor due to back problems. has hx of seeing can solderer for dilating esophagus; last done 2 yr ago. had emesis during noc and thinks he may need f/u. has been instructed to not take zofran by V[facility] 05/30 No nausea at this time. HH did get ST to come and work with him and he had a speech testing an a barium swallowing test a week ago but they said that was ok and they hope to dc ST as she would like to have 1 less person. 06/16 Cont to not eat real well. She has been trying different protien drinks and he is not real fond of them. 06/25Still not seating well but slightly better. Suggested 6-8 sm meals and enc low Na= and hi in protien-cheeses , meat eggs etc Wt Gain/Loss: WNL Except Weight Comment: 03/28 He has a very poor appetite, and is not eating much, but has gained 2 pounds since discharge. Todays weight, 115.8 pounds. 03/29 Today's weight is 17.8, they called for an appt with Dr Jackson today. 04/05 wt 118-123 at MD visits. Wt 115, 1185, 121, 122 athome. 04/13 wt 123 yest, wt q day in his [facility] 04/22 Weighing every day when I get up. Staying within 12/30 lb up or down. 05/30 still weighting qd and really no changes 06/08 wt daily but wt is down to 117-119 lb. Not eating well. Suggested supplements but he doesn't like them. 06/25 wt has been better- at least not losing as much " Has stabled out but he still doesn't want much to eat" Constipation?: Yes (05/07 using miralax, will take MOM or dulc) : WNL Except Comment: 04/13 has UTI, stared bactrim, enc to drink up to 2 L and of Diarrhea as se, take with food as he already had NV. "I don't seem to have any problems with that end at this time" 05/07 has yeast infect at penis end, using nystat cream and is only a little better. has instrtuct to f/u with Vazquez on 05/09 and will relate his other sx. Musculoskeletal, Exercise: WNL Except Musculoskeletal, Excercise Com: 03/28 He has no stamina, activities wear him out fast. 04/05 using just a cane now. 04/13 cont with [facility] therapy 04/22 still have HH-infact they just left. I feel like I'm getting stronger. 05/07 unable to do therapy due to pain, had massage from PT that helped. ST added to regimin 05/16 Less back pain, working with therapy again. 06/08 still has PT but his back has been hurting alot. But trys hard to work with them and move around.. He went and had a bx XRay. PT showed him some exercises and he waas better Tuesday - yesterday and then when he was getting up he sneezed and heard/.felt his back pop. PT suggested he talk to Dr Shukla about a MRI.Emilia is going to call his pain Dr and see if they can increase the Tizandine by increasing the dosage. 06/16 Pt sis now taking 1 1/2 doseage of Tizandine for muscle relaxant which she thinks is helping a little. D/T the bx px Dr. Shukla has changed his PT to Bx exercisces vs PT. They think he will have to do OP therapy. 06/25 PT continues t work w him for strengthening and balance and he seems to be doing pretty good with that until he gets a spasm. They have been also tryng bx exercises for relief and strengthing Mobility/Falls: [facility] Mobility Comment: 03/28 He moves safely as long as he is not overdoing it. I encouraged him to not do to much at once. 04/05 just a cane unless at night when he use walker. Has PT/OT x 3 more weeks with decreasing frequency 05/07 decreased now due to pain, enc CDB exercises 05/30 working w PT and doing pretty well feels like he is getting stronger 06/25 "The bx spasms and px have seemed to get worse this past week and in fact when he tried to get off the cuch today he literally went to his knees. Integumentary: [facility] Feeling of Well Being: [facility] Feeling of Well Being Comment: 03/28 Feels good to be home. 04/05 feels better than he has in several weeks. worried that new edema in legs is in heart and he will be hospitalized Socialization: [facility] Socialization Comment: 03/28 lives at home with his . 06/16 he is becoming more intraverted and wanting to stay at home. arol thinks it might be good that he may have to do OP therapy. Reason I suggested the possiblilty of starting Pul Rehab and seeing if he can do it. If not the next class doesn't start until August. Pain/Management: [facility] Pain/Management Comment: 03/28 Chronic pain issues. 04/05 dc his ambien and decreased xanax. 05/07 will f/u 05/09 with 05/16 Back pain has returned to normal, chronic issue. 05/30 got up this AM with really back pain-"I think I fx something as I heard a pop and now have very bad bx px. Taking narcotics that he has perscribed but not doing much. Enc him to let [facility] office know of this severe px. 06/16 Has increas in bx px to point it is difficult to do PT. Now going to try to swotch to PT for bx px. Scheduled Follow-Up with [facility]: Yes (06/[address] Shukla on 06/13) [facility]: 2/6 MD wants him to do pulm rehab when he is better, ie next class. Sees Dr Allred (cardio) on 04/15. [facility] didn't know when next pulm rehab class would start but aware of his referral per his 05/07 has multiple concerns of worsening condition; will contact PCP on 05/09(tuesday) Questions for Future PCP Visit: 03/28 Continue taking Fludrocortisone, Zofran, Maxalt 03/29 weight gain since discharge. Needed or Pending Tests: Yes Following Discharge Instructio: Yes TCM Discharge Criteria Medication Knowledge: 03/28 Emilia is very knowledgable. 04/30 Metoprolol and flourdrocortisone have been [id number] went over meds with and she seems quit well versed on what meds he is on and why. Disease Management/Concern/Wha: 04/05 review COPD, CHF s/s 06/08 went over COPD and CHF red and yellow flags 06/16 repeat red and yellw flags for COPD and CHF 06/25 went over the red and yellow flags of COPD and CHF Transitional Care Comment: 03/22 he was sleeping but review pneumoia, CHF, COPD with who had multiple pertinent questions and interactions 03/26 Unable to contact left message. 03/28 I spoke with Emilia (), [place] is not eating well, though gaining weight. I educated on weight gain of 2lbs in a day or 3-5 lbs in a week, to call the MD. He has gained 2 lbs since discharge. I will call tomorrow to check his weight. Discharge orders are very confusing as orders were changed by hand at the time of discharge. We reviewed them, I clarified orders based on discharge note and the explanations given to her at the time of discharge. 03/29 His wieght is up almost 5 pounds since discharge, Her will see Dr Jackson today. 03/29 I spoke with them after the Appt. Labs were drawn, his med list was reviewed, no changes at this time. 04/05 review changes in meds and new orders against MD office note. Reports hes feeling better, eating more, moving better. Will elevate feet more, wears comp socks, monitor for sob/cough, wt q day, report changes to MD for consideration of diuretic if needed 04/13 well til UTI sx with NV started. to md yest, start atb . has f/u with cardiology, still on 1 L. feeling improved 04/22 Sounded very upbeat. Sees Dr Shukla in a week and hopes all the information from Resp, [employer] and everything will come together." "I am feeling better though!" 04/30 He feels better than before he became ill. No F/U appts in the coming weeks, weights stable. 05/07 multiple concerns. review sit up for drinks/snacks, CDB to prevent pneumonia and early s/s to report floresita if silent aspiration is consideration. review early s/s to report or bring to ER. enc f/u with gastro,uro, pain spec if needed 05/16 He has a barium swallow scheduled for 05/23, Appt with Dr Melchor 06/08, and Dr Shukla 06/13. He is more active now that his back pain is back to normal. 05/26 Left message 05/30 Seeing HH PT 2x a wk and was able to do treadmill for 6 min at a slow pace but that is an improvement for him. Her concern is the bx pain today. Enc her to call [facility] office and let them know about this pain as he has PT tomorrow and may need an xray.. 06/08 Had the bx xray but PT is suggesting an MRI. He is having alot of px he is still trying to move around with them and on his own. Emilia going to call px in [place] and see if they can increase the muscel relaxant. 06/15 unable to contact 06/[address] of chest yesterday. Had not heard results. Main problem now is severe bx pain. Has been talking w Dr Shukla in relation to this increased px. He suggests OP bx therapy. He still isn't eating very well. He did do the Resp test without O2 and did 5 min keeping sats at 92% but bx px got worse and they had to stop. 427 [facility]do thought he was getting stronger and balace was better-had been working w PT and had a chest CT. Has no follow up appts w Dr Shukla but Anuja is very concerned w his continual back px and spasms w no relief this past week. I suggested she call Dr Shukla office and report this and see if he will give her a referral to [facility] to see Dr Jeronimo. Pt and Emilia feel Zurdo needs a ?MRI to see what is going on and what can be done to help this px and spasms. 07/02 Left message. DELLA LAUGHLIN July 02, 2017 12:54
--- NOTE | 2017-07-08 13:07 | Transitional Care Management ---
Assessment Cardiac: WNL Cardiac Comment: 03/28 He is orthostatic at times. 04/05 reports bp's have been low (106/67 yesterday) and MD gilliam metoprolol, no dizzyness. [facility] nurse pointed out tiny edema in ankles. I enc elevation and wearing comp socks that she was not aware of could help 04/13 no edema, sob or wt gain 04/30 No edema 04/22 denies and CP "I'm doing very well. Improving daily" 05/07 Cardioi dc fludrocortisone, SBP 107, has hx of orthostat htn and will be careful when up to avoid fall, no edema. states her wrist bp monitor matched reading at MD office. 05/30 Denies any CP at this time Does have orthostatic BP changes so the PT person is very careful about monitoring before and during exercises. 06/08 Denies any CP- still monitoring BP. "Pretty much staying same" 06/16 unchanged-denies CP 06/25 denies any chest pain Respiratory: WNL Except Respiratory Comment: 03/28 Denies SOB on 3L O2. 04/05 "I don't know what (early signs) of pneumonia are". review this with her and enc, early intervention. denies sob cough. No smoking since hospital dc. says he can wean O2 using oximeter an how he feels. Has PFT on 04/08 04/13 stated yesterday he didn't have PFT results and wanted a 6 min walk test before dc O2. REmains on 1 L prn 04/22 O2 sats have been around 94-98% on RA only wearing O2 at HS 1L" 05/07 low sat readings and wearing O2 at 2 L now but had been just on O2 at hs and with act. denies cough, sop, sputum, temp,edema. Enc breathing exercises as he is not able to be as active due to increased back pain 05/16 Wearing @L O2 at night and PRN. 05/30 still on O2 but will be taking another 6 min O@ test in a couple of weeks and hopes to get off O2 at least during the days.. Breathing OK at this time and denies no SOB w 2L 06/16 Gets SOB woth activity but is having an increase in bx px which causes him to be unable to take deep breaths. There is a Pul Rehab coarse starting June 28 and Emilia didn't think Zurdo was ready for it d/t bx px but I suggested she call them back and see if he can start and give itchance. 06/25 did not sign up for Pul Rehab as his back pain has been to bad with pain and muscle spams. She feels his resp is improving but he has had these terrible bx spasms that litterly take him to his knees. GI: Nutrition: WNL Except GI Comment: 03/28 Poor appetie. 04/05 reports better appetite, enc hi pro foods. Stated harder to give up pizza and sausage than his cigarettes. Follow SHEFALI diet and 2 L fluids/day. 04/13 reports items that are hi na that they have dc and limit fluids 04.22 "I feel like this very difficult but my and I are watching Na+ contact of food and trying to keep it a a low end" 05/07 limited salt and fluids. appetite ok for him. states ST worried about aspiration. enc to eat even his lifesavers upright as his posture is poor due to back problems. 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 had emesis during noc and thinks he may need f/u. has been instructed to not take zofran by [facility] 05/30 No nausea at this time. HH did get ST to come and work with him and he had a speech testing an a barium swallowing test a week ago but they said that was ok and they hope to dc ST as she would like to have 1 less person. 06/16 Cont to not eat real well. She has been trying different protien drinks and he is not real fond of them. 06/25Still not seating well but slightly better. Suggested 6-8 sm meals and enc low Na= and hi in protien-cheeses , meat eggs etc Wt Gain/Loss: WNL Except Weight Comment: 03/28 He has a very poor appetite, and is not eating much, but has gained 2 pounds since discharge. Todays weight, 115.8 pounds. 03/29 Today's weight is 17.8, they called for an appt with Dr Jackson today. 04/05 wt 118-123 at MD visits. Wt 115, 1185, 121, 122 athome. 04/13 wt 123 yest, wt q day in [facility] 04/22 Weighing every day when I get up. Staying within 12/30 lb up or down. 05/30 still weighting qd and really no changes 06/08 wt daily but wt is down to 117-119 lb. Not eating well. Suggested supplements but he doesn't like them. 06/25 wt has been better- at least not losing as much " Has stabled out but he still doesn't want much to eat" Constipation?: Yes (05/07 using miralax, will take MOM or dulc) : WNL Except Comment: 04/13 has UTI, stared bactrim, enc to drink up to 2 L and of Diarrhea as se, take with food as he already had NV. "I don't seem to have any problems with that end at this time" 05/07 has yeast infect at penis end, using nystat cream and is only a little better. has instrtuct to f/u with [facility] on 05/09 and will relate his other sx. Musculoskeletal, Exercise: WNL Except Musculoskeletal, Excercise Com: 03/28 He has no stamina, activities wear him out fast. 04/05 using just a cane now. 04/13 cont with [facility] therapy 04/22 still have HH-infact they just left. I feel like I'm getting stronger. 05/07 unable to do therapy due to pain, had massage from PT that helped. ST added to regimin 05/16 Less back pain, working with therapy again. 06/08 still has PT but his back has been hurting alot. But trys hard to work with them and move around.. He went and had a bx XRay. PT showed him some exercises and he waas better Tuesday - yesterday and then when he was getting up he sneezed and heard/.felt his back pop. PT suggested he talk to Dr Shukla about a MRI.Emilia is going to call his pain Dr and see if they can increase the Tizandine by increasing the dosage. 06/16 Pt sis now taking 1 1/2 doseage of Tizandine for muscle relaxant which she thinks is helping a little. D/T the bx px Dr. Shukla has changed his PT to Bx exercisces vs PT. They think he will have to do OP therapy. 06/25 PT continues t work w him for strengthening and balance and he seems to be doing pretty good with that until he gets a spasm. They have been also tryng bx exercises for relief and strengthing Mobility/Falls: [facility] Mobility Comment: 03/28 He moves safely as long as he is not overdoing it. I encouraged him to not do to much at once. 04/05 just a cane unless at night when he use walker. Has PT/OT x 3 more weeks with decreasing frequency 05/07 decreased now due to pain, enc CDB exercises 05/30 working w PT and doing pretty well feels like he is getting stronger 06/25 "The bx spasms and px have seemed to get worse this past week and in fact when he tried to get off the cuch today he literally went to his knees. Integumentary: [facility] Feeling of Well Being: [facility] Feeling of Well Being Comment: 03/28 Feels good to be home. 04/05 feels better than he has in several weeks. worried that new edema in legs is in heart and he will be hospitalized Socialization: [facility] Socialization Comment: 03/28 lives at home with his . 06/16 he is becoming more intraverted and wanting to stay at home. arol thinks it might be good that he may have to do OP therapy. Reason I suggested the possiblilty of starting Pul Rehab and seeing if he can do it. If not the next class doesn't start until August. Pain/Management: [facility] Pain/Management Comment: 03/28 Chronic pain issues. 04/05 dc his ambien and decreased xanax. 05/07 will f/u 05/09 with 05/16 Back pain has returned to normal, chronic issue. 05/30 got up this AM with really back pain-"I think I fx something as I heard a pop and now have very bad bx px. Taking narcotics that he has perscribed but not doing much. Enc him to let [facility] office know of this severe px. 06/16 Has increas in bx px to point it is difficult to do PT. Now going to try to swotch to PT for bx px. Scheduled Follow-Up with [facility]: Yes (06/[address] Shukla on 06/13) Community Resources/[facility]HC: 2/6 MD wants him to do pulm rehab when he is better, ie next class. Sees Dr Allred (cardio) on 04/15. Luma didn't know when next pulm rehab class would start but aware of his referral per his 05/07 has multiple concerns of worsening condition; will contact PCP on 05/09(tuesday) Questions for Future PCP Visit: 03/28 Continue taking Fludrocortisone, Zofran, Maxalt 03/29 weight gain since discharge. Needed or Pending Tests: Yes Following Discharge Instructio: Yes TCM Discharge Criteria Medication Knowledge: 03/28 Emilia is very knowledgable. 04/30 Metoprolol and flourdrocortisone have been [id number] went over meds with and she seems quit well versed on what meds he is on and why. Disease Management/Concern/Wha: 04/05 review COPD, CHF s/s 06/08 went over COPD and CHF red and yellow flags 06/16 repeat red and yellw flags for COPD and CHF 06/25 went over the red and yellow flags of COPD and CHF Transitional Care Comment: 03/22 he was sleeping but review pneumoia, CHF, COPD with who had multiple pertinent questions and interactions 03/26 Unable to contact left message. 03/28 I spoke with Emilia (), Zurdo is not eating well, though gaining weight. I educated on weight gain of 2lbs in a day or 3-5 lbs in a week, to call the MD. He has gained 2 lbs since discharge. I will call tomorrow to check his weight. Discharge orders are very confusing as orders were changed by hand at the time of discharge. We reviewed them, I clarified orders based on discharge note and the explanations given to her at the time of discharge. 03/29 His wieght is up almost 5 pounds since discharge, Her will see Dr Jackson today. 03/29 I spoke with them after the Appt. Labs were drawn, his med list was reviewed, no changes at this time. 04/05 review changes in meds and new orders against MD office note. Reports hes feeling better, eating more, moving better. Will elevate feet more, wears comp socks, monitor for sob/cough, wt q day, report changes to MD for consideration of diuretic if needed 04/13 well til UTI sx with NV started. to md yest, start atb . has f/u with cardiology, still on 1 L. feeling improved 04/22 Sounded very upbeat. Sees Dr Shukla in a week and hopes all the information from Resp, [facility] and everything will come together." "I am feeling better though!" 04/30 He feels better than before he became ill. No F/U appts in the coming weeks, weights stable. 05/07 multiple concerns. review sit up for drinks/snacks, CDB to prevent pneumonia and early s/s to report floresita if silent aspiration is consideration. review early s/s to report or bring to ER. enc f/u with gastro,uro, pain spec if needed 05/16 He has a barium swallow scheduled for 05/23, Appt with Dr Melchor 06/08, and Dr Shukla 06/13. He is more active now that his back pain is back to normal. 05/26 Left message 05/30 Seeing HH PT 2x a wk and was able to do treadmill for 6 min at a slow pace but that is an improvement for him. Her concern is the bx pain today. Enc her to call [facility] office and let them know about this pain as he has PT tomorrow and may need an xray.. 06/08 Had the bx xray but PT is suggesting an MRI. He is having alot of px he is still trying to move around with them and on his own. Emilia going to call px in [place] and see if they can increase the muscel relaxant. 06/15 unable to contact 06/[address] of chest yesterday. Had not heard results. Main problem now is severe bx pain. Has been talking w Dr Shukla in relation to this increased px. He suggests OP bx therapy. He still isn't eating very well. He did do the Resp test without O2 and did 5 min keeping sats at 92% but bx px got worse and they had to stop. 427 Zurdo thought he was getting stronger and balace was better-had been working w PT and had a chest CT. Has no follow up appts w Dr Shukla but Anuja is very concerned w his continual back px and spasms w no relief this past week. I suggested she call Dr Shukla office and report this and see if he will give her a referral to [facility] to see Dr Jeronimo. Pt and Emilia feel Zurdo needs a ?MRI to see what is going on and what can be done to help this px and spasms. 07/02 Left [id number] Unable to contact-left message. Will DC from program as he has remained status quo since DC. MARIA LUISA BROOKS July 08, 2017 13:07
== END 2017-07-11 08:00 | disposition home or self-care (01) ==
LOC: TCM 07:15
PROVIDERS: ATTEND Nurse Practitioner
DX: Z02.9 Encounter for administrative examinations, unspecified (principal)

== ENCOUNTER → 2017-03-29 | Outpatient (CLI) | payer MEDICARE ==
[2017-03-19 13:56] VITALS: BMI 20.4
[~2017-03-29] MED LIST changes: +CEF300 PO; +METO25TA23 PO
== END ==
LOC: LAB 13:43
PROVIDERS: ATTEND Nurse Practitioner Primary Care
DX: E03.9 Hypothyroidism, unspecified (principal); I50.9 Heart failure, unspecified
CPT/HCPCS: 36415; 82040; 82247; 82310; 82374; 82435; 82565; 82947; 83880; 84075; 84132; 84155; 84295; 84443; 84450; 84460; 84520

== ENCOUNTER → 2017-04-08 | Outpatient (CLI) | payer MEDICARE ==
[2017-03-19 13:56] VITALS: BMI 20.4
[~2017-04-08] MED LIST changes: +NYST15CR32 TP; +SULF-198 PO
[2017-04-08 08:46] LABS: PLATELET COUNT, AUTOMATED 172 K/uL (150-450)
[2017-04-08 09:06] LABS: LDL CHOLESTEROL 37 mg/dl
== END ==
LOC: RESP 04:04
PROVIDERS: ATTEND Internal Medicine
DX: Z12.5 Encounter for screening for malignant neoplasm of prostate (principal); J44.9 Chronic obstructive pulmonary disease, unspecified; J15.9 Unspecified bacterial pneumonia; I25.10 Atherosclerotic heart disease of native coronary artery without angina pectoris; I50.9 Heart failure, unspecified; I65.29 Occlusion and stenosis of unspecified carotid artery; E03.9 Hypothyroidism, unspecified; M81.8 Other osteoporosis without current pathological fracture
CPT/HCPCS: 36415; 81001; 82306; 83880; 83970; 84439; 84443; 85025; 94060; 94726; 94729; G0103; 82040; 82247; 82310; 82374; 82435; 82465; 82565; 82947; 83718; 84075; 84132; 84153; 84155; 84295; 84450; 84460; 84478; 84520

== ENCOUNTER → 2017-04-12 | Outpatient (CLI) | payer MEDICARE ==
[2017-03-19 13:56] VITALS: BMI 20.4
[~2017-04-12] MED LIST changes: -NYST15CR32 TP
== END ==
LOC: LAB 09:12
PROVIDERS: ATTEND Internal Medicine
DX: R30.0 Dysuria (principal)
CPT/HCPCS: 81001

== ENCOUNTER → 2017-04-28 | Outpatient (CLI) | payer MEDICARE ==
[2017-03-19 13:56] VITALS: BMI 20.4
[~2017-04-28] MED LIST changes: +NYST15CR32 TP
== END ==
LOC: LAB 12:44
PROVIDERS: ATTEND Internal Medicine
DX: R30.0 Dysuria (principal); B37.41 Candidal cystitis and urethritis
CPT/HCPCS: 81001; 87088

== ENCOUNTER → 2017-05-23 | Outpatient (CLI) | payer MEDICARE ==
[2017-03-19 13:56] VITALS: BMI 20.4
[~2017-05-23] MED LIST changes: +BARIUM SULFATE 148 GM POWDER ONE; +BARIUM SULFATE 240 ML ORAL SUS (NECTAR) ONE
--- NOTE | 2017-05-23 15:14 | RADIOLOGY IMAGING REPORT ---
FACILITY: [facility] PATIENT NAME: Zurdo Munoz : 1945 MR: [id number] V: [id number] EXAM DATE: ORDERING PHYSICIAN: JOHANA TORRES TECHNOLOGIST: Location: [facility] [place] Patient: Zurdo Munoz : 1945 Visit/Account:[id number] Date of Sevice: 05/23/2017 Modified barium swallow, complete procedure. HISTORY: Reflux esophagitis. COMPARISON: Cervical spine radiographs 10/06/2015 (report only, prior images not available). The procedure was performed together with the speech pathologist and dairy manufacturing technologist under my personal supervision. The patient drank thin barium, barium solids, and thick barium. Fluoroscopy and spot images were obtained in the lateral and AP projections. FINDINGS: The patient is edentulous. The barium bolus is propelled to the back of the tongue and then swallowe d through the lateral food channels. Minimal pooling is present in the valleculae and piriform sinus es, clearing with additional swallows. Trace laryngeal penetration occurs during swallowing of thin liquids. Cricopharyngeal opening is normal. A 1.5 cm density is present in the right neck probably representing a calcified thyroid nodule, also mentioned on the prior report. FLUOROSCOPY TIME: 2.9 minutes. DOSE: DAP was 214.44 microGy*m2. IMPRESSION: Trace laryngeal penetration during swallowing of thin liquids. Minimal hypopharyngeal dysphagia. Report Dictated By: Joel Holley MD at 05/23/2017 2:58 PM Report E-Signed By: Joel Holley MD at 05/23/2017 3:09 PM WSN:[email or web address]
--- NOTE | 2017-05-23 15:17 | SLP MODIFIED BARIUM SWALLOW ---
[*]Speech Language Pathology Modified Barium Swallow Evaluation Report Date of Evaluation: 05/23/2017 Patient Name: Zurdo Munoz Patient : 1945 Physician: Christiano Shukla MD Clinician: Cristel Reagan M.S., [facility]FIRESTOPPER TECHNICIAN BACKGROUND The patient is a 72 yr old male referred for an MBS to assess swallow structure and function as indicated by suspected s/s of pharyngeal dysphagia per home health FIRESTOPPER TECHNICIAN report. Pt without reports of difficulty swallowing any texture or liquid, no coughing during or after swallowing. Oxygen Supplementation: No Level of Consciousness: Non altered Cognitive/Linguistic: WNL Orientation: x4 Language: -expressive: nonaphasic -receptive: nonaphasic Speech: -non-apraxic -non-dysarthric Voice -Dysphonia: none -Nasal emission: No -Hypernasality: No -Wet Vocal Quality: No Non-verbal Oral Structure and Function: WNL Pain with Swallow: Denies. MODIFIED BARIUM SWALLOW In conjunction with radiology, lateral view with trials of the following consistencies: thin barium liquid (noncarbonated, single and consecutive sips), barium marked pureed, mechanical soft, regular food consistencies, mixed consistencies, and a 1cm barium pill. ORAL STAGE Thin Liquids: no evidence of dysphagia . WNL Pureed Foods: no evidence of dysphagia . WNL Mechanical Soft Foods: no evidence of dysphagia . WNL Regular Foods: no evidence of dysphagia . WNL. PHARYNGEAL STAGE Thin Liquid: mild pharyngeal dysphagia characterized by delayed swallow onset to the level of the valleculae w/ suspected age-related reduction in hyolaryngeal movement and subsequent reduction in epiglottic retraction/airway protection. Score of 2 on Penetration/Aspiration Scale*: Material enters the airway, but remains above the vocal folds and is ejected from the airway. Pureed Food: no evidence of dysphagia WNL. Score of 1 on Penetration/ Aspiration Scale*: Material does not enter airway. Mechanical Soft Foods: no evidence of dysphagia WNL. Score of 1 on Penetration/Aspiration Scale*: Material does not enter airway. Mixed Food Consistency: no evidence of dysphagia WNL. Score of 1 on Penetration /Aspiration Scale*: Material does not enter airway. Regular Food Consistency: no evidence of dysphagia WNL. Score of 1 on Penetration/Aspiration Scale*: Material does not enter airway. Pill: no evidence of dysphagia WNL. Score of 1 on Penetration/Aspiration Scale* : Material does not enter airway. *(Elieser et al. 1996) ESOPHAGEAL STAGE Peristaltic movement appears to be WNL Cervical Esophagus: Materials witnessed clearing from cervical esophagus WNL. Thoracic Esophagus: Not witnessed. KARTHIK: Non witnessed. Laryngopharyngeal Reflux (LPR) None witnessed. BARIUM PILL: 1cm barium pill taken with thin liquids. No oral, pharyngeal, or esophageal dysphagia witnessed. SUMMARY Aspiration Risk: Low. No oral stage dysphagia witnessed. Mild pharyngeal dysphagia w/ delayed swallow onset and laryngeal penetration (material remained above the vocal folds, and was successfully cleared from airway). Pt. reported experiencing no symptoms of dysphagia during evaluation. Of note, pharyngeal anatomical deviations were observed during swallow study evidenced by darkening near the tracheal rings and lateral to the trachea. Radiologist attributed darkening to suspected age-related tracheal ring calcification and possible lymph node or thyroid calcification. 1.Dysphagia Severity Rating Scale (Gramigna, 2006; Love et. al., 1990): 0 Normal swallow mechanism 2.No modification in consistency of diet is indicated. RECOMMENDATIONS 1. Speech Therapy: Continue home health services per discretion of home health speech therapist. Thank you for this referral. Please call [phone] to contact the FIRESTOPPER TECHNICIAN. Cristel Reagan M.S., [facility]FIRESTOPPER TECHNICIAN MTDD
== END ==
LOC: RAD 04:24
PROVIDERS: ATTEND Internal Medicine
DX: J38.7 Other diseases of larynx (principal); R13.19 Other dysphagia
CPT/HCPCS: 74230

== ENCOUNTER → 2017-06-01 | Outpatient (CLI) | payer MEDICARE ==
[2017-03-19 13:56] VITALS: BMI 20.4
[~2017-06-01] MED LIST changes: -BARIUM SULFATE 148 GM POWDER ONE; -BARIUM SULFATE 240 ML ORAL SUS (NECTAR) ONE
--- NOTE | 2017-06-01 09:40 | RADIOLOGY IMAGING REPORT ---
[place] [facility] [place] NAME: Zurdo Munoz : 1945 MR: [id number] V: [id number] EXAM DATE: ORDERING PHYSICIAN: JOHANA TORRES TECHNOLOGIST: Location: [facility] [place] Patient: Zurdo Munoz : 1945 Visit/Account:[id number] Date of Sevice: 06/01/2017 LUMBAR SPINE 2 OR 3 VIEW HISTORY: History of compression fractures. Chronic low back pain. Additional history: None COMPARISON: Comparison made to CT lumbar spine performed 10/06/2015. There are multiple compression f ractures through the lumbar spine which are unchanged from the previous study. They are as follows: L1-advanced compression fracture (vertebra plana) with 90% loss of height anteriorly and 50% loss of height posteriorly. L2-moderate compression fracture most advanced in the middle of the vertebrae with 50% loss of height . L3-normal L4-mild concavities of both the superior and inferior endplates compatible with Schmorl's nodes (intr aventricular disc herniation) L5-normal Disc space height is well-maintained at all levels. Moderately advanced calcific plaque is seen through the aorta and common iliac arteries. There is al so extensive calcific plaque seen at the origin of the SMA and splenic artery. FINDINGS: Multilevel lumbar compression fractures as detailed above which are old and appears stable from 2016. Advanced vasculopathy. IMPRESSION: Report Dictated By: Gaston Healy MD at 06/01/2017 9:17 AM Report E-Signed By: Gaston Healy MD at 06/01/2017 9:35 AM WSN:[id number]
== END ==
LOC: RAD 08:00
PROVIDERS: ATTEND Internal Medicine
DX: M48.56XS Collapsed vertebra, not elsewhere classified, lumbar region, sequela of fracture (principal); I25.10 Atherosclerotic heart disease of native coronary artery without angina pectoris
CPT/HCPCS: 72100

== ENCOUNTER → 2017-06-15 | Outpatient (CLI) | payer MEDICARE ==
[2017-03-19 13:56] VITALS: BMI 20.4
[~2017-06-15] MED LIST changes: +ALPR-461 PO; +DEN60I SUBQ; +PNEI IJ
--- NOTE | 2017-06-15 14:32 | RADIOLOGY IMAGING REPORT ---
FACILITY: [facility] PATIENT NAME: Zurdo Munoz : 1945 MR: [id number] V: [id number] EXAM DATE: ORDERING PHYSICIAN: JOHANA TORRES TECHNOLOGIST: Location: [facility] Patient: Zurdo Munoz : 1945 Visit/Account:[id number] Date of Sevice: 06/15/2017 CHEST W/O CONTRAST History: mediastinal lymph nodes enlarged TECHNIQUE: Contiguous axial images were performed through the chest to the level of the adrenal gla nds. No IV contrast was administered. Coronal and sagittal reformatting was also performed. Dose Lowe ring Technique One of the following dose optimization techniques was utilized in the performance of this exam: Autom ated exposure control; adjustment of the mA and/or kV according to the patient's size; or use of an i terative reconstruction technique. Specific details can be referenced in the facility's radiology C T exam operational policy. COMPARISON STUDIES: March 18, 2017. Lungs / Pleura: Moderate centrilobular emphysema again seen throughout the lungs with an upper lobe predominance. Previously noted bilateral pleural effusions and airspace consolidation lower lobes h ave resolved in the interim.. Previously noted 5 mm noncalcified nodule in the right lower lobe appears unchanged and is best seen on image 83 of series 3.. Additional 9 x 5 mm irregular nodule in the right middle lobe now appears more scarlike and is best s een on image 95 of series 3. Coarse linear stranding in the medial right middle lobe has remained st able mild linear scarring is also present in the lung bases. Mediastinum/nodes: The mediastinal structures not ideally evaluated due to lack of intravenous contr ast. There has been an overall decrease in the previously described mediastinal adenopathy. The pre viously noted subcarinal lymph node is no longer seen. The previously noted 18 x 11 mm precarinal ly mph node is decreased in size and now measures 12 x 9 mm best seen on image 58 of series 2 Heart and vessels: Prominent coronary artery calcifications again noted. Moderate atherosclerotic c hanges in the nonaneurysmally dilated thoracic aorta and branch vessels. Previously described modera te narrowing at the origin of the left subclavian artery is again seen Musculoskeletal / Body wall: Multiple old compression fractures in the thoracic spine again seen. There is a levoconvex scoliosis Upper abdomen: Postsurgical changes from a prior cholecystectomy extensive vascular calcifications in the visualized portion of the abdominal aorta and branch vessels are nonobstructing calculi in the right renal collecting system Incidentally noted is the peripherally calcified 17 mm nodule in the right lobe the thyroid gland IMPRESSION: Interval resolution of the bilateral pleural effusions and bilateral airspace consolidation the lower lobes Moderate centrilobular emphysema throughout the lungs with an upper lobe predominance Previous noted 5 mm noncalcified nodule right lower lobe appears unchanged. The current Fleischner S ociety recommendations are as follows For nodules less than 6 mm in a low risk patient (minimal or ab sent smoking history, no history of malignancy), no routine followup is recommended. In a high risk p atient (smoking or malignancy history), optional 12 month followup can be obtained. Previously noted 9.5 mm irregular nodule right middle lobe now appears more scarlike By basilar scarring Interval decrease in the mediastinal adenopathy Additional chronic findings as described Report Dictated By: Ratna Hale MD at 06/15/2017 2:14 PM Report E-Signed By: Ratna Hale MD at 06/15/2017 2:28 PM WSN:[id number]
== END ==
LOC: CT 01:22
PROVIDERS: ATTEND Internal Medicine
DX: R91.8 Other nonspecific abnormal finding of lung field (principal)
CPT/HCPCS: 71250

== ENCOUNTER → 2017-10-06 | Outpatient (CLI) | payer MEDICARE ==
[2017-03-19 13:56] VITALS: BMI 20.4
[~2017-10-06] MED LIST changes: -CLON-303 PO; +CLON-304 PO; +MIRT-27 PO; +PROM-110 PO
[2017-10-06 09:00] LABS: PLATELET COUNT, AUTOMATED 167 K/uL (150-450)
[2017-10-06 09:18] LABS: LDL CHOLESTEROL 16 mg/dl
== END ==
LOC: LAB 08:34
PROVIDERS: ATTEND Internal Medicine
DX: I25.10 Atherosclerotic heart disease of native coronary artery without angina pectoris (principal); G89.4 Chronic pain syndrome; E03.9 Hypothyroidism, unspecified; R63.4 Abnormal weight loss
CPT/HCPCS: 36415; 81001; 82040; 82247; 82310; 82374; 82435; 82465; 82565; 82947; 83718; 84075; 84132; 84155; 84295; 84439; 84450; 84460; 84478; 84520; 85025

== ENCOUNTER → 2017-10-10 | Outpatient (CLI) | payer MEDICARE ==
[2017-03-19 13:56] VITALS: BMI 20.4
--- NOTE | 2017-10-10 11:36 | RADIOLOGY IMAGING REPORT ---
FACILITY: PATIENT NAME: Zurdo Munoz : 1945 MR: [id number] V: [id number] EXAM DATE: ORDERING PHYSICIAN: JOHANA TORRES TECHNOLOGIST: Location: [facility] [place] Patient: Zurdo Munoz : 1945 Visit/Account:[id number] Date of Sevice: 10/10/2017 Exam type: ACUTE ABDOMEN SERIES 3 VIEW History: Weight loss, chronic pain and nausea and vomiting Comparison: Single view chest March 25, 2017. Findings: Emphysematous changes again seen throughout the lungs. There is bilateral pleural parenchymal scarri ng. No evidence of focal infiltrates or pleural effusions. The cardiac swelling is normal in size. Ovoid calcification right-sided the neck may be thyroid in origin. The cardiac silhouette is normal in size. There is moderate ectasia the thoracic aorta. Supine and upright abdomen views demonstrate air in the nondilated large and small bowel. No free ai r seen beneath hemidiaphragms. Surgical clips identified in the right upper quadrant of abdomen. Th ere is extensive vascular calcifications throughout the abdomen and pelvis. This diffuse osteopenia the visualized bones and multiple compression fractures in the thoracolumbar spine IMPRESSION: 1. Emphysematous changes but the lungs and chronic pleural parenchymal scarring Nonspecific bowel gas pattern Diffuse osteopenia and multiple compression fractures in the thoracolumbar spine Report Dictated By: Ratna Hale MD at 10/10/2017 11:27 AM Report E-Signed By: Ratna Hale MD at 10/10/2017 11:33 AM WSN:[email or web address]
== END ==
LOC: RAD 09:19
PROVIDERS: ATTEND Internal Medicine
DX: M80.88XA Other osteoporosis with current pathological fracture, vertebra(e), initial encounter for fracture (principal); R91.8 Other nonspecific abnormal finding of lung field
CPT/HCPCS: 74022

== ENCOUNTER → 2017-10-25 | Outpatient (CLI) | payer MEDICARE ==
[2017-03-19 13:56] VITALS: BMI 20.4
--- NOTE | 2017-10-25 12:23 | RADIOLOGY IMAGING REPORT ---
FAC[facility]: [facility] PATIENT NAME: Zurdo Munoz : 1945 MR: [id number] V: [id number] EXAM DATE: ORDERING PHYSICIAN: GILMA MAHAN TECHNOLOGIST: Location: [facility] Patient: Zurdo Munoz : 1945 Visit/Account:[id number] Date of Sevice: 10/25/2017 Carotid ultrasound Indication: Carotid artery atherosclerosis. History of stroke. Comparison: 09/07/2016 TECHNIQUE: Real-time grayscale, color flow and Doppler sonography of the cervical carotid and vertebr al arteries is performed. Stenosis % is determined from velocity criteria extrapolated from diameter data as defined by the Society of Radiologists in Ultrasound Consensus Conference Radiology 2003; 229 ;340-346. Findings: On the right : Peak systolic velocity of the right common carotid artery is 117 cm/s Peak systolic velocity of the right internal carotid artery is 99 cm/s There is normal antegrade flow of the right vertebral artery. The right ICA/CCA ratio is 0.85. There is scattered atherosclerotic plaque most pronounced within the carotid bulb. On the left: Peak systolic velocity of the left common carotid artery is 136 cm/s Peak systolic velocity of the left internal carotid artery is 111 cm/s There is normal antegrade flow of the left vertebral artery. The left ICA/CCA ratio is 0.82 Atherosclerotic plaque is seen within the carotid bulb. IMPRESSION: 1. Bilateral atherosclerotic plaque within the carotid bulbs and proximal internal carotid arteries w ith less than 50% luminal stenosis. No hemodynamically significant stenosis is identified. Report Dictated By: Kiko Stewart at 10/25/2017 12:14 PM Report E-Signed By: Kiko Stewart at 10/25/2017 12:19 PM WSN:[email or web address]
== END ==
LOC: US 03:34
PROVIDERS: ATTEND Internal Medicine Cardiovascular Disease
DX: I65.23 Occlusion and stenosis of bilateral carotid arteries (principal)
CPT/HCPCS: 93880

== ENCOUNTER 2017-11-11 13:09 | Emergency (ER) | payer MEDICARE ==
[2017-03-19 13:56] VITALS: Wt 49.2 kg
[~2017-11-11 13:09] MED LIST changes: +METO5TAB75 PO
--- NOTE | 2017-11-11 13:18 | ER Report ---
History and Physical Time Seen By MD: 13:18 HPI/ROS CHIEF COMPLAINT: Fall with pain HISTORY OF PRESENT ILLNESS: 72-year-old male patient presents to emergency room with complaint of having a fall with back pain that seems to radiate down the right leg. Patient states that he has a history of osteopenia and he was out shooting at the gun range. Patient states he was firing handguns as he needs to work on that. He states when he got up he lost balance and fell backwards on his back. He does have a history of compression fractures and has compression fractures to L1, L2, L4 and was recently diagnosed earlier this week with compression fracture and L5. Patient states that when he fell he had significant amounts of pain. He has pain that seems radiate down the right leg. He does have pain medication at home which he uses for his back pain from compression fractures. He states that that has seemed to help. He denies any loss of bowel or bladder control and saddle paresthesia. REVIEW OF SYSTEMS: Respiratory: No cough, no dyspnea. Cardiovascular: No chest pain, no palpitations. Gastrointestinal: No vomiting, no abdominal pain. Musculoskeletal: As noted above Allergies: Coded Allergies: bupropion (Verified Allergy, Unknown, 03/18/17) fentanyl (Verified Allergy, Unknown, 11/11/17) IN PATCH FORM hydrocodone (Verified Allergy, Unknown, 03/18/17) hydromorphone (Verified Allergy, Unknown, 03/18/17) Home Meds Active Scripts Metoclopramide Hcl (METOCLOPRAMIDE HCL) 5 Mg Tablet, 5 MG PO ACHS PRN for vomiting, #30 TAB 3 Refills Prov:JOHANA TORRES MD 10/28/17 Alprazolam (ALPRAZOLAM) 1 Mg Tablet, 1 TAB PO TID PRN for anxiety, #90 TAB 3 Refills Prov:JOHANA TORRES MD 10/28/17 Sertraline Hcl (SERTRALINE HCL) 100 Mg Tablet, 2 TAB PO QAM, #180 TAB 4 Refills Prov:JOHANA TORRES MD 10/28/17 Levothyroxine Sodium (LEVOTHYROXINE SODIUM) 100 Mcg Tablet, 100 MCG PO QDAY, #90 TAB 3 Refills Prov:JOHANA TORRES MD 10/10/17 Tamsulosin Hcl (TAMSULOSIN HCL) 0.4 Mg Cap.er.24h, 1 CAP PO DAILY, #90 CAP 4 Refills Prov:MARKO MEZA MD 01/03/17 Clopidogrel Bisulfate (PLAVIX) 75 Mg Tablet, 1 TAB PO QDAY, #90 TAB 4 Refills Prov:MARKO MEZA MD 01/03/17 Reported Medications Atorvastatin Calcium (ATORVASTATIN CALCIUM) 10 Mg Tablet, 1 TAB PO QDAY, TAB 11/11/17 Omeprazole (OMEPRAZOLE) 40 Mg Capsule.dr, 40 MG PO DAILY, CAP take 30min before dinner 03/18/17 Tapentadol Hcl (NUCYNTA) 75 Mg Tablet, 75 MG PO Q6H PRN for PAIN 03/18/17 Tizanidine Hcl (TIZANIDINE HCL) 4 Mg Capsule, 4 MG PO TID, CAPSULE 03/18/17 Tapentadol Hcl (NUCYNTA) 100 Mg Tablet, 200 MG PO BID May take 75 mg for breakthrough pain 11/03/16 Polyethylene Glycol 3350 (MIRALAX) 119 Gm Powder, 119 GM PO BID 11/03/16 Magnesium Hydroxide (MILK OF MAGNESIA) Unknown Strength Oral.susp, PO, BOTTLE 11/03/16 Calcium Carb & Cit/Vitamin D3 (CALCIUM + D3 ER TABLET) 1 Each Tablet.er, 1 TAB PO DAILY 11/03/16 Discontinued Scripts Atorvastatin Calcium (ATORVASTATIN CALCIUM) 40 Mg Tablet, 1 TAB PO QHS, #90 TAB 1 Refill Prov:JOHANA TORRES MD 09/20/17 Past Medical/Surgical History Patient has a past medical history of TIA, migraines, palpitations, hyperlipidemia, occasional oxygen use, duodenal stricture, reflux, Flomax, osteoporosis, back fracture, back pain, hypothyroidism, anxiety. Patient has a surgical history of tonsillectomy, cholecystectomy, appendectomy, coronary stent. Patient has a family medical history of cancer. Reviewed Nurses Notes: Yes Hx Smoking: Yes (0.5 PPD) Smoking Status: Former Smoker Hx Substance Use Disorder: No Hx Alcohol Use: No Constitutional Vital Sign - Last 24 Hours 11/11/17 11/11/17 13:17 15:00 Temp 98.1 Pulse 77 80 Resp 18 18 B/P (MAP) 128/80 147/84 (105) Pulse Ox 93 94 O2 Delivery Room Air Room Air Physical Exam General Appearance: The patient is alert, has no immediate need for airway protection and no current signs of toxicity. Respiratory: Chest is non tender, lungs are clear to auscultation. Cardiac: regular rate and rhythm Gastrointestinal: Abdomen is soft and non tender, no masses, bowel sounds normal. Musculoskeletal: Neck: Neck is supple and non tender. Back: Patient has no bruising noted, reviewed does have tenderness in the low back especially around the SI joints. Extremities have full range of motion and are non tender. Skin: No rashes or lesions. DIFFERENTIAL DIAGNOSIS: After history and physical exam differential diagnosis was considered for fracture, contusion, sprain. Medical Decision Making EKG/Imaging Imaging LUMBAR SPINE 4 VIEWS, SACROILIAC JOINTS 3 OR > VIEWS Indication: Back pain., fall with pain Comparison: CT 11/08/2017 FINDINGS: There are 5 lumbar type vertebral bodies. There are chronic appearing vertebral compression fractures at L1-L2 and L4. When compared to lumbar spine films from May 2017, there is a new vertebral compressive deformity at L5 approximately 50% height loss. However, when compared to CT scan dated 11/08/2017 this fracture appears stable. Diffuse multilevel degenerative disc space narrowing is present. No spondylolisthesis is identified There is no acute fracture-dislocation of of the bones of the visualized sacrum and coccyx. The bilateral SI joints are patent. No significant erosive changes identified. The bones of the pelvis are severely osteopenic IMPRESSION: 1. Stable vertebral compression fractures are noted at L1, L2 and L4. Compared to May 2017 study, there is a new vertebral compression fracture involving L5 with approximately 50% height loss. This was present on the November 08 CT scan. If acute vertebral fracture is clinically suspected and additional imaging is needed recommend MRI. 2. Negative sacroiliac joints. Report Dictated By: Bill Moya at 11/11/2017 2:35 PM Report E-Signed By: Bill Moya at 11/11/2017 2:42 PM PELVIS INDICATION: Pain after fall COMPARISON: None available FINDINGS: No evidence of fracture, dislocation, or acute osseous abnormality of the bones of the pelvis. IMPRESSION: 1. No acute osseous abnormality of the pelvis Report Dictated By: Bill Moya at 11/11/2017 2:34 PM Report E-Signed By: Bill Moya at 11/11/2017 2:35 PM LUMBAR SPINE 4 VIEWS, SACROILIAC JOINTS 3 OR > VIEWS Indication: Back pain., fall with pain Comparison: CT 11/08/2017 FINDINGS: There are 5 lumbar type vertebral bodies. There are chronic appearing vertebral compression fractures at L1-L2 and L4. When compared to lumbar spine films from May 2017, there is a new vertebral compressive deformity at L5 approximately 50% height loss. However, when compared to CT scan dated 11/08/2017 this fracture appears stable. Diffuse multilevel degenerative disc space narrowing is present. No spondylolisthesis is identified There is no acute fracture-dislocation of of the bones of the visualized sacrum and coccyx. The bilateral SI joints are patent. No significant erosive changes identified. The bones of the pelvis are severely osteopenic IMPRESSION: 1. Stable vertebral compression fractures are noted at L1, L2 and L4. Compared to May 2017 study, there is a new vertebral compression fracture involving L5 with approximately 50% height loss. This was present on the November 08 CT scan. If acute vertebral fracture is clinically suspected and additional imaging is needed recommend MRI. 2. Negative sacroiliac joints. Report Dictated By: Bill Moya at 11/11/2017 2:35 PM Report E-Signed By: Bill Moya at 11/11/2017 2:42 PM ED Course/Re-evaluation ED Course Patient was medicated exam room, history and physical were obtained. The differential diagnoses were considered. On examination lungs are clear, heart is regular, abdomen soft nontender. Patient did have some tenderness in the low back, especially around the right SI joint. X-rays done of the lumbar spine, the SI joints as well as the pelvis. The x-rays were negative. Discuss findings with patient and his significant other. We will go ahead and discharge him home at this time. He is to limit his activity by pain. He is to ice his back as needed to help with the discomfort. He is to follow-up with his primary care provider if pain persists. Discussed this with the patient and his and they verbalized understanding and agreement with plan. Decision to Disposition Date: Nov 11, 2017 Decision to Disposition Time: 14:54 Depart Departure Latest Vital Signs Vital Signs Date Time Temp Pulse Resp B/P (MAP) Pulse Ox O2 Delivery O2 Flow Rate FiO2 11/11/17 15:00 80 18 147/84 (105) 94 Room Air 11/11/17 13:17 98.1 Impression: Primary Impression: Contusion of lower back Condition: Improved Disposition: HOME OR SELF-CARE Referrals: JOHANA TORRES MD (PCP) Patient Instructions: Contusion in Adults (ED) Additional Instructions: Limit activity by pain. Ice the lower back. Get plenty of rest. Continue with your normal pain medication for the pain. Follow up with your primary care provider in the next week if pain persists. Return to the ER if condition worsens. Problem Qualifiers Primary Impression: Contusion of lower back Encounter type: initial encounter Qualified Codes: S30.0XXA - Contusion of lower back and pelvis, initial encounter KAILEY HUMPHREY Nov 11, 2017 13:18
[2017-11-11] MEDS ORDERED: ATOR10TA65 PO (13:23)
--- NOTE | 2017-11-11 14:38 | RADIOLOGY IMAGING REPORT ---
FACILITY: [facility] PATIENT NAME: Zurdo Munoz : 1945 MR: [id number] V: [id number] EXAM DATE: ORDERING PHYSICIAN: KAILEY HUMPHREY TECHNOLOGIST: Location: [facility] [place] Patient: Zurdo Munoz : 1945 Visit/Account:[id number] Date of Sevice: 11/11/2017 PELVIS INDICATION: Pain after fall COMPARISON: None available FINDINGS: No evidence of fracture, dislocation, or acute osseous abnormality of the bones of the pelvis. IMPRESSION: 1. No acute osseous abnormality of the pelvis Report Dictated By: Bill Moya at 11/11/2017 2:34 PM Report E-Signed By: Bill Moya at 11/11/2017 2:35 PM WSN:[email or web address]
--- NOTE | 2017-11-11 14:46 | RADIOLOGY IMAGING REPORT ---
[place] [facility] [place] Zurdo Munoz : 1945 MR: [id number] V: [id number] EXAM DATE: ORDERING PHYSICIAN: KAILEY HUMPHREY TECHNOLOGIST: Location: [facility] Patient: Zurdo Munoz : 1945 Visit/Account:[id number] Date of Sevice: 11/11/2017 LUMBAR SPINE 4 VIEWS, SACROILIAC JOINTS 3 OR > VIEWS Indication: Back pain., fall with pain Comparison: CT 11/08/2017 FINDINGS: There are 5 lumbar type vertebral bodies. There are chronic appearing vertebral compression fractures at L1-L2 and L4. When compared to lumbar spine films from May 2017, there is a new vertebral compressive deformity at L5 approximately 50% height loss. However, when compared to CT scan dated 11/08/2017 this fracture appears stable. Diffuse multilevel degenerative disc space narrowing is present. No spondylolisthesis is identified There is no acute fracture-dislocation of of the bones of the visualized sacrum and coccyx. The bilateral SI joints are patent. No significant erosive changes identified. The bones of the pelvis are severely osteopenic IMPRESSION: 1. Stable vertebral compression fractures are noted at L1, L2 and L4. Compared to May 2017 study, there is a new vertebral compression fracture involving L5 with approximately 50% height loss. This was present on the November 08 CT scan. If acute vertebral fracture is clinically suspected and ad ditional imaging is needed recommend MRI. 2. Negative sacroiliac joints. Report Dictated By: Bill Moya at 11/11/2017 2:35 PM Report E-Signed By: Bill Moya at 11/11/2017 2:42 PM WSN:[email or web address]
--- NOTE | 2017-11-11 14:46 | RADIOLOGY IMAGING REPORT ---
FACILITY: [facility] PATIENT NAME: Zurdo Munoz : 1945 MR: [id number] V: [id number] EXAM DATE: ORDERING PHYSICIAN: KAILEY HUMPHREY TECHNOLOGIST: Location: [facility] Patient: Zurdo Munoz : 1945 Visit/Account:[id number] Date of Sevice: 11/11/2017 LUMBAR SPINE 4 VIEWS, SACROILIAC JOINTS 3 OR > VIEWS Indication: Back pain., fall with pain Comparison: CT 11/08/2017 FINDINGS: There are 5 lumbar type vertebral bodies. There are chronic appearing vertebral compression fractures at L1-L2 and L4. When compared to lumbar spine films from May 2017, there is a new vertebral compressive deformity at L5 approximately 50% height loss. However, when compared to CT scan dated 11/08/2017 this fracture appears stable. Diffuse multilevel degenerative disc space narrowing is present. No spondylolisthesis is identified There is no acute fracture-dislocation of of the bones of the visualized sacrum and coccyx. The bilateral SI joints are patent. No significant erosive changes identified. The bones of the pelvis are severely osteopenic IMPRESSION: 1. Stable vertebral compression fractures are noted at L1, L2 and L4. Compared to May 2017 study, there is a new vertebral compression fracture involving L5 with approximately 50% height loss. This was present on the November 08 CT scan. If acute vertebral fracture is clinically suspected and ad ditional imaging is needed recommend MRI. 2. Negative sacroiliac joints. Report Dictated By: Bill Moya at 11/11/2017 2:35 PM Report E-Signed By: Bill Moya at 11/11/2017 2:42 PM WSN:[email or web address]
[2017-11-11 15:00] VITALS: BP 147/84
== END 2017-11-11 15:02 | disposition home or self-care (01) ==
LOC: ER 13:22
DX: S30.0XXA Contusion of lower back and pelvis, initial encounter (principal); W01.0XXA Fall on same level from slipping, tripping and stumbling without subsequent striking against object, initial encounter
CPT/HCPCS: 72120; 72170; 72202; 99284

== ENCOUNTER → 2018-03-09 | Outpatient (CLI) | payer MEDICARE ==
[2017-03-19 13:56] VITALS: BMI 20.4
[~2018-03-09] MED LIST changes: +AMOX-559 PO; +ATOR10TA65 PO; -CLON-304 PO; +CLON-333 PO; +FLUT16SP19; +IPRA15SP7 NS; +LEV125 PO; +MIRT-22 PO; +MIRT-25 PO; +Magic Mouthwash PO
[2018-03-09 11:31] LABS: PLATELET COUNT, AUTOMATED 216 K/uL (150-450)
[2018-03-09 11:46] LABS: LDL CHOLESTEROL 66 mg/dl
== END ==
LOC: LAB 11:12
PROVIDERS: ATTEND Internal Medicine
DX: R11.2 Nausea with vomiting, unspecified (principal); R63.4 Abnormal weight loss; I25.10 Atherosclerotic heart disease of native coronary artery without angina pectoris; E03.9 Hypothyroidism, unspecified; G89.29 Other chronic pain
CPT/HCPCS: 36415; 82040; 82247; 82310; 82374; 82435; 82465; 82565; 82947; 83718; 84075; 84132; 84153; 84155; 84295; 84439; 84443; 84450; 84460; 84478; 84520; 85025

== ENCOUNTER → 2018-03-16 | Outpatient (CLI) | payer MEDICARE ==
[2017-03-19 13:56] VITALS: BMI 20.4
[~2018-03-16] MED LIST changes: +DEXTROSE 5%(*) 100 ML BAG 100 ML IVPB PRN; +LIDOCAINE/SOD BICARB 8.4% SYR ID PRN; +NS(*) 0.9% 100 ML BAG 100 ML IVPB PRN; +ZOLEDRONIC ACID 5 MG/100ML BTL 100 ML IVPB ONE
[2018-03-16 08:27] VITALS: BP 139/83
[2018-03-16 09:25] VITALS: BP 117/89
== END ==
LOC: SPU 08:14
PROVIDERS: ATTEND Internal Medicine Nephrology
DX: M81.8 Other osteoporosis without current pathological fracture (principal); Z79.83 Long term (current) use of bisphosphonates; Z87.81 Personal history of (healed) traumatic fracture; Z87.01 Personal history of pneumonia (recurrent)
CPT/HCPCS: 96365; J3489; J7050

== ENCOUNTER → 2018-07-04 | Outpatient (CLI) | payer MEDICARE ==
[2017-03-19 13:56] VITALS: BMI 20.4
[~2018-07-04] MED LIST changes: +ATOR20TA65 PO; -DEXTROSE 5%(*) 100 ML BAG 100 ML IVPB PRN; +DIPH0.5S2 IM; +GABA-547 PO; -LIDOCAINE/SOD BICARB 8.4% SYR ID PRN; -MIRT-27 PO; +MIRT15TA11 PO; -NS(*) 0.9% 100 ML BAG 100 ML IVPB PRN; +PRED20TA6 PO; +VARE1TAB3 PO; -ZOLEDRONIC ACID 5 MG/100ML BTL 100 ML IVPB ONE
--- NOTE | 2018-07-04 16:32 | RADIOLOGY IMAGING REPORT ---
FACILITY: [facility] PATIENT NAME: Zurdo Munoz : 1945 MR: [id number] V: [id number] EXAM DATE: ORDERING PHYSICIAN: VERNON CASPER TECHNOLOGIST: Location: [facility] [place] Patient: Zurdo Munoz : 1945 Visit/Account:[id number] Date of Sevice: 07/04/2018 CHEST PA LAT INDICATION: COMPARISON: 03/25/[address] 06/15/2017 FINDINGS: Heart size within normal limits. Mild pulmonary vascular congestion is present without focal infiltrate. Atelectasis versus scarring is noted involving the left lower lobe. Lung volumes are mildly hyperexpanded. There is no pneumothorax or pleural effusion. IMPRESSION: 1. Increased pulmonary vascular congestion without emmanuel pulmonary edema. 2. Left lower lobe atelectasis versus scarring Report Dictated By: Bill Moya at 07/04/2018 4:26 PM Report E-Signed By: Bill Moya at 07/04/2018 4:28 PM WSN:[email or web address]
== END ==
LOC: RAD 16:03
PROVIDERS: ATTEND Nurse Practitioner Primary Care
DX: R91.8 Other nonspecific abnormal finding of lung field (principal)
CPT/HCPCS: 71046

== ENCOUNTER → 2018-09-15 | Outpatient (CLI) | payer MEDICARE ==
[2017-03-19 13:56] VITALS: BMI 20.4
[~2018-09-15] MED LIST changes: +IOPAMIDOL 76% 100 ML INFUS BTL 100 ML ONE
--- NOTE | 2018-09-15 12:21 | RADIOLOGY IMAGING REPORT ---
FACILITY: [facility] [place] PATIENT NAME: Zurdo Munoz : 1945 MR: [id number] V: [id number] EXAM DATE: ORDERING PHYSICIAN: JOHANA TORRES TECHNOLOGIST: Location: [facility] - [place] Patient: Zurdo Munoz : 1945 Visit/Account:[id number] Date of Sevice: 09/15/2018 CT ABDOMEN PELVIS W/ CON HISTORY: Elevated amylase and lipase TECHNIQUE: CT abdomen and pelvis with intravenous contrast. Contiguous axial images of the abdomen and pelvis was performed from the lung bases to the symphysis pubis. One of the following dose optimization techniques was utilized in the performance of this exam: Autom ated exposure control; adjustment of the mA and/or kV according to the patient's size; or use of an i terative reconstruction technique. Specific details can be referenced in the facility's radiology C T exam operational policy. CONTRAST: 75 cc of Isovue-370 COMPARISON: 11/08/2017 FINDINGS: Visualized lung bases: Descending thoracic aorta is ectatic and atherosclerotic measures 2.9 x 2.7 c m. Consolidation of the medial segment right middle lobe is slightly more prominent than prior but a ppears inflammatory.. Adjacent 4 mm right middle lobe micronodule is stable. Hepatobiliary: Liver is enlarged measures 18.7 cm in craniocaudal length with fatty infiltration. N o focal liver lesions. Gallbladder is absent. Bile ducts are prominent. Common bile duct measures 7 mm at the head of the pancreas which is stable and could reflect postcholecystectomy change. Hepat ic veins and portal veins are patent. Spleen: Enlarged measures 17.6 cm in craniocaudal length, previously 15.2 cm in length. Adrenals: Negative. Kidneys/: Negative. Pancreas: No CT findings to suggest pancreatitis. Pancreatic duct is decompressed. GI: No bowel obstruction or focal inflammation. There is colonic diverticulosis. Vessels/spaces/nodes: Significant atherosclerotic calcifications noted. Abdominal aorta is ectatic and measures up to 2.8 cm. Bones/soft tissues: Patient is osteopenic with multiple compression fractures from T11 through L5 wh ich are stable from prior exam. IMPRESSION: 1. Enlarged fatty liver not grossly changed from prior examination. Gallbladder is absent. Biliary ductal prominence is stable may reflect postcholecystectomy change. 2. Splenomegaly with the spleen measuring 17.6 cm in craniocaudal length slightly larger than prior exam. 3. Numerous other chronic findings detailed above. Report Dictated By: Jason Cassidy MD at 09/15/2018 12:03 PM Report E-Signed By: Jason Cassidy MD at 09/15/2018 12:13 PM WSN:[id number]
== END ==
LOC: CT 03:58
PROVIDERS: ATTEND Internal Medicine
DX: K76.0 Fatty (change of) liver, not elsewhere classified (principal); R16.1 Splenomegaly, not elsewhere classified; Z90.49 Acquired absence of other specified parts of digestive tract
CPT/HCPCS: 36415; 74177; 82150; 83690; Q9967; 82040; 82247; 82310; 82374; 82435; 82565; 82947; 84075; 84132; 84155; 84295; 84450; 84460; 84520

== ENCOUNTER → 2018-09-21 | Outpatient (CLI) | payer MEDICARE ==
[2017-03-19 13:56] VITALS: BMI 20.4
[~2018-09-21] MED LIST changes: +ASPI-1471 PO; +CLOP75TA PO; -IOPAMIDOL 76% 100 ML INFUS BTL 100 ML ONE
== END ==
LOC: LAB 08:39
PROVIDERS: ATTEND Internal Medicine
DX: K85.90 Acute pancreatitis without necrosis or infection, unspecified (principal); R10.9 Unspecified abdominal pain; I25.10 Atherosclerotic heart disease of native coronary artery without angina pectoris
CPT/HCPCS: 36415; 82040; 82150; 82247; 82310; 82374; 82435; 82565; 82947; 83690; 84075; 84132; 84155; 84295; 84450; 84460; 84520

== ENCOUNTER 2018-09-25 03:15 | Day surgery (SDC) | payer MEDICARE ==
[2017-03-19 13:56] VITALS: Ht 165.1 cm; Wt 55.3 kg
--- NOTE | 2018-09-20 11:19 | HISTORY AND PHYSICAL ---
DATE OF ADMISSION: September 25, 2018 CHIEF COMPLAINT Phimosis. HISTORY OF PRESENT ILLNESS Patient is a 73-year old white male who was referred to the Urology Clinic for dysuria with decrease of force of stream. Patient was empirically started on Flomax as well as given a topical mixture of anti-inflammatory creams of 3:1 Pramosone cream and Silvadene. On return to the clinic, he stated that his urinary symptoms had not significantly changed and he still cannot retract his foreskin. An ultrasound of the prostate was performed, which revealed a small prostate of only 14 cc volume. Given his significant dysuria and tight foreskin, we will now perform circumcision to see if that relieves some of his voiding symptoms. PAST MEDICAL HISTORY * Coronary artery disease. * Hypocholesterolemia. * Chronic low back pain. * Osteoporosis with compression fractures in back. * Anxiety and depression. * Hypothyroidism. * Congestive heart failure. * Questionable COPD. PAST SURGICAL HISTORY * Appendectomy. * Tonsillectomy. * Cholecystectomy. * Hernia repair. * EGD. * Cardiac stenting. ALLERGIES None. CURRENT MEDICATIONS * Chantix. * Prednisone. * Lipitor. * Gabapentin. * Alprazolam. * Plavix. * Mirtazapine. * Flomax. * Levothyroxine. * Sertraline. * Omeprazole. * MiraLAX. * Atrovent inhaler. SOCIAL HISTORY Patient is and lives in [place], [place]. He has a long smoking history. FAMILY HISTORY Noncontributory. REVIEW OF SYSTEMS Patient denies productive cough, fever, chills, chest pain, current dyspnea on exertion, bleeding disorder, liver disease or chronic headaches. PHYSICAL EXAMINATION GENERAL: Patient is an elderly, thin white male in no acute distress. HEENT: Normocephalic, atraumatic. CHEST: Clear to auscultation bilaterally. CARDIOVASCULAR: Regular rate and rhythm. ABDOMEN: Soft, nontender. No masses palpated. : Deferred to OR. EXTREMITIES: No clubbing, cyanosis or edema. NEUROLOGIC: Nonfocal. ASSESSMENT 73-year old white male with significantly tight phimotic foreskin with lower urinary tract symptoms and dysuria. PLAN We will perform adult circumcision. [facility]
[2018-09-22 10:23] LABS: PLATELET COUNT, AUTOMATED 250 K/uL (150-450)
[~2018-09-25] VITALS: Ht 165.1 cm; Wt 55.3 kg
[2018-09-25] MEDS ORDERED: LIDOCAINE/SOD BICARB 8.4% SYR ID ONE (06:30)
[2018-09-25] MEDS ORDERED: NORMOSOL R SOLN(*) 1000 ML BAG 1,000 ML IV PRN (06:30)
[2018-09-25] MEDS ORDERED: ceFAZolin(*) 1 GM VIAL 1 GM in NS(*) 0.9% 100 ML MINI-BAG 100 ML IVPB ONE (06:30)
[2018-09-25] MEDS ORDERED: MIDAZOLAM 2 MG/2 ML VIAL IVP PRN (06:30)
[2018-09-25] MEDS ORDERED: ceFAZolin(*) 1 GM VIAL 1 GM, GENTAMICIN(*) 80 MG/2 ML VIAL 60 MG in NS 0.9% IRRIGATION ... IR ONE (06:30)
[2018-09-25 06:36] VITALS: BP 123/85
[2018-09-25] MEDS ORDERED: NEOMYCIN/POLYMYX/BACITR 30 GM TP ONE (06:41)
[2018-09-25] MEDS ORDERED: MINERAL OIL LIGHT 10 ML VIAL ONE (06:41)
[2018-09-25] MEDS ORDERED: ROPIVACAINE 0.2% 20 ML VIAL ONE (06:42)
[2018-09-25] MEDS ORDERED: ONDANSETRON 4 MG/2 ML VIAL ONE (06:49)
[2018-09-25] MEDS ORDERED: PROPOFOL EMUL(*) 10MG/ML 20 ML 20 ML ONE (06:49)
[2018-09-25] MEDS ORDERED: DEXAMETHASONE SOD 4 MG/ML VIAL ONE (06:49)
[2018-09-25] MEDS ORDERED: LIDOCAINE MPF 1% 5 ML VIAL ONE (06:49)
[2018-09-25] MEDS ORDERED: fentaNYL CITR 100 MCG/2 ML AMP ONE (06:52)
[2018-09-25] MEDS ORDERED: MORPHINE PF 5 MG/10 ML AMP ONE (07:14)
[2018-09-25] MEDS ORDERED: KETOROLAC 30 MG/ML VIAL ONE (08:08)
[2018-09-25] MEDS ORDERED: HYDR-653 PO (09:05)
[2018-09-25] MEDS ORDERED: DOCU-416 PO (09:11)
[2018-09-25] MEDS ORDERED: NEOM1PAC11 TP (09:11)
--- NOTE | 2018-09-25 09:16 | OPERATIVE REPORT 1 ---
EVENT DATE: September 25, 2018 SURGEON: Sumeet Melchor MD ANESTHESIOLOGIST: Grupo Quick MD ANESTHESIA: General and local penile block with 0.2% ropivacaine. PREOPERATIVE DIAGNOSIS Phimosis. POSTOPERATIVE DIAGNOSIS Phimosis. PROCEDURE PERFORMED Circumcision. PATHOLOGY Foreskin for permanent analysis. ESTIMATED BLOOD LOSS 5 cc. IV FLUIDS Crystalloids. DRAINS None. COMPLICATIONS None. CONDITION The patient is taken to recovery room awake and in stable condition. STATEMENT OF MEDICAL NECESSITY The patient is a 73-year-old white male with a long history of dysuria with decrease in force of stream. He was found to have a significantly tight foreskin, causing significant symptoms. He is now being brought to the operating room for planned adult circumcision. DESCRIPTION OF PROCEDURE The patient was brought to the operating room. After general anesthetic was obtained, he was placed supine on the operating room table and prepped and draped sterilely. A penile block was given with 0.25% ropivacaine. Following this, a dorsal slit was performed to provide exposure to the glans. This was then prepped with Betadine on the field and the gloves were changed. At this point, the inner table of the foreskin was incised with the knife for approximately 5 mm from the coronal sulcus. The foreskin was then retracted to its normal anatomical position and the outer table also marked with a marking pen and incised as well. These two were connected on the dorsal aspect and redundant foreskin removed with electrocautery. Small bleeding vessels were controlled with electrocautery. The wound was irrigated with antibiotic solution and the skin edges were then reapproximated with interrupted 5-0 Chromic stitches. Antibiotic ointment was placed along the incision site and a roll gauze was placed for a dressing at the conclusion of the procedure. The patient tolerated the procedure well and was taken to the recovery room in stable condition. PLAN We will allow the patient to be discharged home today on [place], Colace and antibiotic ointment. He is to remove the dressing in a couple of hours. We will plan to see him in followup in four to six weeks. [facility]ER[facility]E
[2018-09-25 09:30] VITALS: BP 125/74
[2018-09-25 09:47] VITALS: BP 130/82
[2018-09-25 09:50] VITALS: BP 121/84
== END 2018-09-25 09:30 | disposition home or self-care (01) ==
LOC: OR 03:15
PROVIDERS: ATTEND Urology
DX: N47.1 Phimosis (principal); R30.0 Dysuria
CPT/HCPCS: 54161; 81001; 85025; 87088; 87186; 88305; A9270; J0690; J1100; J1885; J2001; J2270; J2405; J2704; J2795; 87077; J3010

== ENCOUNTER → 2018-10-11 | Outpatient (CLI) | payer MEDICARE ==
[2017-03-19 13:56] VITALS: BMI 20.4
[~2018-10-11] MED LIST changes: +DOCU-416 PO; +HYDR-653 PO; +NEOM1PAC11 TP
[2018-10-11 17:04] LABS: PLATELET COUNT, AUTOMATED 214 K/uL (150-450)
== END ==
LOC: LAB 16:32
PROVIDERS: ATTEND Internal Medicine
DX: E03.9 Hypothyroidism, unspecified (principal); R21 Rash and other nonspecific skin eruption; I25.10 Atherosclerotic heart disease of native coronary artery without angina pectoris
CPT/HCPCS: 36415; 82040; 82247; 82310; 82374; 82435; 82565; 82947; 84075; 84132; 84155; 84295; 84450; 84460; 84520; 85025; 85651; 86038; 86140; 86225; 86235